=== PATIENT | male | born 1965 | race Caucasian/White ===

== ENCOUNTER 2016-09-16 16:54 | Observation (INO) | payer OTHER ==
[~2016-09-16] VITALS: Ht 177.8 cm; Wt 78.0 kg
[~2016-09-16 16:54] MED LIST: ALBU8.5H2 INHALATION; ALFU10TA11 PO; CHOL10008 PO; CYCL10TA9 PO; EZET10TA PO; GABA-504 PO; METO-272 PO; MORP15TA PO; MULT-1018 PO; OMEP40CA36 PO; OXYC-474 PO; PROC10TA PO; RANI150C4 PO; TAMS0.4C98 PO; WARF5TAB7 PO
[2016-09-16 18:36] VITALS: PULSE 100
[2016-09-16 19:05] VITALS: BP 127/88; PULSE 97; RESP 18; O2SAT 96
--- NOTE | 2016-09-16 19:05 | NUR ---
Arrived to unit Patient arrived to [facility] via [facility] transport. Patient sinus tach in the 100s on arrival. All other VSS. Patient is A&Ox3. Patient resting in bed, at bedside, call light within reach. MD notified of patients arrival.
[2016-09-16] MEDS ORDERED: [UNRECOGNIZED DRUG - OTHER] IV SCH (19:30)
[2016-09-16] MEDS ORDERED: KCL IV SCH (19:30)
[2016-09-16] MEDS ORDERED: NACL IV SCH (19:30)
[2016-09-16] MEDS ORDERED: NITR0.3T6 SL (19:55)
[2016-09-16] MEDS ORDERED: ONDA-53 PO (19:55)
[2016-09-16] MEDS ORDERED: DABI150C PO (19:57)
[2016-09-16] MEDS ORDERED: MORP30CA17 PO (19:58)
[2016-09-16] MEDS ORDERED: DILT-17 PO (20:01)
[2016-09-16] MEDS ORDERED: METO50TA3 PO (20:01)
[2016-09-16 20:42] LABS: TROPONIN T < 0.010 ug/L (0.0-0.011)
[2016-09-16 20:52] LABS: Phosphorus 3.1 mg/dL (2.5-4.9)
[2016-09-16 21:07] VITALS: BP 133/89; PULSE 91; RESP 20; O2SAT 94
[2016-09-16] MEDS: Dabigatran 150 mg Capsule PO SCH (21:15)
[2016-09-16] MEDS ORDERED: Azithromycin Inj 500 MG in Dextrose 5% w/Vial Mate 250 ML IV SCH ×2 (21:20→21:30)
--- NOTE | 2016-09-16 21:20 | PCM.HPMED ---
Subjective Date of Service Sep 16, 2016 Primary Provider: Admitting Physician: Cass Brooks MD Primary Care Physician: Other,Physician Attending Physician: Cass Brooks MD Chief Complaint: Transfer from [facility] due to ventricular tachycardia episodes [facility] History of present illness 51-year-old man with DM, chronic paradoxic atrial fibrillation, on Pradaxa/ diltiazem, presented to [facility] ER after nausea this morning proceeding to vomit and having diarrhea initially food then bile without blood in stool or vomitus then chest pain ensued and he was found to be in RVR 200s in the ER. Chest pain resolved as diltiazem drip was started and HR was controlled. Recent colonoscopy EGD have been normal per patient. Patient has had preceding cough for 2 weeks and green phlegm for 2 days. Children have been sick Last admitted 3 months ago [facility] for nausea vomiting diarrhea that had led to RVR. Peripheral neuropathy present but no gastroparesis diagnosis. No hx of small bowel obstruction and no abdominal operations. No constipation. No GERD sensation today. ate the same food last night and is not sick. Ambulatory. In the ER, pt also noted to have PVC episodes, [facility] transfer in anticipation for cardioversion/CAD[facility]. However, then the Afib converted to Sinus tachy by 5pm per ER doc, but due to vomiting / nausea, dilt gtt ongoing, since he vomited his dilt this am. In PCC, heart rate 99. Review of Systems - none of the following - F/C/ wt change/ / acid reflux / bleeding/bruising / leg swelling / change in voiding / rash FAMILY HX no irregular heartbeats SOCIAL HX current smoker 1 pack per day MEDICATIONS pradaxa, Zetia, not on decadron as listed on formerly [facility] notes, dilt, metoprolol morphine insulin Albuterol flomax alfuzosin Flexeril Gabapentin 400 3 times a day Omeprazole Ranitidine Past Medical/Surgical HX DM2 HTN afib BPH Dysphasia/GERD/colon polyps/weight loss significant 2015/constipation Hearing deficit AK I due to meds status post hemodialysis Allergies Coded Allergies: lisinopril (Verified Allergy, Unknown, 11/30/15) simvastatin (Verified Allergy, Unknown, 3/28/16) varenicline (Verified Allergy, Unknown, 11/30/15) PMH Social History Hx Alcohol Use: No Hx Substance Use: No Smoking Status: Current Some Day Smoker Exam Vital Signs Vital Sign - Last Date Time Temp Pulse Resp B/P Pulse Ox O2 Delivery O2 Flow Rate FiO2 09/16/16 19:05 36.5 97 18 127/88 96 Room Air Lab and Diagnostics Labs Exam on admission Fatigued appearance NAD A and O x 3 NC/AT no icterus no injected eyes EOMI PERRL /no pharyngeal lesions/ no oral lesions / hearing intact Supple neck CTAB equal chest rise / no accessory muscle use / speaks in full sentences / no rrw RRR S1 S2 / no mrg / 2+ radial pulses Soft nt nd + BS no hepatosplenomegaly No edema no cyanosis no ecchymosis of lower extremities No rash / no jaundice [facility] notes EKG QTC Troponin 0.04 WBC 21 Hemoglobin 15 LFTs normal except alkaline phosphatase 158 Creatinine 0.8 Potassium sodium magnesium normal 01/2016 echo Interpretation Summary The left ventricle is grossly normal size. The left ventricle is hyperdynamic. The ejection fraction is estimated to be 70-75%. The right ventricle is normal in size and function. No significant valvular pathology seen. 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 -- IV Dilts, held metoprolol for now, pradaxa, nothing by mouth, monitor electrolytes, serial trop Vomiting and diarrhea recurrent -- Consider gastroparesis, no known triggers Bronchitis -- Sputum culture pending, PCR viral strep screen pending, when necessary duo nebs, Rocephin and azithromycin -- Consider H CAP, since admitted 3 months ago for vomiting diarrhea RVR at [facility] Chronic issues known prior to admission, present on admission GERD DM chronic pain BPH --SSI, otherwise resume home medications Diet NPO DVT prophylaxis lovenox Code full Disposition inpt status Assessment and plan were discussed with patient Cass Brooks MD Sep 16, 2016 21:20
[2016-09-16] MEDS ORDERED: cefTRIAXone Inj 1,000 MG in IV Premix 1 EACH IV SCH (21:30)
[2016-09-16] MEDS: Famotidine Inj 20 MG in IV Premix 1 EACH IV SCH (22:21)
[2016-09-16 23:07] VITALS: BP 129/86; PULSE 95; RESP 20; O2SAT 97
--- NOTE | 2016-09-17 01:10 | NUR ---
Pain Pt has chronic back pain from many years. He is taking regularly at home large amounts of prescribed analgesics. Currently, HS provider ordered 6mg Morphine IV push q3h. Pt continues to rate pain between 8-9 with or without Morphine.
[2016-09-17] MEDS: Diltiazem 5 mg/mL 5 mL Inj IVPUSH SCH ×2 (02:30→08:03)
[2016-09-17] MEDS ORDERED: Insulin Human REGular 300 Unit/3 mL Inj SUBQ SCH ×2 (02:30→07:30)
[2016-09-17 03:24] VITALS: BP 129/82; PULSE 80; RESP 22; O2SAT 95
[2016-09-17 04:10] VITALS: BP 148/91; PULSE 83; RESP 20; O2SAT 98
[2016-09-17 05:06] VITALS: PULSE 94
[2016-09-17 07:57] VITALS: BP 147/98; PULSE 86; RESP 20; O2SAT 96
[2016-09-17] MEDS: Famotidine Inj 20 MG in IV Premix 1 EACH IV SCH (08:03)
[2016-09-17] MEDS: Dabigatran 150 mg Capsule PO SCH (08:04)
[2016-09-17 10:06] VITALS: PULSE 72
[2016-09-17] MEDS ORDERED: Glucose 40% Oral Gel 15 Gm Tube PO PRN (10:50)
[2016-09-17] MEDS ORDERED: Morphine ER 30 mg (MS Contin) Tablet PO SCH (11:15)
[2016-09-17] MEDS ORDERED: Diltiazem CD 120 mg ER24 Capsule PO SCH (12:01)
[2016-09-17] MEDS: Insulin LISPRO 300 Unit/3 mL Inj SUBQ SCH ×2 (12:15→17:30)
--- NOTE | 2016-09-17 12:28 | CONS ---
[address] [address] CONSULTATION REPORT PATIENT: RENA SHEPHERD : 1965 MR#: [id number] ADMIT: 09/16/2016 JOB ID: [id number] DATE OF SERVICE: 09/17/2016 CHIEF COMPLAINT: I was asked by Dr. Thomas to consult on this patient given admission with atrial fibrillation. HISTORY OF PRESENT ILLNESS: The patient is a 51-year-old man with past medical history significant for atrial fibrillation. He is followed by Dr. Stark in Cardiology. He has generally done very well on a dose of Cardizem as well as metoprolol. He is also on Pradaxa. He says over the past several months he has been having problems with intermittent stomach problems. He said that he has diabetes and apparently was worked up for gastroparesis which was unremarkable. He has had both endoscopy and colonoscopy in November 2015, which did not establish any significant diagnosis, although he had peptic duodenitis, chronic gastritis, and colon polyps. Yesterday he got up in the morning and just did not feel well. He had some nausea and vomiting. After that settled down he tried to take his a.m. meds which include the medications used to control his atrial fibrillation. He was not able to keep anything down and he promptly vomit up most of his medications as well. He went to lie down and see if things would settle down and then noticed that his heart rate was high and he also felt some tightness in his arm. He felt he had atrial fibrillation. He was seen at [facility] and he was found to be in AFIB with high rate. He was starting on a diltiazem drip where his heart rate was controlled and ultimately he converted to sinus rhythm. Since being here he has been in sinus rhythm. He describes his stomach symptoms as starting with hiccups followed by a lot of gas. He is trying to adjust his diet to control these symptoms, including his problems with significant GERD. For example, he has eliminated carvajal peppers from his diet. Since being admitted, he is now feeling well. He denies any nausea or vomiting. He is now in sinus rhythm. He denies chest pain, shortness of breath, orthopnea, PND, lower extremity edema. PAST MEDICAL HISTORY/PROBLEM LIST: 1. History of atrial fibrillation. 2. History of stomach issues. 3. History of diabetes mellitus. HOME MEDICATIONS: Include: 1. Pradaxa. 2. Cardizem 120 mg daily. 3. Metoprolol 50 mg b.i.d. 4. Omeprazole. 5. Zetia. ALLERGIES: INCLUDE LISINOPRIL, SIMVASTATIN, VARENICLINE. SOCIAL HISTORY: He is a smoker. No significant alcohol. FAMILY HISTORY: No early coronary disease. REVIEW OF SYSTEMS: Constitutional: No fevers, chills, night sweats, or weight loss. GI: Nausea and vomiting as noted. Issues with stomach upset, GERD. With recent workup by GI. Endocrine: Diabetes mellitus. No heat or cold intolerance. Musculoskeletal: No joint pain. No joint swelling. Heme: No easy bruising or bleeding. Neuro: No history of chronic headaches. ENT: No sore throat or difficulty swallowing. Ophtho: No vision changes. Derm: No rashes or skin breakdown. Psych: No acute issues. Renal: No history of dysuria or hematuria. Cardiac: As per HPI. No orthopnea, PND, or lower extremity edema. All other review of systems on a 12-point review of systems is negative. PHYSICAL EXAMINATION: Blood pressure is 147/98, heart rate 86, saturations are 96% on room air. Constitutional: In no acute distress. Speaking in full sentences without apparent shortness of breath. Head and neck: Normocephalic, atraumatic. Vascular: No carotid bruits appreciated, 2+ distal pulses. Heart: Regular rate and rhythm. I do not appreciate murmurs, gallops, or rubs. Lungs: Coarse breath sounds followed by a cough. He says he has had a somewhat chronic cough over the last month. Back: No CVA tenderness to palpation. Abdomen: Soft, with some diffuse tenderness but no rebound or guarding. Nondistended. Extremities: Warm. No appreciable edema. As noted, 2+ distal pulses. Skin: Without breakdown appreciated. Neuro: Alert and oriented x3. Gait is not tested. Psych: Appropriate mood and affect. ENT: Mucous membranes are moist. Heme: no bruising appreciated CURRENT MEDICATIONS: Include metoprolol 50 b.i.d., Zetia 10 mg daily, gabapentin 400 t.i.d., Pradaxa 150 mg b.i.d., tamsulosin 0.4 mg daily, diltiazem as needed, ceftriaxone and azithromycin for his lung issues, and insulin. I do not see a long-acting calcium channel kandace on his current med list. LABORATORY DATA: I do not have access to an EKG but telemetry shows sinus rhythm. Other more recent studies show an echocardiogram which was performed this year which showed normal LV size and systolic function. No significant structural disease. Current imaging from here shows a chest x-ray that showed no acute cardiopulmonary disease. Labs from yesterday show sodium 135, chloride and bicarb of 97 and 24 respectively, BUN and creatinine 10 and 0.49, glucose 296. Troponin less than 0.01. I do not have a hematology but I presume this was done at [facility]. IMPRESSION: The patient has had ongoing problems with stomach upset and other issues. He developed nausea and vomiting yesterday. He did try to take his a.m. meds, which include medications for control of his atrial fibrillation, but he vomited these up and he went into atrial fibrillation while he was feeling poorly. He was put on a diltiazem drip and promptly cardioverted. He is now back on the metoprolol, which is one of his home medications, but currently is not on his calcium channel kandace. RECOMMENDATIONS: 1. As the atrial fibrillation occurred in the setting of nausea and vomiting, and he did not have the medications in his system, I think it would be reasonable to place him back on his outpatient medications, so we need to add back his Cardizem CD. 2. Continue with Pradaxa. 3. I would have him walk around and see how he feels; see if he has any changes in rhythm or any other concerning symptoms such as shortness of breath. 4. Regarding his gastrointestinal issues, I think we should see if he can eat and tolerate food. If he can do so, and everything else remains stable, I will leave it to the hospital team as to whether he is ready for discharge. 50 minutes was spent reviewing the patient's chart (including old records), speaking with an examining the patient as well as writing orders. NEEL
[2016-09-17 12:53] VITALS: BP 153/93; PULSE 71; RESP 18; O2SAT 98
--- NOTE | 2016-09-17 15:04 | NUR ---
Activity Patient A&O x3 and is independent in the room. Tele SR in the 70s and all other VSS. Patient has been up ambulating in the ramires several times today. He has chronic back pain for which he takes routine and PRN morphine. Patient ate 100% of his lunch and is toelrating PO intake well. Denies N/V today. Patient sitting in bed, watching TV with at the bedside.
--- NOTE | 2016-09-17 17:26 | PCM.DIMED ---
LEEROY LIVINGSTON DO 09/17/16 1726: Discharge Instructions Date of Service Sep 17, 2016 Dates of Hospitalization Sep 16, 2016 at 18:32 Discharge Diagnosis Discharge Diagnosis 1. Atrial fibrillation with Rapid Ventricular Responses 2. Vomiting and diarrhea recurrent 3. Bronchitis 4. Hyperglycemia non-DKA 5.GERD 6.DM 7.chronic pain 8.BPH Diet No restrictions, Heart Healthy, Diabetic (Limit Carb intake Please refer to Dr. Juárez's the Diabetic Solution) Activity No restrictions Call your provider Fever or Chills, Shortness of breath, Bleeding, Chest pain, Vomitting Patient Instructions 1. Ventricular tachycardia episodes, Continue Home medications Follow up with PCP within one week Follow up with cardiology in 1-2 weeks 2. Vomiting and diarrhea recurrent - Follow up with your Primay care doctor in one week - Keep well hydrated 3. Bronchitis -Continue with home medications - 4. Hyperglycemia non-DKA -Diabetic diet low carb 45 g daily Please refer to Dr. Juárez's the Diabetic Solution - monitor blood sugars daily - Goal A1c less than 6.4 Resume home medications Follow-up plan See above Follow-up with PCP in: 1 week Deion Thomas MD 09/17/16 2123: Discharge Instructions Attending's Statement The patient was seen and examined together with Dr. Livingston on 09/17/2016 and I agree with the history, exam and plan as outlined in the note above. . LEEROY LIVINGSTON DO Sep 17, 2016 17:26 Deion Thomas MD Sep 17, 2016 21:23
--- NOTE | 2016-09-17 17:42 | PCM.DC.MED ---
Discharge Summary Date of Service Sep 17, 2016 Dates of Hospitalization Date of Hospital Admission Sep 16, 2016 at 18:32 Date of Discharge: Sep 17, 2016 Providers: Admitting Physician: Cass Brooks MD Primary Care Physician: Other,Physician Attending Physician: Cass Brooks MD Diagnosis at Time of Discharge Diagnosis at Time of Discharge 1. Atrial fibrillation with Rapid Ventricular Response 2. Vomiting and diarrhea recurrent 3. Bronchitis 4. Hyperglycemia non-DKA 5. GERD 6. DM 7. Chronic pain 8. BPH . Consultations Cardiology Procedures XRay, CTs & MRIs X-RAY CHEST IMPRESSION: No acute cardiopulmonary disease. Dictated by: Maury Sneed RRA Interpreted: Kelli Rangel MD on 12/22/2015 at 13: 55 Transcribed by: ANTWAN on 12/22/2015 at 13:55 Approved by: Kelli Rangel M.D. on 12/22/2015 at 14:56 . Brief History From the H&P performed by Dr. Cass Brooks MD on 09/16/16: 51-year-old man with DM, chronic paradoxic atrial fibrillation, on Pradaxa/ diltiazem, presented to [facility] ER after nausea this morning proceeding to vomit and having diarrhea initially food then bile without blood in stool or vomitus then chest pain ensued and he was found to be in RVR 200s in the ER. Chest pain resolved as diltiazem drip was started and HR was controlled. Recent colonoscopy EGD have been normal per patient. Patient has had preceding cough for 2 weeks and green phlegm for 2 days. Children have been sick Last admitted 3 months ago [facility] for nausea vomiting diarrhea that had led to RVR. Peripheral neuropathy present but no gastroparesis diagnosis. No hx of small bowel obstruction and no abdominal operations. No constipation. No GERD sensation today. ate the same food last night and is not sick. . Hospital Course 1. Afib with ventricular tachycardia episodes, present on admission. Resolved. - Known paroxysmal atrial fibrillation, with resolved RVR that was triggered by recurrent vomiting - NS 1 L IV fluid, completed - Continue home morphine for chronic pain, completed, continue as outpatient - Continue home diltiazem dose as outpatient - Continue metoprolol as outpatient - Continue Pradaxa as outpatient , - Serial trop Q6, negative - Cardiology consulted we appreciate their time and expertise 2. Vomiting and diarrhea recurrent, resolved - Consider gastroparesis, History of uncontrolled blood sugar last A1c 8.6 - Follow up with PCP 3. Hyperglycemia non-DKA - Continue Diabetic diet low carb 45 g daily - Monitor blood sugars daily - Follow up with PCP to adjust medication regimen . Exam Vital Signs (Last) Date Time Temp Pulse Resp B/P Pulse Ox O2 Delivery O2 Flow Rate FiO2 09/17/16 12:53 36.8 71 18 153/93 98 Room Air Exam General: Alert, Oriented X3, Cooperative, No Acute Distress Head: Normocephalic, atraumatic Eyes: PERRLA, EOMI. ENT: Mucous Membranes Moist/Mcgrath Chest & Lungs: Clear to auscultation bilaterally with no crackles, wheezes, or rhonchi. Cardiovascular: Regular Rate/Rhythm, Normal S1, Normal S2, No Murmurs/Rubs/ Gallops Abdomen: Non-tender, Non-distended, No masses, Normoactive bowel tones, Soft Extremities: No cyanosis/clubbing/edema bilaterally Neurological: Grossly Neurologically Intact Test 09/16/16 19:55 Sodium Level 135mEq/L (134-144) Potassium Level 4.4mEq/L (3.5-5.2) Chloride Level 97mEq/L (97-108) Carbon Dioxide Level 24mmol/L (18-29) Blood Urea Nitrogen 10mg/dL (6-24) Creatinine 0.49mg/dL (0.76-1.27) Estimat Glomerular Filtration Rate 189mL/min (>59) Glucose Level 296mg/dL (60-99) Calcium Level 8.7mg/dL (8.5-10.1) Phosphorus Level 3.1mg/dL (2.5-4.9) Magnesium Level 2.0mg/dL (1.6-2.6) Troponin T < 0.010ug/L (0.0-0.011) Thyroid Stimulating Hormone (TSH) 0.688uIU/mL (0.450-4.500) Free Thyroxine 1.58ng/dL (0.82-1.77) Hold Pisano Top Tube Received (Received) Discharge Medications Discharge Medications Dabigatran Etexilate Mesylate (Pradaxa) 150 Mg Capsule 150 MG PO BID (Reported) Diltiazem ER (Diltiazem ER) 120 Mg Cap.er.24h 120 MG PO DAILY (Reported) Ezetimibe (Zetia) 10 Mg Tablet 10 MG PO DAILY (Reported) Gabapentin (Gabapentin) 400 Mg Capsule 400 MG PO TID (Reported) Metoprolol Tartrate (Metoprolol Tartrate) 50 Mg Tablet 50 MG PO BID (Reported) Morphine Sulfate ER (Morphine Sulfate ER) 30 Mg Capsule 30 MG PO BID (Reported) Ranitidine (Ranitidine) 150 Mg Capsule 150 MG PO DAILY (Reported) Tamsulosin (Flomax) 0.4 Mg Capsule 0.4 MG PO DAILY (Reported) As needed Cyclobenzaprine (Cyclobenzaprine) 10 Mg Tablet 10 MG PO HS PRN PRN Spasm ( Reported) Morphine Sulfate (Morphine Sulfate) 15 Mg Tablet 15 MG PO TID PRN PRN For Pain ( Reported) Nitroglycerin (Nitroglycerin) 0.3 Mg Tab.subl 0.3 MG SL Q5MIN PRN PRN For Chest Pain (Reported) Prochlorperazine Maleate (Prochlorperazine) 10 Mg Tablet 10 MG PO Q8 PRN PRN For Nausea/Vomiting (Reported) Miscellaneous Medications Ondansetron (Ondansetron) 4 Mg Tablet 4 MG PO (Reported) Followup Plan Follow-up plan See above Discharge Diet: No restrictions, Heart Healthy, Diabetic (Limit Carb intake Please refer to Dr. Juárez's the Diabetic Solution) Discharge Activity: No restrictions Patient Instructions 1. Ventricular tachycardia episodes, - Continue home medications - Follow up with Primary Care Physician within one week - Follow up with Cardiology in 1-2 weeks 2. Vomiting and diarrhea recurrent - Follow up with your Primary Care doctor in one week - Keep well hydrated 3. Bronchitis - Continue with home medications 4. Hyperglycemia non-DKA - Diabetic diet, low carb, 45 g daily. Please refer to Dr. Juárez's The Diabetic Solution - Monitor blood sugars daily - Goal A1c less than 5.3 Resume home medications . Follow-up with PCP in: 1 week Time spent Greater than 30 minutes was spent in preparation of discharge with greater than 50% of that time dedicated to patient counseling and coordination of care. . Attending Statement The patient was seen and examined together with Dr. Livingston on 09/17/2016 and I agree with the history, exam and plan as outlined in the note above. . LEEROY LIVINGSTON 14, 2017 17:42 Deion Thomas MD Sep 18, 2016 08:17
--- NOTE | 2016-09-17 18:34 | NUR ---
Discharge Patient remains SR in the 70s all other VSS. Discharge instructions printed and reviewed verbally with patient. There were no medication changes this visit. IVs DC'd intact. Patient left unit via wc with all personal belongings accompanied by his . Discharged home via personal vehicle.
--- OUTSIDE RECORDS SUMMARY | 2016-09-28 08:12 | XMS | Continuity of Care Document ---
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 Name Role Phone Unavailable Unavailable Allergies, Adverse Reactions, Alerts Allergen Type Severity Reaction Last Updated Verified Status lisinopril Allergy Severe COMA September 22, 2016 Y Active Wxsljdi-Oof-Uar Reductase Inhibitor Allergy Severe COMA September 22, 2016 Y Active varenicline tartrate * Adverse Reaction Unknown September 22, 2016 Y Active INH Adverse Reaction Unknown September 22, 2016 Active Medications Active Medications Medication Dose Units Route Sig Qty Days Start Date Discontinued Date Status Instructions Ranitidine Hcl 150 MG ORAL TWICE A DAY January 04, 2013 Active Albuterol Sulfate 2 PUFFS INHALATION Q4H PRN For Wheezing March 18, 2015 Active Tamsulosin 0.4 MG ORAL DAILY January 20, 2016 Active Gabapentin 1200 MG ORAL THREE TIMES A DAY April 04, 2016 Active Dabigatran Etexilate Mesylate 150 MG ORAL TWICE A DAY June 25, 2016 Active Ezetimibe 10 MG ORAL DAILY June 25, 2016 Active Nitroglycerin 0.4 MG ORAL Q5M PRN For Chest Pain June 25, 2016 Active Morphine Ir 15 MG ORAL THREE TIMES A DAY PRN For Breakthrough Pain July 01, 2016 Active Morphine Er 30 MG ORAL TWICE A DAY July 01, 2016 Active Cyclobenzaprine 10 MG ORAL THREE TIMES A DAY PRN For NECK TIGHTNESS September 07, 2016 Active Acetaminophen 1000 MG ORAL BEFORE MEALS PRN For Pain September 21, 2016 Active Cholecalciferol (Vitamin D3) 2000 UNIT ORAL DAILY September 21, 2016 Active Metoprolol Tartrate 50 MG ORAL TWICE A DAY September 21, 2016 Active Multivitamin W/Minerals 1 TAB ORAL DAILY September 21, 2016 Active Ranitidine 150 MG ORAL TWICE A DAY September 21, 2016 Active Ondansetron Odt 4 MG TRANSLING FOUR TIMES DAILY PRN For Nausea / Vomiting September 21, 2016 Active Insulin Regular, Human 1 - 10 UNIT SUBCUTANEOUSLY .SLIDINGSCALE September 21, 2016 Active Insulin Glargine,Hum.Rec.Anlog 40 UNIT SUB-Q EVERY EVENING September 21, 2016 Active Promethazine 25 MG ORAL THREE TIMES A DAY PRN For Nausea / Vomiting September 21, 2016 Active Aspirin Chewable 81 MG ORAL DAILY September 22, 2016 Active Diltiazem Hcl 225 MG ORAL DAILY September 22, 2016 Active Discontinued Medications Medication Dose Units Route Sig Qty Days Start Date Discontinued Date Status Instructions Citalopram 40 MG ORAL DAILY January 04, 2013 October 28, 2015 Discontinued Gabapentin 1200 MG ORAL THREE TIMES A DAY January 04, 2013 November 01, 2015 Discontinued Metformin Hcl 850 MG ORAL THREE TIMES A DAY January 04, 2013October Discontinued Oxycodone 10 MG ORAL Q6H PRN For Pain January 04, 2013 July 01, 2016 Discontinued Trazodone 100 MG ORAL BEDTIME January 04, 2013 March 17, 2015 Discontinued Metoprolol Tartrate 50 MG ORAL TWICE A DAY March 17, 2015 January 20, 2016 Discontinued Promethazine 25 MG ORAL EVERY 8 HOURS PRN For Nausea / Vomiting March 17, 2015 October 28, 2015 Discontinued Warfarin 5 MG ORAL DAILY March 17, 2015 June 25, 2016 Discontinued Insulin Regular Human 21 UNIT SUBCUTANEOUSLY THREE TIMES A DAY March 17, 2015 October 28, 2015 Discontinued Insulin Glargine,Hum.Rec.Anlog 40 UNIT SUB-Q EVERY EVENING March 17, 2015 October 28, 2015 Discontinued Acetaminophen 1000 MG ORAL 3 TIMES DAILY BEF MEALS & BEDT PRN For Pain March 18, 2015 November 01, 2015 Discontinued Cholestyramine 4 GM ORAL DAILY March 18, 2015 October 28, 2015 Discontinued Mirtazapine 7.5 MG ORAL EVERY EVENING PRN For Insomnia March 18, 2015 October 28, 2015 Discontinued Multivit,Th Iron,Other Min 1 TAB ORAL DAILY March 18, 2015 January 20, 2016 Discontinued Niacin 1000 MG ORAL EVERY EVENING March 18, 2015 October 28, 2015 Discontinued Cholecalciferol (Vitamin D3) 1000 UNIT ORAL DAILY March 18, 2015 September 07, 2016 Discontinued Sertraline 25 MG ORAL DAILY March 18, 2015 October 28, 2015 Discontinued Warfarin 5 MG ORAL DAILY March 18, 2015 March 18, 2015 Discontinued Promethazine 25 - 50 MG ORAL Q6H PRN For Nausea / Vomiting 30 MarchOctober 28, 2015 Discontinued 1-2 Tabs Omeprazole 20 MG ORAL TWICE A DAY 60 October 31, 2015 November 01, 2015 Discontinued Sucralfate 1 GM ORAL BEFORE MEALS AND AT BEDTIME 120 October 31, 2015 January 20, 2016 Discontinued Ondansetron Odt 4 MG TRANSLING Q6H PRN For Nausea / Vomiting 10 October 31, 2015 February 29, 2016 Discontinued Omeprazole 1 CAP ORAL DAILY November 01, 2015 February 29, 2016 Discontinued Lidocaine Hcl 10 ML MUCOUS MEM Q6H PRN For Abdominal Pain 200 November 01, 2015 January 20, 2016 Discontinued Amoxicillin 1000 MG ORAL TWICE A DAY 40 November 01, 2015 February 29, 2016 Discontinued Clarithromycin 500 MG ORAL TWICE A DAY 20 November 01, 2015 February 29, 2016 Discontinued Ondansetron Hcl 4 MG ORAL Q6H PRN For Nausea / Vomiting 10 OctoberFebruary 29, 2016 Discontinued Albuterol 2.5 MG ORAL DAILY January 20, 2016 February 29, 2016 Discontinued Cyclobenzaprine 10 MG ORAL THREE TIMES A DAY January 20, 2016 July 22, 2016 Discontinued Diltiazem Cd 120 MG ORAL DAILY January 20, 2016 September 22, 2016 Discontinued Morphine Ir 15 MG ORAL DAILY PRN For Pain January 20, 2016 February 29, 2016 Discontinued Prochlorperazine 10 MG ORAL THREE TIMES A DAY PRN For Nausea / Vomiting January 20, 2016 July 22, 2016 Discontinued Ondansetron Odt 4 MG TRANSLING Q6H PRN For Nausea / Vomiting 10 JanuaryFebruary 29, 2016 Discontinued Alfuzosin Hcl 10 MG ORAL DAILY April 04, 2016 June 25, 2016 Discontinued Morphine Er 15 MG ORAL 5 TIMES DAILY April 04, 2016 April 06, 2016 Discontinued Multivitamin 1 TAB ORAL DAILY April 04, 2016 September 07, 2016 Discontinued Omeprazole 40 MG ORAL DAILY April 04, 2016 June 25, 2016 Discontinued Docusate Sodium 250mg Capsule 250 - 500 MG ORAL DAILY 30 April 06, 2016 July 22, 2016 Discontinued Hydromorphone 2 MG ORAL EVERY 6 HOURS PRN For Severe Pain 30 AprilJune 25, 2016 Discontinued Morphine Er 30 MG ORAL THREE TIMES A DAY 45 April 06, 2016June Discontinued Ondansetron Hcl 4 MG ORAL Q6H PRN For Nausea / Vomiting May 14, 2016 July 22, 2016 Discontinued Metoclopramide 10 MG ORAL BEFORE MEALS AND AT BEDTIME PRN For Nausea / Vomiting May 31, 2016 June 25, 2016 Discontinued Ondansetron Odt 4 MG TRANSLING Q6H PRN For Nausea / Vomiting June 25, 2016 September 21, 2016 Discontinued Sucralfate 1 GM ORAL BEFORE MEALS AND AT BEDTIME July 07, 2016 September 07, 2016 Discontinued Diltiazem Hcl 180 MG ORAL DAILY 30 September 22, 2016 September 22, 2016 Discontinued Problem List Active Problems Medical Problem Onset Date Status Abdominal pain Active Abnormal LFTs (liver function tests) Active Accidental fall Active Acute narcotic withdrawal Active Alkalosis Active Anticoagulant long-term use Active Atrial fibrillation Active Atrial fibrillation and flutter Active Atrial fibrillation with rapid ventricular response Active Cellulitis Active Chest pain Active Chest pain Active Chronic atrial fibrillation Active Chronic bilateral back pain Active Chronic pain Active Dehydration Active Epigastric pain Active Fluid overload Active GERD (gastroesophageal reflux disease) Active Gastritis Active Hallucinations Active Head contusion Active Headache Active Helicobacter pylori antibody positive Active Hyperglycemia Active Hyperlipidemia associated with type 2 diabetes mellitus Active Hypertension Active Hypertensive urgency Active Hypomagnesemia Active Intractable nausea and vomiting Active Left leg swelling Active Mixed acid base balance disorder Active Nausea & vomiting Active Nausea and vomiting in adult Active Nausea vomiting and diarrhea Active Paroxysmal a-fib Active Peripheral edema Active Pneumonia Active Pruritic erythematous rash Active Supratherapeutic INR Active T2DM (type 2 diabetes mellitus) Active Tachycardia Active Vomiting Active Warfarin anticoagulation Active Procedures Procedure Date Status Clostridium difficile (PCR) April 29, 2016 completed Blood Culture April 03, 2016 completed Relevant Diagnostic Tests and/or Laboratory Data Laboratory Results Test Date/Time Result Interp. Ref. Range Result Comment White Blood Count September 22, 2016 10:25pm 10.1 x10^3/uL 4.8-10.8 Red Blood Count September 22, 2016 10:25pm 4.75 10^6/uL 4.70-6.10 Hemoglobin September 22, 2016 10:25pm 13.4 g/dL Low 14.0-18.0 Hematocrit September 22, 2016 10:25pm 40.5 % Low 42.0-52.0 Mean Corpuscular Volume September 22, 2016 10:25pm 85.4 fL 80.0-94.0 Mean Corpuscular Hemoglobin September 22, 2016 10:25pm 28.2 pg 27.0-31.0 Mean Corpuscular Hemoglobin Concent September 22, 2016 10:25pm 33.0 g/dL 32.0-36.0 Red Cell Distribution Width September 22, 2016 10:25pm 14.4 % 12.0-15.0 Mean Platelet Volume September 22, 2016 10:25pm 8.1 fL 7.4-11.4 Neutrophils # (Auto) September 22, 2016 10:25pm 5.6 10^3/uL 1.5-6.6 Monocytes # (Auto) September 22, 2016 10:25pm 0.7 10^3/uL 0.0-1.0 Eosinophils # (Auto) September 22, 2016 10:25pm 0.2 10^3/uL 0.0-0.7 Basophils # (Auto) September 22, 2016 10:25pm 0.1 10^3/uL 0.0-0.1 Nucleated Red Blood Cells September 22, 2016 10:25pm 0.0 /100WBC Nucleated RBC Absolute Count (auto) September 22, 2016 10:25pm 0.00 x10^3/uL RBC Morphol Microscopic Appearance September 16, 2016 1:34pm 1+ ANISOCYTOSIS Erythrocyte Sedimentation Rate January 23, 2016 12:48am 20 mm/Hr 0-20 Prothrombin Time September 22, 2016 10:25pm 12.3 secs 9.9-12.6 Prothromb Time International Ratio September 22, 2016 10:25pm 1.1 0.8-1.2 Oral Anticoagulant Indication INR range Venous Thrombosis, P.E. 2.0 - 3.0 Mechanical Valve 2.5 - 3.5 Urine Color September 21, 2016 11:40am YELLOW Urine Clarity September 21, 2016 11:40am CLEAR Urine Leukocyte Esterase September 21, 2016 11:40am NEGATIVE Urine Nitrite September 21, 2016 11:40am NEGATIVE Urine Urobilinogen September 21, 2016 11:40am 0.2 (NORMAL) E.U./dL Urine Protein September 21, 2016 11:40am NEGATIVE mg/dL Urine pH September 21, 2016 11:40am 7.0 PH Urine Occult Blood September 21, 2016 11:40am NEGATIVE Urine Specific [place] September 21, 2016 11:40am 1.010 Urine Ketones September 21, 2016 11:40am TRACE mg/dL Urine Bilirubin September 21, 2016 11:40am NEGATIVE Urine Glucose (UA) September 21, 2016 11:40am >=1000 mg/dL High Urine Microscopic Review September 21, 2016 11:40am NOT INDICATED Urine WBC January 23, 2016 1:24am 0-3 /HPF Urine RBC January 23, 2016 1:24am None Seen /HPF Urine Squamous Epithelial Cells January 23, 2016 1:24am NONE SEEN Urine Bacteria January 23, 2016 1:24am Rare /HPF Urine Culture Comments September 21, 2016 11:40am NOT INDICATED Sodium Level September 22, 2016 10:25pm 130 mmol/L Low 135-145 Potassium Level September 22, 2016 10:25pm 4.1 mmol/L 3.5-5.0 Chloride Level September 22, 2016 10:25pm 91 mmol/L Low 101-111 Carbon Dioxide Level September 22, 2016 10:25pm 27 mmol/L 21-32 Anion Gap September 22, 2016 10:25pm 12.0 6-13 Blood Urea Nitrogen September 22, 2016 10:25pm 21 mg/dL High 6-20 Creatinine September 22, 2016 10:25pm 0.8 mg/dL 0.6-1.2 Estimated GFR (MDRD) September 22, 2016 10:25pm 101 89- The IDMS- traceable MDRD Study Equation has been validated extensively in and populations between the ages of 18 and 70 with impaired kidney function (eGFR < 60 mL/min/1.73m2) and has shown good performance for patients with all common causes of kidney disease. Although this equation has not been validated for patients older than 70, an MDRD-derived eGFR may still be a useful tool for providers caring for patients older than 70. References: http://www.nkdep.nih.gov/lab-evaluation/gfr/creatinine- standardization, last updated November 2011. Glucose Level September 22, 2016 10:25pm 441 mg/dL High 70-100 GLUCOSE REFERENCE RANGE: Fasting 70-100 mg/dL Random <200 mg/dL Glycated Hemoglobin September 21, 2016 9:45am 9.7 % High 4.6-6.2 Estimated Average Glucose (eAG) September 21, 2016 9:45am 232 High 70-100 Calcium Level September 22, 2016 10:25pm 9.1 mg/dL 8.5-10.3 Phosphorus Level September 16, 2016 1:34pm 3.1 mg/dL 2.5-4.6 Magnesium Level September 16, 2016 1:34pm 2.0 mg/dL 1.7-2.8 Total Bilirubin September 22, 2016 5:00am 0.6 mg/dL 0.2-1.0 Gamma Glutamyl Transpeptidase April 04, 2016 2:00am 23 IU/L 8-55 Aspartate Amino Transf (AST/SGOT) September 22, 2016 5:00am 18 IU/L 10-42 Alanine Aminotransferase (ALT/SGPT) September 22, 2016 5:00am 24 IU/L 10- 60 Alkaline Phosphatase September 22, 2016 5:00am 117 IU/L 42-121 Total Creatine Kinase June 25, 2016 8:00pm 268 IU/L 22-269 Creatine Kinase MB June 25, 2016 8:00pm 4.2 ng/mL 0.6-6.3 Troponin I September 22, 2016 10:25pm < 0.04 ng/mL A TROPONIN result of >=0.50 ng/mL is considered POSITIVE. C-Reactive Protein January 23, 2016 12:48am < 1.0 mg/dL Assay Limitation: samples should not be tested using this CRP Assay. B-Type Natriuretic Peptide April 03, 2016 10:45pm 47 pg/mL 5-100 Total Protein September 22, 2016 5:00am 7.0 g/dL 6.7-8.2 Albumin September 22, 2016 5:00am 4.0 g/dL 3.2-5.5 Globulin September 22, 2016 5:00am 3.0 g/dL 2.1-4.2 Albumin/Globulin Ratio September 22, 2016 5:00am 1.3 1.0-2.2 Amylase Level January 24, 2016 5:45am 17 U/L Low 28-100 Lipase September 21, 2016 6:46am 28 U/L 22-51 Thyroid Stimulating Hormone (TSH) June 29, 2016 7:10pm 0.56 uIU/mL 0.34-5.60 Microbiology Results Procedure Source Result Collection Date/Time Result Date/Time Blood Culture Blood NO GROWTH AFTER 5 DAYS April 03, 2016 11:00pm Blood Culture Blood NO GROWTH AFTER 5 DAYS April 03, 2016 11:00pm Clostridium difficile (PCR) Stool No results entered April 29, 2016 3:13pm Advance Directives Advance Directive Response Recorded Date/Time Advance Directives on file? No September 21, 2016 10:37am Code Status Attempt Resuscitation September 21, 2016 9:40am Chief Complaint and Reason for Visit Encounter Admit Date Chief Complaint Reason for Visit Discharged Inpatient September 21, 2016 9:25am AFIB W/RVR CHEST PAIN Atrial fibrillation with rapid ventricular response Hyperglycemia Hospital Discharge Instructions Additional Discharge Instructions See your PCP and follow up with Dr. Mi head. No Instructions/Education Provided Hospital Discharge Medications Medication Dose Units Route Sig Qty Days Order Date Status Instructions Citalopram 40 MG ORAL DAILY January 04, 2013 Discontinued Gabapentin 1200 MG ORAL THREE TIMES A DAY January 04, 2013 Discontinued Metformin Hcl 850 MG ORAL THREE TIMES A DAY January 04, 2013 Discontinued Oxycodone 10 MG ORAL Q6H PRN For Pain January 04, 2013 Discontinued Ranitidine Hcl 150 MG ORAL TWICE A DAY January 04, 2013 Active Trazodone 100 MG ORAL BEDTIME January 04, 2013 Discontinued Metoprolol Tartrate 50 MG ORAL TWICE A DAY March 17, 2015 Discontinued Promethazine 25 MG ORAL EVERY 8 HOURS PRN For Nausea / Vomiting March 17, 2015 Discontinued Warfarin 5 MG ORAL DAILY March 17, 2015 Discontinued Insulin Regular Human 21 UNIT SUBCUTANEOUSLY THREE TIMES A DAY March 17, 2015 Discontinued Insulin Glargine,Hum.Rec.Anlog 40 UNIT SUB-Q EVERY EVENING March 17, 2015 Discontinued Acetaminophen 1000 MG ORAL 3 TIMES DAILY BEF MEALS & BEDT PRN For Pain March 18, 2015 Discontinued Albuterol Sulfate 2 PUFFS INHALATION Q4H PRN For Wheezing March 18, 2015 Active Cholestyramine 4 GM ORAL DAILY March 18, 2015 Discontinued Mirtazapine 7.5 MG ORAL EVERY EVENING PRN For Insomnia March 18, 2015 Discontinued Multivit,Th Iron,Other Min 1 TAB ORAL DAILY March 18, 2015 Discontinued Niacin 1000 MG ORAL EVERY EVENING March 18, 2015 Discontinued Cholecalciferol (Vitamin D3) 1000 UNIT ORAL DAILY March 18, 2015 Discontinued Sertraline 25 MG ORAL DAILY March 18, 2015 Discontinued Warfarin 5 MG ORAL DAILY March 18, 2015 Discontinued Promethazine 25 - 50 MG ORAL Q6H PRN For Nausea / Vomiting 30 March Discontinued 1-2 Tabs Omeprazole 20 MG ORAL TWICE A DAY 60 October 31, 2015 Discontinued Sucralfate 1 GM ORAL BEFORE MEALS AND AT BEDTIME 120 October 31, 2015 Discontinued Ondansetron Odt 4 MG TRANSLING Q6H PRN For Nausea / Vomiting 10 October 31, 2015 Discontinued Omeprazole 1 CAP ORAL DAILY November 01, 2015 Discontinued Lidocaine Hcl 10 ML MUCOUS MEM Q6H PRN For Abdominal Pain 200 November 01, 2015 Discontinued Amoxicillin 1000 MG ORAL TWICE A DAY 40 November 01, 2015 Discontinued Clarithromycin 500 MG ORAL TWICE A DAY 20 November 01, 2015 Discontinued Ondansetron Hcl 4 MG ORAL Q6H PRN For Nausea / Vomiting 10 October Discontinued Albuterol 2.5 MG ORAL DAILY January 20, 2016 Discontinued Cyclobenzaprine 10 MG ORAL THREE TIMES A DAY January 20, 2016 Discontinued Diltiazem Cd 120 MG ORAL DAILY January 20, 2016 Discontinued Morphine Ir 15 MG ORAL DAILY PRN For Pain January 20, 2016 Discontinued Prochlorperazine 10 MG ORAL THREE TIMES A DAY PRN For Nausea / Vomiting January 20, 2016 Discontinued Tamsulosin 0.4 MG ORAL DAILY January 20, 2016 Active Ondansetron Odt 4 MG TRANSLING Q6H PRN For Nausea / Vomiting January Discontinued Alfuzosin Hcl 10 MG ORAL DAILY April 04, 2016 Discontinued Gabapentin 1200 MG ORAL THREE TIMES A DAY April 04, 2016 Active Morphine Er 15 MG ORAL 5 TIMES DAILY April 04, 2016 Discontinued Multivitamin 1 TAB ORAL DAILY April 04, 2016 Discontinued Omeprazole 40 MG ORAL DAILY April 04, 2016 Discontinued Docusate Sodium 250mg Capsule 250 - 500 MG ORAL DAILY April 06, 2016 Discontinued Hydromorphone 2 MG ORAL EVERY 6 HOURS PRN For Severe Pain April Discontinued Morphine Er 30 MG ORAL THREE TIMES A DAY April 06, 2016 Discontinued Ondansetron Hcl 4 MG ORAL Q6H PRN For Nausea / Vomiting May 14, 2016 Discontinued Metoclopramide 10 MG ORAL BEFORE MEALS AND AT BEDTIME PRN For Nausea / Vomiting May 31, 2016 Discontinued Dabigatran Etexilate Mesylate 150 MG ORAL TWICE A DAY June 25, 2016 Active Ezetimibe 10 MG ORAL DAILY June 25, 2016 Active Nitroglycerin 0.4 MG ORAL Q5M PRN For Chest Pain June 25, 2016 Active Ondansetron Odt 4 MG TRANSLING Q6H PRN For Nausea / Vomiting 10 June 25, 2016 Discontinued Morphine Ir 15 MG ORAL THREE TIMES A DAY PRN For Breakthrough Pain July 01, 2016 Active Morphine Er 30 MG ORAL TWICE A DAY July 01, 2016 Active Sucralfate 1 GM ORAL BEFORE MEALS AND AT BEDTIME July 07, 2016 Discontinued Cyclobenzaprine 10 MG ORAL THREE TIMES A DAY PRN For NECK TIGHTNESS September 07, 2016 Active Acetaminophen 1000 MG ORAL BEFORE MEALS PRN For Pain September 21, 2016 Active Cholecalciferol (Vitamin D3) 2000 UNIT ORAL DAILY September 21, 2016 Active Metoprolol Tartrate 50 MG ORAL TWICE A DAY September 21, 2016 Active Multivitamin W/Minerals 1 TAB ORAL DAILY September 21, 2016 Active Ranitidine 150 MG ORAL TWICE A DAY September 21, 2016 Active Ondansetron Odt 4 MG TRANSLING FOUR TIMES DAILY PRN For Nausea / Vomiting September 21, 2016 Active Insulin Regular, Human 1 - 10 UNIT SUBCUTANEOUSLY .SLIDINGSCALE September 21, 2016 Active Insulin Glargine,Hum.Rec.Anlog 40 UNIT SUB-Q EVERY EVENING September 21, 2016 Active Promethazine 25 MG ORAL THREE TIMES A DAY PRN For Nausea / Vomiting September 21, 2016 Active Aspirin Chewable 81 MG ORAL DAILY September 22, 2016 Active Diltiazem Hcl 180 MG ORAL DAILY September 22, 2016 Discontinued Diltiazem Hcl 225 MG ORAL DAILY September 22, 2016 Active Encounters Encounter Facility Location Admit Date Discharge Date Attending Provider Departed Emergency [facility] Emergency Department September 22, 2016 10:07pm September 23, 2016 12:50am Discharged Inpatient [facility] Medical / Surgical September 21, 2016 9:25am September 22, 2016 9:58am Dez Fuller Departed Clinical [facility] Emergency Medical Services September 21, 2016 5:50am September 21, 2016 5:51am Louis Ramires Departed Clinical [facility] Emergency Medical Services September 16, 2016 5:24pm September 16, 2016 5:25pm Louis Ramires Departed Emergency [facility] Emergency Department September 16, 2016 1:25pm September 16, 2016 5:31pm Departed Emergency [facility] Emergency Department September 07, 2016 11:01am September 07, 2016 1:39pm Departed Emergency [facility] Emergency Department August 24, 2016 3:25pm August 24, 2016 6:26pm Departed Emergency [facility] Emergency Department August 18, 2016 11:40am August 18, 2016 5:00pm Departed Emergency [facility] Emergency Department July 22, 2016 4:59am July 22, 2016 10:33am Departed Emergency [facility] Emergency Department July 07, 2016 7:13am July 07, 2016 12:00pm Departed Emergency [facility] Emergency Department July 01, 2016 6:45pm July 01, 2016 9:34pm Departed Emergency [facility] Emergency Department June 29, 2016 6:09pm June 29, 2016 11:17pm Departed Emergency [facility] Emergency Department June 26, 2016 5:15pm June 26, 2016 9:29pm Departed Emergency [facility] Emergency Department June 25, 2016 7:27pm June 26, 2016 1:08am Departed Emergency [facility] Emergency Department June 25, 2016 4:39am June 25, 2016 8:11am Departed Emergency [facility] Emergency Department May 31, 2016 4:52pm May 31, 2016 9:30pm Departed Emergency [facility] Emergency Department May 31, 2016 6:55am May 31, 2016 9:25am Departed Emergency [facility] Emergency Department May 14, 2016 3:10pm May 14, 2016 6:03pm Departed [facility] Lab Reference (non patient) April 29, 2016 8:00am April 29, 2016 8:01am Nubia Perez Departed Physician/Provider Office Visit [facility] April 28, 2016 12:58pm April 28, 2016 12:59pm Nubia Perez Departed Clinical [facility] Lab [facility] April 28, 2016 9:01am April 28, 2016 11:59pm Nubia Perez Discharged Inpatient [facility] Medical / Surgical April 04, 2016 12:57am April 06, 2016 1:30pm Estee Garcia Departed Emergency [facility] Emergency Department February 8:57pm March 01, 2016 10:11pm Departed Physician/Provider Office Visit [facility] March 01, 2016 9:58am March 01, 2016 9:59am Nubia Perez Departed Emergency [facility] Emergency Department February 4:56pm February 29, 2016 7:43pm Discharged Inpatient [facility] Medical / Surgical January 11:35pm January 24, 2016 1:30pm Nubia Kingsley Departed Emergency [facility] Emergency Department January 11:50am January 22, 2016 3:01pm Departed Emergency [facility] Emergency Department January 11:45am January 20, 2016 2:45pm Encounter Diagnosis Onset Date Atrial fibrillation with rapid ventricular response Hyperglycemia Functional Status No known functional status. Immunizations No known immunizations. Payers Payer Name Policy Type Covered Alliance Party Covered Alliance Party Id Relationship Subscriber Subscriber Id Medicare A and B Medicare Primary RENA SHEPHERD [id number] Self / Same as Patient RENA MARQUEZRO [id number] Plan of Care No known plan of care. Social History Query Response Date Recorded Comment Cellular September 21, 2016 10:37am April 04, 2016 3:03am Name Dr Dunn September 21, 2016 9:52pm Relationship Spouse September 21, 2016 10:37am Support Person Involved in the patient's Instructed about Reviewed plan of care September 21, 2016 10:00am of prior suicidal attempt Yes June 29, 2016 6:26pm Vital Signs Vital Reading Result Reference Range Collection Date/Time Height 5 ft 10 in September 22, 2016 10:25pm Weight 78.471 kg September 22, 2016 10:25pm Temperature 98.4 F 97.7 F-99.5 F September 22, 2016 10:25pm Pulse 94 BPM 60-100 September 23, 2016 12:49am Respiration 22 RPM -September 23, 2016 12:49am Pulse Oximetry 99 % 92-100 September 23, 2016 12:49am Blood Pressure Systolic 116 90-130 September 23, 2016 12:49am Blood Pressure Diastolic 73 60-80 September 23, 2016 12:49am Body Mass Index 26.2 September 21, 2016 10:37am
[2017-02-07] MEDS ORDERED: PROC-4 PO (18:24)
[2017-02-07] MEDS ORDERED: OMEP40CA36 PO (18:24)
[2017-02-07] MEDS ORDERED: FLEC100T2 PO (18:24)
[2017-02-07] MEDS ORDERED: ALFU10TA11 PO (18:24)
== END 2016-09-17 18:41 | disposition home or self-care (01) ==
LOC: PCC 18:32 → INTOOBSV 18:32
PROVIDERS: ADMIT Urology; ATTEND Urology
DX: I48.0 Paroxysmal atrial fibrillation (principal); I47.2 Ventricular tachycardia; R11.2 Nausea with vomiting, unspecified; R19.7 Diarrhea, unspecified; J40 Bronchitis, not specified as acute or chronic; E11.65 Type 2 diabetes mellitus with hyperglycemia; I10 Essential (primary) hypertension; E78.00 Pure hypercholesterolemia, unspecified; G89.29 Other chronic pain; K21.9 Gastro-esophageal reflux disease without esophagitis; N40.0 Benign prostatic hyperplasia without lower urinary tract symptoms; F17.210 Nicotine dependence, cigarettes, uncomplicated; Z87.442 Personal history of urinary calculi; Z79.01 Long term (current) use of anticoagulants
CPT/HCPCS: 36415; 80048; 83735; 84100; 84439; 84443; 84484; 96365; 96366; 96375; 96376; G0378; G0379; J0456; J0696; J1815; J2270; J3490

== ENCOUNTER 2016-11-18 09:11 | Inpatient (IN) | payer OTHER ==
[2016-11-18] VITALS (10 sets, daily range): BP systolic 153–205; BP diastolic 93–118; PULSE 97–134; RESP 16–26; O2SAT 93–98
[~2016-11-18] VITALS: Ht 177.8 cm; Wt 80.3 kg
[~2016-11-18 09:11] MED LIST changes: -ALBU8.5H2 INHALATION; -ALFU10TA11 PO; -CHOL10008 PO; +DABI150C PO; +DILT-17 PO; -METO-272 PO; +METO50TA3 PO; +MORP30CA17 PO; -MULT-1018 PO; +NITR0.3T6 SL; -OMEP40CA36 PO; +ONDA-53 PO; -OXYC-474 PO; -WARF5TAB7 PO
--- NOTE | 2016-11-18 09:30 | ED.REPORT ---
HPI-Chest Pain 40 and Over Date of Service Nov 18, 2016 ED Provider: Arnold Hernandez DO A 51 year old male with a history of Afib, diabetes, dementia, HTN, heart murmur , nephrolithiasis, and chronic back pain presents to the ED via EMS complaining of heart palpitations onset this morning that were accompanied by tight chest pain that radiates into the patient's arms. Per EMS, the patient was in Afib en route and was given 6 mg of Adenosine, 12 mg of Adenosine, Fentanyl, and then a cardioversion. Associated symptoms include vomitingx6 and nausea onset 0200 today. He reports abdominal pain related to the vomiting and reports chills diaphoresis, and loose stool. He is unsure if he has had a fever. He denies any hematemesis, hematochezia, or dysuria. The patient normally takes morphine 5 times per day to treat his chronic back pain, but the vomit has prevented the patient from keeping any medication down, the patient trying to take morphine doses at 0600 and 0400 with no success. The patient reports that this current episode of Afib is better than his past one that he was hospitalized for on September 17. He reports no history of IL but does state that at the last episode of Afib, providers thought that he was going to have a IL afterwards. The patient denies eating any questionable food lately and reports that there are no sick people in his home. Nursing Notes Stated Complaint: RAPID HEART RATE Nursing Notes Reviewed: Yes Allergies: Coded Allergies: lisinopril (Verified Allergy, Unknown, 11/30/15) simvastatin (Verified Allergy, Unknown, 11/30/15) varenicline (Verified Allergy, Unknown, 11/30/15) Scheduled Cyclobenzaprine (Cyclobenzaprine) 10 Mg Tablet 10 MG PO TID Dabigatran Etexilate Mesylate (Pradaxa) 150 Mg Capsule 150 MG PO BID Diltiazem ER (Diltiazem ER) 120 Mg Cap.er.24h 120 MG PO DAILY Ezetimibe (Zetia) 10 Mg Tablet 10 MG PO BID Gabapentin (Gabapentin) 400 Mg Capsule 1,200 MG PO TID Insulin Glargine (Lantus U100 Solostar Insulin Pen) 100 Unit/1 Ml Insuln.pen 40 UNIT SUBQ HS Metoprolol Tartrate (Metoprolol Tartrate) 50 Mg Tablet 50 MG PO BID Morphine Sulfate ER (MS Contin) 15 Mg Tablet.er 15 MG PO 5XD Ranitidine (Ranitidine) 150 Mg Capsule 150 MG PO DAILY Tamsulosin (Flomax) 0.4 Mg Capsule 0.4 MG PO DAILY Scheduled PRN Albuterol HFA (Proair HFA) 8.5 Gm Hfa.aer.ad 2 PUFFS INHALATION Q4H PRN PRN For Shortness of Breath Nitroglycerin SL (Nitrostat) 0.4 Mg Tab.subl 0.4 MG SL Q5MIN PRN PRN For Chest Pain Ondansetron (Ondansetron) 4 Mg Tablet 4 MG PO QID PRN PRN For Nausea Oxycodone (Roxicodone) 5 Mg Tablet 10 MG PO QID PRN PRN For Pain General Time Seen by MD: 09:28 Chief Complaint Other (Heart palpitations. ) Hx Obtained From: Patient, EMS Arrived By: Ambulance Sudden in Onset?: Yes Onset Occurred: 1 - 4 hours ago Symptom Duration: Since onset Radiation: : Arm left: Arm right Severity: Current: Moderate Severity: Maximum: Moderate Recent Healthcare: Recent doctor visit (was hospitalized for Afib in September. ) Similar Sx Previous: Yes Past Medical History Past Medical History Chronic back pain. HX of Afib. Dr. Louis Wood is their doctor . Reports: Diabetes mellitus, Hypertension Past Surgical History Vasectomyx2 09/16/16 Smoking History Current Some Day Smoker Social History Other Social History: Good social support Ambulatory Status Independent Review of Systems Review of Systems Note: loose stool. Constitutional: Reports: Chills GI: Reports: Abdominal pain, Nausea, Vomiting, Denies: Hematemesis, Hematochezia Skin: Reports Diaphoresis Complete sys rev & neg: except as marked. Male: Denies Dysuria Physical Exam Initial Vital Signs Vital Signs (First) Date Time Temp Pulse Resp B/P Pulse Ox O2 Delivery O2 Flow Rate FiO2 11/18/16 09:36 36.2 134 20 192/106 97 11/18/16 13:12 Room Air Initial VS: Reviewed General/Constitutional: Awake, Alert Patient is in mild distress. Respiratory / Chest: Atraumatic, Breath sounds NL, Breath sounds = bilat, No respiratory distress Heart Rate / Rhythm: Positive: Tachycardia Patient is hypertensive. Abdomen: Soft, Non-tender Neck: Atraumatic, Full range of motion Back: Atraumatic, Full range of motion Lower Extremity / Pelvis / MS: Atraumatic, Full range of motion Skin: Warm, Dry Neurologic: Oriented X3, Speech NL Head / Eyes: Atraumatic, Normocephalic, PERRL, EOMI ENT: Atraumatic, Mucous membranes moist Upper Extremity / MS: Atraumatic, Full range of motion Wrist / Hand: Atraumatic, Full range of motion Ankle / Foot: Atraumatic, Full range of motion Interpretation & Diagnostics Interpretation & Diagnostics: Patient has Anion gap of 20. BLOOD GAS REPORT pH 7.421 pCO2 46 pO2 44.0 cHCO3 -(P) 29.4 cBase (B) 4.6 Lab Results Interpretation Result Diagram: 11/18/16 0955 11/18/16 0955 Test 11/18/16 09:55 11/18/16 11:15 White Blood Count 13.8th/mm3 (3.8-10.1) Red Blood Count 5.08mil/mm3 (4.40-5.80) Hemoglobin 14.2g/dL (13.8-17.2) Hematocrit 41.5% (41.0-50.0) Mean Corpuscular Volume 81.7fL (81-100) Mean Corpuscular Hemoglobin 28.0pg (27.0-35.0) Mean Corpuscular Hemoglobin Concent 34.2% (32.0-37.0) Red Cell Distribution Width 14.1% (12.3-15.4) Platelet Count 425bil/L (150-400) Neutrophils (%) (Auto) 84.6% (40-74) Lymphocytes (%) (Auto) 10.4% (14-46) Monocytes (%) (Auto) 4.5% (4-12) Eosinophils (%) (Auto) 0.1% (0-5) Basophils (%) (Auto) 0.2% (0-3) Sodium Level 133mEq/L (134-144) Potassium Level 3.4mEq/L (3.5-5.2) Chloride Level 90mEq/L (97-108) Carbon Dioxide Level 23mmol/L (18-29) Blood Urea Nitrogen 8mg/dL (6-24) Creatinine 0.56mg/dL (0.76-1.27) Estimat Glomerular Filtration Rate 162mL/min (>59) Glucose Level 401mg/dL (60-99) Calcium Level 9.5mg/dL (8.5-10.1) Magnesium Level 1.8mg/dL (1.6-2.6) Total Bilirubin 0.5mg/dL (0.0-1.2) Aspartate Amino Transf (AST/SGOT) 13U/L (0-50) Alanine Aminotransferase (ALT/SGPT) 12U/L (0-44) Alkaline Phosphatase 174U/L (25-150) Troponin T 0.010ug/L (0.0-0.011) Total Protein 8.3g/dL (6.4-8.4) Albumin 4.7g/dL (3.4-5.0) Lipase 9U/L (13-60) Ketones Negative (Negative) Hold Urine Received (Received) ECG Interpretation ECG Interpretation: Rate is 139. Sinus tachycardia. Time: 09:52 Interpreted by: ED physician X-Ray Chest Interpretation Chest Xray Interpretation: IMPRESSION: No acute cardiopulmonary disease process. Dictated by: Suri Holloway MD, PhD on 11/18/2016 at 10:55 Approved by: Suri Holloway MD, PhD on 11/18/2016 at 10:56 View: Portable, 1 view Interpretation / Wet Read by: Interpret - Radiologist CT Chest Interpretation PROCEDURE: CT ANG CHEST/ABD W/WO CONTRAST ([id number]) IMPRESSION: 1. No evidence of aortic dissection, nor aneurysm. 2. No acute process. 3. Small left pulmonary nodules; followup is recommended as below. 4. Moderate gastric distention. Fleischner Society criteria for SOLID lung nodule followup. Nodule size (mm)Low-risk patientHigh-risk patient<6 (single or multiple)No routine followup.Optional CT at 12 months. 6-8 (single or multiple)CT at 6-12 months, then optional CT at 18-24 mo.CT at 6-12 months, then CT at 18-24 months. >8 (single)CT, PET-CT, or biopsy at 3 months. Same as for low-risk pts. >8 (multiple)CT at 3-6 months, then optional CT at 18-24 mo.CT at 3-6 months, then CT at 18-24 months. Recommendations do not apply to lung cancer screening, patients with immunosuppression, or patients with known primary cancer. Dictated by: Farzana Gurrola M.D. on 11/18/2016 at 13:08 Approved by: Farzana Gurrola M.D. on 11/18/2016 at 13:11 Interpretation / Wet Read by: Interpret - Radiologist Re-Eval/Medical Decision Med Decision/Clinical Course Patient is hypertensive crisis, persistent vomiting, hypertension, no evidence of DKA, acute IL, aortic dissection, however unable to control this patient's vomiting with parenteral medications. Initially requiring multiple doses of parenteral medication to control his blood pressure. She also noted he was in rapid A. fib prior to arrival there he was cardioverted by paramedics in the ambulance and has remained in sinus tachycardia. Source of Hx: Old records, EMS Time of Eval: 11:19 Re-Evaluation/Progress Note: Rechecked patient. Time of Eval: 11:57 Re-Evaluation/Progress Note: Discussed patient case with Nurse. Time of Eval: 12:10 Re-Evaluation/Progress Note: Rechecked patient who has vomited again. Time of Eval: 12:56 Re-Evaluation/Progress Note: Rechecked the patient. Consultation : Referral / Consult Name: Marco Cabral MD Consulted With: Hospitalist Call Returned at: 13:48 Note: Discussed patient case with Dr. Cabral who accepts patient admit. Counseled Regarding: Diagnosis, Lab results, Need for admission Discharge & Departure Primary Impression: Vomiting Disposition: ADMITTED TO HOSPITAL Discharge Condition All VS Reviewed: Yes Condition: Improved Referrals: OTHER,PHYSICIAN (PCP) (Family) Crit Care Except Billable Proc Time Spent: 30-74 minutes Services Performed: Patient management by me, Time spent at bedside, Reviewing test results Critical Care Notes: See MDM Scribe Attestation Portions of this note were transcribed by Hermilo Dumont. I, Dr. Hernandez personally performed the history, physical exam and medical decision-making; I reviewed and confirmed the accuracy of the information in the transcribed note. Signed by: Loren Leyva, 11/18/2016 [id number]. copies to: OTHER,PHYSICIAN Arnold Hernandez DO Nov 18, 2016 09:30 Hermilo Dumont Nov 18, 2016 09:42
[2016-11-18] MEDS ORDERED: Promethazine Inj 25 MG in 0.9% Sodium Chloride 50 ML IV ONE (09:35)
[2016-11-18] MEDS ORDERED: HYDROmorphone 1 mg/mL Inj IVPUSH PRN (09:35)
[2016-11-18] MEDS ORDERED: 0.9% Sodium Chloride 1,000 ML IV ONE (09:35)
[2016-11-18 10:15] LABS: BASOPHILS % (AUTO) 0.2 % (0-3); EOSINOPHILS % (AUTO) 0.1 % (0-5); MONOCYTES % (AUTO) 4.5 % (4-12); Mean Corpuscular Volume 81.7 fL (81-100); NEUTROPHILS % (AUTO) 84.6 % (40-74); Platelet Count 425 bil/L (150-400)
[2016-11-18 10:30] LABS: Magnesium 1.8 mg/dL (1.6-2.6)
[2016-11-18] MEDS ORDERED: Diltiazem CD 120 mg ER24 Capsule PO ONE (10:30)
[2016-11-18] MEDS ORDERED: Dabigatran 150 mg Capsule PO ONE (10:30)
--- NOTE | 2016-11-18 10:51 | ABG ---
DateTimeAnalyzed 10:47:00 -_ pH ____7.421 - pCO2 ___46.0__ -mmHg pO2 ___44.0__ -mmHg HCO3- ___29.4__ -mmol/L ABE ____4.6__ -mmol/L tHb ___14.0__ -g/dL O2Hb ___76.8__ -% COHb ____2.9__ -% MetHb ____1.1__ -% sO2 ___80.0__ -% FIO2 ___21.0__ -% Drawn By lab - Date/Time Notified____ 10:50:00 -_ Notified By cf - Notified Whom ___Dr. O'gisela - B 756 -mmHg tO2 ___15.1__ -Vol% Marco test N/A -
--- NOTE | 2016-11-18 10:57 | DRSVH ---
PROCEDURE: X-RAY CHEST ONE VIEW, PORTABLE ([id number]) INDICATIONS: rapid afib TECHNIQUE: One view of the chest was acquired. COMPARISON: [facility], LEDA, CHEST 1 VIEW, 05/14/2015, 20:23. [facility], CR, XR GENE ST 2VW, 12/22/2015, 11:15. FINDINGS: Surgical changes and devices: None. Lungs and pleura: No pleural effusions or pneumothorax. Lungs are clear. Mediastinum: Mediastinal contours appear normal. Heart size is normal. Bones and chest wall: No suspicious bony lesions. Overlying soft tissues appear unremarkable. IMPRESSION: No acute cardiopulmonary disease process. Dictated by: Suri Holloway MD, PhD on 11/18/2016 at 10:55 Approved by: Suri Holloway MD, PhD on 11/18/2016 at 10:56
[2016-11-18] MEDS ORDERED: Ondansetron 2 mg/mL 2 mL Inj IVPUSH PRN ×2 (11:00→13:50)
[2016-11-18] MEDS ORDERED: Labetalol 5 mg/mL 4 mL Inj IVPUSH ONE ×3 (11:20→12:55)
[2016-11-18] MEDS ORDERED: 0.9% Sodium Chloride 1,000 ML IV SCH (11:40)
[2016-11-18] MEDS ORDERED: Insulin Human REGular-Omnicell 100 Unit/mL SUBQ ONE (12:00)
[2016-11-18] MEDS: MeTOProlol 1 mg/mL 5 mL Inj IVPUSH SCH ×2 (12:06→15:47)
--- NOTE | 2016-11-18 13:13 | DRSVH ---
PROCEDURE: CT ANG CHEST/ABD W/WO CONTRAST ([id number]) INDICATIONS: hypertension, chest pain, back pain TECHNIQUE: Precontrast 5 mm thick sections acquired from the lung apices to the iliac crests. After the adminis tration of intravenous contrast, 3 mm thick sections again acquired from the lung apices to the iliac crests. 3-dimensional maximum intensity projection (MIP) oblique sagittal and coronal reformats wer e then acquired, and/or 3-dimensional volume rendering reformats. For radiation dose reduction, the following was used: automated exposure control. COMPARISON: None. FINDINGS: Image quality: Excellent. AORTA: The thoracoabdominal aorta is widely patent, with no evidence of aneurysm, dissection, or loyda nosis. Mild plaque within the infrarenal abdominal aorta is present. CHEST: Lungs and pleura: No acute airspace opacities. 3 mm diameter subpleural nodule within the left uppe r lobe posteriorly. Subpleural nodule within the left upper lobe posteriorly adjacent to the major fi ssure is present measuring 4 mm. No pleural effusions or pneumothorax. Central and peripheral airway s are patent and normal in caliber. Mediastinum: Heart size is normal. No pericardial effusion. No mediastinal or hilar adenopathy by size criteria. Central pulmonary arteries are normal in size. Esophagus is normal in caliber. No h iatal hernias. Bones and chest wall: No axillary adenopathy by size criteria. Thyroid gland is grossly unremarkabl e. No suspicious bony lesions. No vertebral body compression fractures. ABDOMEN: Vasculature: Celiac trunk and mesenteric arteries are patent. Renal arteries are also patent. Solid organs: Liver and spleen are normal in size. Gallbladder is grossly unremarkable. Biliary sy stem is non dilated. Pancreas enhances normally. No adrenal nodules. Both kidneys are normal in si ze and enhancement, without hydronephrosis. Peritoneum and bowel: No free fluid or air. Moderate gastric distention is present. Bowel loops are otherwise normal in caliber and wall thickness. Visualized portions of the appendix are normal. Nodes and vessels: No retroperitoneal or mesenteric adenopathy by size criteria. Inferior vena cava is normal in morphology. Bones: No suspicious bony lesions. No vertebral body compression fractures. Miscellaneous: No ventral hernias. IMPRESSION: 1. No evidence of aortic dissection, nor aneurysm. 2. No acute process. 3. Small left pulmonary nodules; followup is recommended as below. 4. Moderate gastric distention. Fleischner Society criteria for SOLID lung nodule followup. Nodule size (mm)Low-risk patientHigh-risk patient<6 (single or multiple)No routine followup.Optional CT at 12 months. 6-8 (single or multiple)CT at 6-12 months, then optional CT at 18-24 mo.CT at 6-12 m onths, then CT at 18-24 months. >8 (single)CT, PET-CT, or biopsy at 3 months. Same as for low-risk p ts. >8 (multiple)CT at 3-6 months, then optional CT at 18-24 mo.CT at 3-6 months, then CT at 18-24 m onths. Recommendations do not apply to lung cancer screening, patients with immunosuppression, or patients w ith known primary cancer. Dictated by: Farzana Gurrola M.D. on 11/18/2016 at 13:08 Approved by: Farzana Gurrola M.D. on 11/18/2016 at 13:11
[2016-11-18] MEDS ORDERED: ProchlorPERazine 5 mg/mL 2 mL Inj IVPUSH ONE ×2 (13:30→13:40)
[2016-11-18] MEDS ORDERED: NITR0.4T SL (13:44)
[2016-11-18] MEDS ORDERED: ALBU8.5H2 INHALATION (13:44)
[2016-11-18] MEDS ORDERED: MS15TCR PO (13:44)
[2016-11-18] MEDS ORDERED: INSU100I13 SUBQ (13:44)
[2016-11-18] MEDS ORDERED: OXYC-474 PO (13:44)
[2016-11-18] MEDS ORDERED: Alum-Mag Hydrox-Simeth 30 mL Suspension PO PRN (13:50)
[2016-11-18] MEDS: 0.9% Sodium Chloride 1,000 ML IV SCH ×4 (15:56→23:56)
[2016-11-18] MEDS ORDERED: Glucose 40% Oral Gel 15 Gm Tube PO PRN (16:00)
[2016-11-18] MEDS ORDERED: Polyethylene Glycol (PEG) 17 Gm Powder PO PRN (16:00)
[2016-11-18] MEDS ORDERED: Potassium Phos (mEq) Inj 40 MEQ in Dextrose 5% 500 ML IV ONE (16:30)
--- NOTE | 2016-11-18 17:15 | PCM.HPMED ---
Subjective Date of Service Nov 18, 2016 Primary Provider: Admitting Physician: Marco Cabral MD Primary Care Physician: Nopcp Attending Physician: Marco Cabral MD Admit Status: From the Emergency Department, Full Admit, Admit to [facility] Team, [facility] Telemetry Chief Complaint: Nausea, vomiting and diarrhea. Hyperglycemia, hypertensive crisis, and atrial fibrillation with RVR History of Present Illness: This is a 51-year-old patient with a history of diabetes mellitus, hypertension , chronic pain syndrome. He was doing well until last night when he developed acute nausea vomiting diarrhea. He had multiple episodes of both diarrhea and vomiting. No blood per rectum or hematemesis. He has some abdominal cramping. He did take his insulin and pain medications yesterday. This morning he had persistent symptoms and felt weak. He was brought to the ER he is found to be volume depleted and had a sinus tachycardia. The patient has a history of hypertension thought to have systolic blood pressures over 200 in the ER. He was given multiple doses of a bagel all up to a total of 60 mg with only transient improvement. He also was found to be in sinus tachycardia. There is concern about atrial fibrillation he was given multiple doses of adenosine with no change in rhythm. The patient was then bolused with 3 L of saline. He did have hyperglycemia with a blood glucose in the 400s upon arrival. He was given a small dose of 5 units of regular insulin in this with fluids improved the sugar to about 200. The patient is complaining of acute and chronic lumbar pain and has not had his pain medications since yesterday. He takes morphine long-acting 15 mg 5 times a day and oxycodone short acting 10 mg twice a day when necessary breakthrough pain. Pulses ill at home or work with nausea vomiting diarrhea. Review of Systems: He denies recent visual changes or hearing loss. No rhinorrhea cough or sore throat. No dyspnea. No active rash or lesions difficulty urinating. He does feel globally weak. Some abdominal cramping. No chest pain or palpitations. All else is reviewed and otherwise negative except as noted in history of present illness. Allergies Coded Allergies: lisinopril (Verified Allergy, Unknown, 11/30/15) simvastatin (Verified Allergy, Unknown, 11/30/15) varenicline (Verified Allergy, Unknown, 11/30/15) Home Medications Cyclobenzaprine (Cyclobenzaprine) 10 Mg Tablet 10 MG PO TID Dabigatran Etexilate Mesylate (Pradaxa) 150 Mg Capsule 150 MG PO BID Diltiazem ER (Diltiazem ER) 120 Mg Cap.er.24h 120 MG PO DAILY Ezetimibe (Zetia) 10 Mg Tablet 10 MG PO BID Gabapentin (Gabapentin) 400 Mg Capsule 1,200 MG PO TID Insulin Glargine (Lantus U100 Solostar Insulin Pen) 100 Unit/1 Ml Insuln.pen 40 UNIT SUBQ HS Metoprolol Tartrate (Metoprolol Tartrate) 50 Mg Tablet 50 MG PO BID Morphine Sulfate ER (MS Contin) 15 Mg Tablet.er 15 MG PO 5XD Ranitidine (Ranitidine) 150 Mg Capsule 150 MG PO DAILY Tamsulosin (Flomax) 0.4 Mg Capsule 0.4 MG PO DAILY Scheduled PRN Albuterol HFA (Proair HFA) 8.5 Gm Hfa.aer.ad 2 PUFFS INHALATION Q4H PRN PRN For Shortness of Breath Nitroglycerin SL (Nitrostat) 0.4 Mg Tab.subl 0.4 MG SL Q5MIN PRN PRN For Chest Pain Ondansetron (Ondansetron) 4 Mg Tablet 4 MG PO QID PRN PRN For Nausea Oxycodone (Roxicodone) 5 Mg Tablet 10 MG PO QID PRN PRN For Pain PMH 1. Essential hypertension 2. DM 2 3. Chronic lumbar pain 4. Continuous opiate dependence 5. Chronic atrial fibrillation. Surgical History vasectomy Family History grandmother with DM Social History Hx Alcohol Use: No Hx Substance Use: No Smoking Status: Current Every Day Smoker Living Arrangement: with Family Exam Vital Signs Vital Sign - Last Date Time Temp Pulse Resp B/P Pulse Ox O2 Delivery O2 Flow Rate FiO2 11/18/16 16:12 97 181/117 11/18/16 15:45 20 93 Room Air 11/18/16 15:30 36.4 Exam Alert and oriented , no distress, fluent speech. No distress. Normal skull. Normal external nose and ears. Anicteric sclerae, symmetric pupils. Her affect is unremarkable except dry mucosa. No facial droop. Neck is supple, normal thyroid, no adenopathy. Lungs are clear with normal effort and rate. Heart is tachycardic and regular without murmur gallop or rub Abdomen is nondistended and nontender with hypoactive bowel tones. Extremities are free of edema and good pedal and radial pulses. Skin is free of rash, lesions, ecchymosis. Joints are not swollen or deformed. Muscle tone and strength. Cranial nerves are grossly intact. Lab and Diagnostics Result Diagram: 11/18/1695411/[id number]/16954 X-Rays, CTs and MRIs CT Chest and Abdomen: 1. No evidence of aortic dissection, nor aneurysm. 2. No acute process. 3. Small left pulmonary nodules; followup is recommended as below. 4. Moderate gastric distention. Fleischner Society criteria for SOLID lung nodule followup. Nodule size (mm)Low-risk patientHigh-risk patient<6 (single or multiple)No routine followup.Optional CT at 12 months. 6-8 (single or multiple)CT at 6-12 months, then optional CT at 18-24 mo.CT at 6-12 months, then CT at 18-24 months. >8 (single)CT, PET-CT, or biopsy at 3 months. Same as for low-risk pts. >8 (multiple)CT at 3-6 months, then optional CT at 18-24 mo.CT at 3-6 months, then CT at 18-24 months. Recommendations do not apply to lung cancer screening, patients with immunosuppression, or patients with known primary cancer. CXR clear 12-lead ECG sinus tachycardia Additional Diagnostics: pH ____7.421 - pCO2 ___46.0__ -mmHg pO2 ___44.0__ -mmHg HCO3- ___29.4__ -mmol/L ABE ____4.6__ -mmol/L tHb ___14.0__ -g/dL O2Hb ___76.8__ -% COHb ____2.9__ -% MetHb ____1.1__ -% sO2 ___80.0__ -% FIO2 ___21.0__ -% Drawn By lab - Date/Time Notified____ 10:50:00 -_ Notified By cf - Notified Whom ___DrCarlos Ortiz - B 756 -mmHg tO2 ___15.1__ -Vol% Marco test N/A - Assessment & Plan 1. Nausea and diarrhea, POA. Possible gastroenteritis. Stool PCR> 2. Volume depletion with sinus tachycardia, POA. IVF repletion. 3. Lactic acidosis, POA. IVF as above. 4. DM with hyperglycemia, POA. SQ insulin (lantus and lispro) as well as IVF. No ketones. 5. Hypertensiove crisis, POA. hydralazine as needed. Metoprolol IV as needed. 6. Continuous opiate dependence, chronic lumbar pain, POA. Dilaudid IV prn pain. Full code. Inpatient status with LOS of 2 nights. Pain Evaluation: Pain not Controlled Resuscitation Status: CPR: Attempt Resuscitation Time spent 40 minutes Marco Cabral MD Nov 18, 2016 17:15
[2016-11-18] MEDS: Heparin 5,000 Unit/mL Inj SUBQ SCH (17:22)
[2016-11-18] MEDS: Ondansetron 2 mg/mL 2 mL Inj IVPUSH PRN ×2 (17:31→21:20)
--- NOTE | 2016-11-18 18:13 | NUR ---
Admit note Patient admitted from [facility] ER via michael, a/o x 3, c/o back spasm pain 04/13, IV Dilaudid given x 1. See vitals SBP 200's DBP 110's. IV Metoprolol x 1 given, SBP 150's DBP 80's post meds. Tele SR-ST 90-110's. Patient oriented to call light, phone, tv and bathroom. Up indep in room steady gait.
[2016-11-18] MEDS: Insulin LISPRO 300 Unit/3 mL Inj SUBQ SCH ×2 (18:31→21:22)
[2016-11-18] MEDS: hydrALAZINE 20 mg/mL Inj IV PRN (21:16)
[2016-11-18] MEDS: HYDROmorphone 1 mg/mL Inj IVPUSH PRN ×3 (21:16→23:48)
[2016-11-18] MEDS: Insulin GLARgine 100 Unit/mL Syringe SUBQ SCH (21:21)
[2016-11-18] MEDS: MeTOProlol 1 mg/mL 5 mL Inj IVPUSH PRN (23:48)
[2016-11-19] VITALS (10 sets, daily range): BP systolic 141–183; BP diastolic 91–110; PULSE 94–132; RESP 16–24; O2SAT 94–99
[2016-11-19] MEDS: 0.9% Sodium Chloride 1,000 ML IV SCH ×9 (01:12→23:56)
[2016-11-19] MEDS: Heparin 5,000 Unit/mL Inj SUBQ SCH ×3 (01:13→16:24)
[2016-11-19] MEDS: HYDROmorphone 1 mg/mL Inj IVPUSH PRN ×10 (03:20→23:28)
[2016-11-19] MEDS: Ondansetron 2 mg/mL 2 mL Inj IVPUSH PRN ×5 (03:20→20:59)
[2016-11-19 04:34] LABS: BASOPHILS % (AUTO) 0.1 % (0-3); EOSINOPHILS % (AUTO) 0.3 % (0-5); MONOCYTES % (AUTO) 7.3 % (4-12); Mean Corpuscular Hemoglobin 28.2 pg (27.0-35.0); Mean Corpuscular Volume 81.6 fL (81-100); NEUTROPHILS % (AUTO) 75.4 % (40-74); Platelet Count 427 bil/L (150-400)
--- NOTE | 2016-11-19 04:54 | NUR ---
Pain/BP Patient reporting back pain up to 8/10 on pain scale. Improves to 6/10 with 1 mg IV push dilauded. Patient states that he feels there is a significant improvement with the dilauded. BP continues to be elevated with systolic pressures in the 170s and 180s; IV hydralazine and IV metoprolol given with improvement to SBP of 155. Continue to monitor.
[2016-11-19] MEDS: hydrALAZINE 20 mg/mL Inj IV PRN (07:29)
[2016-11-19] MEDS ORDERED: Albuterol HFA 60 Puff 8 Gm Inhaler INHALATION PRN (08:40)
[2016-11-19] MEDS ORDERED: Insulin GLARgine 100 Unit/mL Syringe SUBQ ONE (08:40)
--- NOTE | 2016-11-19 08:43 | PCM.PNMED ---
Subjective Date of Service Nov 19, 2016 Subjective He is doing a little bit better. Less nausea. No vomiting or diarrhea since being admitted. He has some having some abdominal cramping. He is having a fair amount of acute and chronic lumbar pain. His headache is gone. His blood pressure is still high. No chest pain. No dyspnea. Exam Vital Signs Vital Sign - Last Date Time Temp Pulse Resp B/P Pulse Ox O2 Delivery O2 Flow Rate FiO2 11/19/16 08:34 130 11/19/16 07:23 36.9 18 183/107 98 Room Air Intake and Output 11/18/16 11/18/16 11/19/16 Cumulative From/Thru 15:00 23:00 07:00 11/18/16 09:36 - 11/19/16 05:41 Intake Total 60 ml 4656 ml 1948 ml 6664 ml Output Total 1655 ml 2155 ml 700 ml 4510 ml Balance -1595 ml 2501 ml 1248 ml 2154 ml Intake Oral 60 ml 460 ml 400 ml 920 ml IV Total 4196 ml 1548 ml 5744 ml Output Urine Total 1655 ml 2155 ml 700 ml 4510 ml # Voids 4 4 8 Exam Regards 3, no distress Anicteric sclera Neck supple Lungs are clear with normal effort and right. Heart is regular without murmur. Abdomen is somewhat tender with normal active bowel tones. Extremities are free of edema with good pedal and radial pulses. IVs and Medications Medications Reviewed: Medications were reviewed in detail Lab and Diagnostics Result Diagram: 11/19/16 0415 11/19/16 0415 X-Rays, CTs and MRIs CT Chest and Abdomen: 1. No evidence of aortic dissection, nor aneurysm. 2. No acute process. 3. Small left pulmonary nodules; followup is recommended as below. 4. Moderate gastric distention. Fleischner Society criteria for SOLID lung nodule followup. Nodule size (mm)Low-risk patientHigh-risk patient<6 (single or multiple)No routine followup.Optional CT at 12 months. 6-8 (single or multiple)CT at 6-12 months, then optional CT at 18-24 mo.CT at 6-12 months, then CT at 18-24 months. >8 (single)CT, PET-CT, or biopsy at 3 months. Same as for low-risk pts. >8 (multiple)CT at 3-6 months, then optional CT at 18-24 mo.CT at 3-6 months, then CT at 18-24 months. Recommendations do not apply to lung cancer screening, patients with immunosuppression, or patients with known primary cancer. CXR clear 12-lead ECG sinus tachycardia Additional Diagnostics pH ____7.421 - pCO2 ___46.0__ -mmHg pO2 ___44.0__ -mmHg HCO3- ___29.4__ -mmol/L ABE ____4.6__ -mmol/L tHb ___14.0__ -g/dL O2Hb ___76.8__ -% COHb ____2.9__ -% MetHb ____1.1__ -% sO2 ___80.0__ -% FIO2 ___21.0__ -% Drawn By lab - Date/Time Notified____ 10:50:00 -_ Notified By cf - Notified Whom ___Dr. Ortiz - B 756 -mmHg tO2 ___15.1__ -Vol% Marco test N/A - Assessment & Plan 1. Nausea and diarrhea, POA. Possible gastroenteritis. Stool PCR is pending as he is no diarrhea since admission. We will continue to treat him symptomatically and start his oral medications. 2. Volume depletion with sinus tachycardia, POA. IVF repletion. This is improved. Will continue IV fluids today. 3. Lactic acidosis, POA. IVF as above. Continue IV fluids and check lactic acid this morning. There is no clear source of infection was likely is related to volume depletion. 4. DM with hyperglycemia, POA. SQ insulin (lantus and lispro) as well as IVF. His blood sugars are still slightly high in the 250 range. Will add an additional dose of glargine 20 this morning. Continue IV fluids. . 5. Hypertensiove crisis, POA. hydralazine as needed. Metoprolol IV as needed. Well add back in his chronic medications metoprolol 50 twice a day diltiazem CD 240 Surgeon this morning. 6. Continuous opiate dependence, chronic lumbar pain, POA. Dilaudid IV prn pain. We will increase Dilaudid 2-2 mg every 2 for his continuous opiate dependence and tolerance as well as poor pain control and reinstitute his oral medications today. Full code. Inpatient status with LOS of 2 nights. Resuscitation Status: CPR: Attempt Resuscitation Time spent 30 minutes Marco Cabral MD Nov 19, 2016 08:43
[2016-11-19] MEDS: MeTOProlol 1 mg/mL 5 mL Inj IVPUSH PRN ×2 (08:44→16:24)
[2016-11-19] MEDS ORDERED: Albuterol 2.5 mg/3 mL Inhalation Solution NEB SCH (08:50)
[2016-11-19] MEDS: Insulin LISPRO 300 Unit/3 mL Inj SUBQ SCH ×4 (08:50→21:54)
[2016-11-19] MEDS ORDERED: Albuterol 2.5 mg/3 mL Inhalation Solution NEB PRN (08:50)
[2016-11-19] MEDS: Morphine ER 15 mg (MS Contin) Tablet PO SCH ×4 (10:00→22:00)
[2016-11-19] MEDS: MetoCLOpramide 5 mg/mL 2 mL Inj IVPUSH PRN ×2 (11:38→17:41)
[2016-11-19] MEDS: Dabigatran 150 mg Capsule PO SCH ×2 (14:15→20:30)
--- NOTE | 2016-11-19 15:46 | NUR ---
Social Work Note: Screen Note Data& Assessment: EMR reviewed. Patient is a 51y/o male admitted on 11/18/16 for Hypertension and Persistent vomiting. Pt has [employer] for insurance coverage and goes to [place] for primary care. Pt lives in [place] with family and is independent at baseline. Pt is currently independent in room. No discharge needs identified at this time. SW to continue to follow if any needs arise. Plan: Anticipated discharge home via POV when medically ready. No discharge needs identified at this time. SW to continue to follow if any needs arise. Jaclyn Moreira LMSW, ACM
[2016-11-19] MEDS: Diltiazem CD 120 mg ER24 Capsule PO SCH (16:38)
--- NOTE | 2016-11-19 17:05 | NUR ---
Pain/Vitals Patient a/o x 4, c/o nausea and back spasms 8/10, meds given with min effect, MD notified and new orders recieved. Pain improved with increase pain dosage to 5-6/10. patient cont to have nausea no emesis, taking min fluid intake and able to keep a few po meds down. See vitals, tele ST 110-130's, IV Metoprolol given x 2. Patient showered with assist of . Will cont poc.
[2016-11-19] MEDS: Insulin GLARgine 100 Unit/mL Syringe SUBQ SCH (21:54)
[2016-11-20] VITALS (10 sets, daily range): BP systolic 110–151; BP diastolic 76–102; PULSE 72–174; RESP 15–16; O2SAT 97–100
[2016-11-20] MEDS: Heparin 5,000 Unit/mL Inj SUBQ SCH ×2 (01:44→07:27)
[2016-11-20] MEDS: HYDROmorphone 1 mg/mL Inj IVPUSH PRN ×4 (01:45→12:15)
[2016-11-20] MEDS: MetoCLOpramide 5 mg/mL 2 mL Inj IVPUSH PRN (01:45)
[2016-11-20] MEDS: MeTOProlol 1 mg/mL 5 mL Inj IVPUSH PRN ×2 (02:08→02:36)
--- NOTE | 2016-11-20 02:11 | NUR ---
A-fib Patient up to bathroom at 0205; per quality assurance monitor, heart rate increased into the 170s and sustaining. Patient denies chest discomfort or shortness of breath, but admits feeling heart racing. IV metoprolol 5mg given; heart rate down to 130s. geotechnical engineer states patient now in A-fib. Continue close monitoring. Addendum: 11/20/16 at 0225 by TANG AUSTIN RN Night hospitalist isidoro.
[2016-11-20] MEDS ORDERED: MeTOProlol 1 mg/mL 5 mL Inj IV ONE (02:50)
[2016-11-20] MEDS: 0.9% Sodium Chloride 1,000 ML IV SCH ×4 (03:56→11:56)
--- NOTE | 2016-11-20 04:43 | NUR ---
Conversion to Sinus Rhythm Patient converted to sinus rhythm at 0437. Rates in the 80s-90s. Continue to monitor.
[2016-11-20] MEDS: Morphine ER 15 mg (MS Contin) Tablet PO SCH ×3 (06:00→14:21)
[2016-11-20] MEDS: Ondansetron 2 mg/mL 2 mL Inj IVPUSH PRN (07:24)
[2016-11-20] MEDS: Insulin LISPRO 300 Unit/3 mL Inj SUBQ SCH ×2 (07:39→12:19)
--- NOTE | 2016-11-20 09:29 | PCM.PNMED ---
Subjective Date of Service Nov 20, 2016 Subjective he has felt a lot better after fluid repletion. No bowel movement since arrival. No abdominal pain. Less nausea. His lower back is having a lot of pain from the hospital bed. No difficulties with urination, fevers or chills. No cough. Exam Vital Signs Vital Sign - Last Date Time Temp Pulse Resp B/P Pulse Ox O2 Delivery O2 Flow Rate FiO2 11/20/16 07:22 36.5 90 16 136/76 99 Room Air Intake and Output 11/19/16 11/19/16 11/20/16 Cumulative From/Thru 15:00 23:00 07:00 11/18/16 09:36 - 11/20/16 05:59 Intake Total 1500 ml 1520 ml 9684 ml Output Total 850 ml 1225 ml 6585 ml Balance 650 ml 295 ml 3099 ml Intake Oral 300 ml 350 ml 1570 ml IV Total 1200 ml 1170 ml 8114 ml Output Urine Total 850 ml 1225 ml 6585 ml # Voids 8 # Bowel Movements 0 0 Exam Alert and oriented 3, no distress. Anicteric sclera. Neck supple. Lungs are clear with normal effort rate. Heart is regular without murmur gallop or rub. Abdomen soft nontender. Extremities are free of edema edema. Good Pedal pulses IVs and Medications Medications Reviewed: Medications were reviewed in detail Lab and Diagnostics Result Diagram: 11/19/1641411/19/16414 X-Rays, CTs and MRIs CT Chest and Abdomen: 1. No evidence of aortic dissection, nor aneurysm. 2. No acute process. 3. Small left pulmonary nodules; followup is recommended as below. 4. Moderate gastric distention. Fleischner Society criteria for SOLID lung nodule followup. Nodule size (mm)Low-risk patientHigh-risk patient<6 (single or multiple)No routine followup.Optional CT at 12 months. 6-8 (single or multiple)CT at 6-12 months, then optional CT at 18-24 mo.CT at 6-12 months, then CT at 18-24 months. >8 (single)CT, PET-CT, or biopsy at 3 months. Same as for low-risk pts. >8 (multiple)CT at 3-6 months, then optional CT at 18-24 mo.CT at 3-6 months, then CT at 18-24 months. Recommendations do not apply to lung cancer screening, patients with immunosuppression, or patients with known primary cancer. CXR clear 12-lead ECG sinus tachycardia Additional Diagnostics pH ____7.421 - pCO2 ___46.0__ -mmHg pO2 ___44.0__ -mmHg HCO3- ___29.4__ -mmol/L ABE ____4.6__ -mmol/L tHb ___14.0__ -g/dL O2Hb ___76.8__ -% COHb ____2.9__ -% MetHb ____1.1__ -% sO2 ___80.0__ -% FIO2 ___21.0__ -% Drawn By lab - Date/Time Notified____ 10:50:00 -_ Notified By cf - Notified Whom ___Dr. Ortiz - B 756 -mmHg tO2 ___15.1__ -Vol% Marco test N/A - Assessment & Plan 1. Nausea and diarrhea, POA. Possible gastroenteritis. Stool PCR is pending as he is no diarrhea since admission. We will continue to treat him symptomatically and start his oral medications. His symptoms are improved. No stool for sample at this point. We will try a suppository this morning. 2. Volume depletion with sinus tachycardia, POA. IVF repletion. This is resolved. 3. Lactic acidosis, POA. IVF as above. This is resolved with IV fluids. 4. DM with hyperglycemia, POA. SQ insulin (lantus and lispro) as well as IVF. His blood sugars are still slightly high in the 250 range. Will add an additional dose of glargine 20 this morning. Continue IV fluids. . This is improved 5. Hypertensiove crisis, POA. hydralazine as needed. Metoprolol IV as needed. Well add back in his chronic medications metoprolol 50 twice a day diltiazem CD 240 This is improved 6. Continuous opiate dependence, chronic lumbar pain, POA. Dilaudid IV prn pain. We will increase Dilaudid 2-2 mg every 2 for his continuous opiate dependence and tolerance as well as poor pain control and reinstitute his oral medications today. He will try to resume his oral MS today. Full code. Inpatient status with LOS of 2 nights. Pain Evaluation: Adequate Pain Control Resuscitation Status: CPR: Attempt Resuscitation Time spent 30 minute Marco Cabral MD Nov 20, 2016 09:29
[2016-11-20 09:38] LABS: Mean Corpuscular Hemoglobin 27.8 pg (27.0-35.0); Mean Corpuscular Volume 83.3 fL (81-100)
[2016-11-20] MEDS: Dabigatran 150 mg Capsule PO SCH (09:45)
[2016-11-20] MEDS: Diltiazem CD 120 mg ER24 Capsule PO SCH (09:45)
--- NOTE | 2016-11-20 14:40 | PCM.DIMED ---
Discharge Instructions Date of Service Nov 20, 2016 Dates of Hospitalization Nov 18, 2016 at 13:58 Discharge Diagnosis Discharge Diagnosis 1. Nausea and diarrhea, POA. Possible gastroenteritis. Improved. 2. Volume depletion, POA.Improved. 3. Lactic acidosis, POA.. Resolved. 4. DM with hyperglycemia, POA. Improved. 5. Hypertensive crisis, POA. Improved. 6. Continuous opiate dependence, chronic lumbar pain, POA. 7. Mild opiate withdrawal syndrome. POA 8. PSVT, resolved. 9. PAF, on Pradaxa. POA Diet No restrictions Activity No restrictions Call your provider Shortness of breath, Chest pain Patient Instructions Follow-up with PCP in: 1 week Marco Cabral MD Nov 20, 2016 14:40
[2016-11-20] MEDS ORDERED: METO5TAB78 PO (14:41)
--- NOTE | 2016-11-20 14:45 | PCM.DC.MED ---
Discharge Summary Date of Service Nov 20, 2016 Dates of Hospitalization Date of Hospital Admission Nov 18, 2016 at 13:58 Date of Discharge: Nov 20, 2016 Providers: Admitting Physician: Felicita Cabral MD Primary Care Physician: Noplarry Attending Physician: Felicita Cabral MD Diagnosis at Time of Discharge Diagnosis at Time of Discharge 1. Nausea and diarrhea, POA. Possible gastroenteritis. Improved. 2. Volume depletion, POA.Improved. 3. Lactic acidosis, POA.. Resolved. 4. DM with hyperglycemia, POA. Improved. 5. Hypertensive crisis, POA. Improved. 6. Continuous opiate dependence, chronic lumbar pain, POA. 7. Mild opiate withdrawal syndrome. POA 8. PSVT, resolved. 9. PAF, on Pradaxa. POA Consultations None Procedures XRay, CTs & MRIs CT Chest and Abdomen: 1. No evidence of aortic dissection, nor aneurysm. 2. No acute process. 3. Small left pulmonary nodules; followup is recommended as below. 4. Moderate gastric distention. Fleischner Society criteria for SOLID lung nodule followup. Nodule size (mm)Low-risk patientHigh-risk patient<6 (single or multiple)No routine followup.Optional CT at 12 months. 6-8 (single or multiple)CT at 6-12 months, then optional CT at 18-24 mo.CT at 6-12 months, then CT at 18-24 months. >8 (single)CT, PET-CT, or biopsy at 3 months. Same as for low-risk pts. >8 (multiple)CT at 3-6 months, then optional CT at 18-24 mo.CT at 3-6 months, then CT at 18-24 months. Recommendations do not apply to lung cancer screening, patients with immunosuppression, or patients with known primary cancer. CXR clear ECG 12 Lead sinus tachycardia Other Diagnostics pH ____7.421 - pCO2 ___46.0__ -mmHg pO2 ___44.0__ -mmHg HCO3- ___29.4__ -mmol/L ABE ____4.6__ -mmol/L tHb ___14.0__ -g/dL O2Hb ___76.8__ -% COHb ____2.9__ -% MetHb ____1.1__ -% sO2 ___80.0__ -% FIO2 ___21.0__ -% Drawn By lab - Date/Time Notified____ 10:50:00 -_ Notified By cf - Notified Whom ___Dr. O'gisela - B 756 -mmHg tO2 ___15.1__ -Vol% Felicita test N/A - Brief History This is a 51-year-old patient with a history of diabetes mellitus, hypertension , chronic pain syndrome. He was doing well until last night when he developed acute nausea vomiting diarrhea. He had multiple episodes of both diarrhea and vomiting. No blood per rectum or hematemesis. He has some abdominal cramping. He did take his insulin and pain medications yesterday. This morning he had persistent symptoms and felt weak. He was brought to the ER he is found to be volume depleted and had a sinus tachycardia. The patient has a history of hypertension thought to have systolic blood pressures over 200 in the ER. He was given multiple doses of a bagel all up to a total of 60 mg with only transient improvement. He also was found to be in sinus tachycardia. There is concern about atrial fibrillation he was given multiple doses of adenosine with no change in rhythm. The patient was then bolused with 3 L of saline. He did have hyperglycemia with a blood glucose in the 400s upon arrival. He was given a small dose of 5 units of regular insulin in this with fluids improved the sugar to about 200. The patient is complaining of acute and chronic lumbar pain and has not had his pain medications since yesterday. He takes morphine long-acting 15 mg 5 times a day and oxycodone short acting 10 mg twice a day when necessary breakthrough pain. Pulses ill at home or work with nausea vomiting diarrhea. Hospital Course 1. Nausea and diarrhea, POA. Possible gastroenteritis. Stool PCR is pending as he is no diarrhea since admission. We will continue to treat him symptomatically and start his oral medications. His symptoms are improved. No stool for sample at this point. We will try a suppository this morning. 2. Volume depletion with sinus tachycardia, POA. IVF repletion. This is resolved. 3. Lactic acidosis, POA. IVF as above. This is resolved with IV fluids. 4. DM with hyperglycemia, POA. SQ insulin (lantus and lispro) as well as IVF. His blood sugars are still slightly high in the 250 range. Will add an additional dose of glargine 20 this morning. Continue IV fluids. . This is improved 5. Hypertensiove crisis, POA. hydralazine as needed. Metoprolol IV as needed. Well add back in his chronic medications metoprolol 50 twice a day diltiazem CD 240 This is improved 6. Continuous opiate dependence, chronic lumbar pain, POA. Dilaudid IV prn pain. We will increase Dilaudid 2-2 mg every 2 for his continuous opiate dependence and tolerance as well as poor pain control and reinstitute his oral medications today. He will try to resume his oral MS today. Full code. Inpatient status with LOS of 2 nights. Hospital course. This patient was admitted for nausea vomiting diarrhea. The time of admission he was fine depleted and had a pronounced lactic acidosis. This in context of his diabetes. He was also hyperglycemic. He did have negative ketones however. He was treated apparently with fluid resuscitation and serial lactic acid values resolved. The patient had no further stooling after admission. He did require IV Dilaudid for his acute on chronic lumbar back pain while he was vomiting. Antiemetics did improve him as well. His blood sugars normalize. Patient was initially very hypertensive and in fact hypertensive crisis was his primary concern was first admitted. He was treated with IV labetalol and hydralazine. These symptoms improved. The patient wondered if his nausea and vomiting led him in detail. Withdrawal because he is unable to take his morphine sulfate which she takes 15 mg 5 times a day. In retrospect seems likely that opiate withdrawal was at least part of his clinical symptoms. In any case the patient improved dramatically. He did have one run of PSVT which she has had many times in the past. In addition he has paroxysmal atrial fibrillation and is on per DEXA. He is very comfortable with discharge on the day of discharge and in fact requested it. He agrees to short- term follow-up. Exam Vital Signs (Last) Date Time Temp Pulse Resp B/P Pulse Ox O2 Delivery O2 Flow Rate FiO2 11/20/16 12:03 36.9 84 15 143/85 97 Room Air Exam Patient seen and examined on date of discharge Test 11/18/16 09:55 11/18/16 11:15 11/18/16 16:35 11/19/16 04:15 Hemoglobin A1c 12.5% (4.8-5.6) Magnesium Level 1.8mg/dL (1.6-2.6) Troponin T 0.010ug/L (0.0-0.011) Lipase 9U/L (13-60) Ketones Negative (Negative) Hold Urine Received (Received) Hold [place] Top Tube Received (Received) Hold [place] Top Tube Received (Received) Neutrophils (%) (Auto) 75.4% (40-74) Lymphocytes (%) (Auto) 16.6% (14-46) Monocytes (%) (Auto) 7.3% (4-12) Eosinophils (%) (Auto) 0.3% (0-5) Basophils (%) (Auto) 0.1% (0-3) Triglycerides Level 138mg/dL (0-149) Cholesterol Level 203mg/dL (100-199) LDL Cholesterol, Calculated 127.400mg/dL (0-99) VLDL Cholesterol 27.600mg/dL HDL Cholesterol 48mg/dL (>39) Cholesterol/HDL Ratio 4.23 (0.0-4.4) Test 11/19/16 09:21 11/20/16 09:26 Lactic Acid Level 0.9mmol/L (0.4-2.0) White Blood Count 9.7th/mm3 (3.8-10.1) Red Blood Count 4.50mil/mm3 (4.40-5.80) Hemoglobin 12.5g/dL (13.8-17.2) Hematocrit 37.5% (41.0-50.0) Mean Corpuscular Volume 83.3fL (81-100) Mean Corpuscular Hemoglobin 27.8pg (27.0-35.0) Mean Corpuscular Hemoglobin Concent 33.3% (32.0-37.0) Red Cell Distribution Width 14.5% (12.3-15.4) Platelet Count 365bil/L (150-400) Sodium Level 134mEq/L (134-144) Potassium Level 3.6mEq/L (3.5-5.2) Chloride Level 97mEq/L (97-108) Carbon Dioxide Level 24mmol/L (18-29) Blood Urea Nitrogen 10mg/dL (6-24) Creatinine 0.45mg/dL (0.76-1.27) Estimat Glomerular Filtration Rate 209mL/min (>59) Glucose Level 215mg/dL (60-99) Calcium Level 8.3mg/dL (8.5-10.1) Total Bilirubin 0.4mg/dL (0.0-1.2) Aspartate Amino Transf (AST/SGOT) 14U/L (0-50) Alanine Aminotransferase (ALT/SGPT) 9U/L (0-44) Alkaline Phosphatase 115U/L (25-150) Total Protein 6.1g/dL (6.4-8.4) Albumin 3.7g/dL (3.4-5.0) Discharge Medications Discharge Medications Cyclobenzaprine (Cyclobenzaprine) 10 Mg Tablet 10 MG PO TID (Reported) Dabigatran Etexilate Mesylate (Pradaxa) 150 Mg Capsule 150 MG PO BID (Reported) Diltiazem ER (Diltiazem ER) 120 Mg Cap.er.24h 120 MG PO DAILY (Reported) Ezetimibe (Zetia) 10 Mg Tablet 10 MG PO BID (Reported) Gabapentin (Gabapentin) 400 Mg Capsule 1,200 MG PO TID (Reported) Insulin Glargine (Lantus U100 Solostar Insulin Pen) 100 Unit/1 Ml Insuln.pen 40 UNIT SUBQ HS (Reported) Metoprolol Tartrate (Metoprolol Tartrate) 50 Mg Tablet 50 MG PO BID (Reported) Morphine Sulfate ER (MS Contin) 15 Mg Tablet.er 15 MG PO 5XD (Reported) Ranitidine (Ranitidine) 150 Mg Capsule 150 MG PO DAILY (Reported) Tamsulosin (Flomax) 0.4 Mg Capsule 0.4 MG PO DAILY (Reported) As needed Albuterol HFA (Proair HFA) 8.5 Gm Hfa.aer.ad 2 PUFFS INHALATION Q4H PRN PRN For Shortness of Breath (Reported) Metoclopramide (Reglan) 5 Mg Tablet 5 MG PO QID PRN PRN For Nausea Prescribed by: FELICITA CABRAL MD Nitroglycerin SL (Nitrostat) 0.4 Mg Tab.subl 0.4 MG SL Q5MIN PRN PRN For Chest Pain (Reported) Ondansetron (Ondansetron) 4 Mg Tablet 4 MG PO QID PRN PRN For Nausea (Reported) Oxycodone (Roxicodone) 5 Mg Tablet 10 MG PO QID PRN PRN For Pain (Reported) Followup Plan Disposition: Home Discharge Diet: No restrictions Discharge Activity: No restrictions Follow-up with PCP in: 1 week Time spent 40 min Felicita Cabral MD Nov 20, 2016 14:45
--- NOTE | 2016-11-20 15:35 | NUR ---
Discharge note Patient a/o x 4, c/o chronic back pain 03/13, scheduled and prn meds given with moderate effect. Patient amb indep steady gait. Zofran x 1 given prior to breakfast and patient able to yanelis approx 33% of breakfast. Tele SR-ST 90-100's. See vitals. IV SL and tele removed intact. Patient given discharge instructions, medication reconciliation, info on HTN, Reglan, Atrial Tachycardia and new prescriptions. All questions answered. Patient amb to main entrance and waited for to transport home.
[2017-02-07] MEDS ORDERED: OMEP40CA36 PO (18:24)
[2017-02-07] MEDS ORDERED: PROC-4 PO (18:24)
[2017-02-07] MEDS ORDERED: ALFU10TA11 PO (18:24)
[2017-02-07] MEDS ORDERED: FLEC100T2 PO (18:24)
== END 2016-11-20 15:41 | disposition home or self-care (01) | DRG 392 ==
LOC: EDBD 09:11 → SED 09:11 → PCC 13:58 → OBSVTOIN 13:58
PROVIDERS: ADMIT Hospitalist; ATTEND Hospitalist
PROC: 4A033B1 Measurement of Arterial Pressure, Peripheral, Percutaneous Approach (ICD-10-PCS; principal; 2016-11-18)
PROC: 3E0D7RZ Introduction of Antiarrhythmic into Mouth and Pharynx, Via Natural or Artificial Opening (ICD-10-PCS; 2016-11-18)
DX: K52.9 Noninfective gastroenteritis and colitis, unspecified (principal); F11.20 Opioid dependence, uncomplicated; E87.2 Acidosis; I16.9 Hypertensive crisis, unspecified; F03.90 Unspecified dementia, unspecified severity, without behavioral disturbance, psychotic disturbance, mood disturbance, and anxiety; I10 Essential (primary) hypertension; F17.200 Nicotine dependence, unspecified, uncomplicated; E11.65 Type 2 diabetes mellitus with hyperglycemia; E86.0 Dehydration; I48.0 Paroxysmal atrial fibrillation; G89.4 Chronic pain syndrome; Z79.51 Long term (current) use of inhaled steroids; Z79.4 Long term (current) use of insulin; Z79.01 Long term (current) use of anticoagulants

== ENCOUNTER 2016-12-20 19:21 | Observation (INO) | payer OTHER ==
[~2016-12-20] VITALS: Ht 177.8 cm; Wt 86.6 kg
[~2016-12-20 19:21] MED LIST changes: +ALBU8.5H2 INHALATION; +INSU100I13 SUBQ; +METO5TAB78 PO; -MORP15TA PO; -MORP30CA17 PO; +MS15TCR PO; -NITR0.3T6 SL; +NITR0.4T SL; +OXYC-474 PO; -PROC10TA PO
[2016-12-20 19:26] VITALS: BP 123/75; PULSE 98; RESP 18; O2SAT 93
--- NOTE | 2016-12-20 19:35 | ED.REPORT ---
HPI-General Illness Date of Service Dec 20, 2016 ED Provider: Boone Ayoub MD Nursing Notes Stated Complaint: AFIB Chief Complaint: Chest Pain Allergies: Coded Allergies: HUMBERTO Inhibitors (Verified Allergy, Severe, 12/20/16) lisinopril (Verified Allergy, Unknown, 12/20/16) simvastatin (Verified Allergy, Unknown, 11/30/15) varenicline (Verified Allergy, Unknown, 11/30/15) Scheduled Cyclobenzaprine (Cyclobenzaprine) 10 Mg Tablet 10 MG PO TID Dabigatran Etexilate Mesylate (Pradaxa) 150 Mg Capsule 150 MG PO BID Diltiazem ER (Diltiazem ER) 120 Mg Cap.er.24h 120 MG PO DAILY Ezetimibe (Zetia) 10 Mg Tablet 10 MG PO BID Gabapentin (Gabapentin) 400 Mg Capsule 1,200 MG PO TID Insulin Glargine (Lantus U100 Solostar Insulin Pen) 100 Unit/1 Ml Insuln.pen 40 UNIT SUBQ HS Metoprolol Tartrate (Metoprolol Tartrate) 50 Mg Tablet 50 MG PO BID Morphine Sulfate ER (MS Contin) 15 Mg Tablet.er 15 MG PO 5XD Ranitidine (Ranitidine) 150 Mg Capsule 150 MG PO DAILY Tamsulosin (Flomax) 0.4 Mg Capsule 0.4 MG PO DAILY Scheduled PRN Albuterol HFA (Proair HFA) 8.5 Gm Hfa.aer.ad 2 PUFFS INHALATION Q4H PRN PRN For Shortness of Breath Metoclopramide (Reglan) 5 Mg Tablet 5 MG PO QID PRN PRN For Nausea Nitroglycerin SL (Nitrostat) 0.4 Mg Tab.subl 0.4 MG SL Q5MIN PRN PRN For Chest Pain Ondansetron (Ondansetron) 4 Mg Tablet 4 MG PO QID PRN PRN For Nausea Oxycodone (Roxicodone) 5 Mg Tablet 10 MG PO QID PRN PRN For Pain General Time Seen by MD: 19:30 Past Medical History Past Medical History Chronic back pain. HX of Afib. Dr. Louis Wood is their doctor . Reports: Diabetes mellitus, Hypertension Past Surgical History Vasectomyx2 09/16/16 Smoking History Current Every Day Smoker Social History Other Social History: Good social support Ambulatory Status Independent Physical Exam Vital Signs Vital Signs Date Time Temp Pulse Resp B/P Pulse Ox O2 Delivery O2 Flow Rate FiO2 12/20/16 19:26 36.7 98 18 123/75 93 Room Air Discharge & Departure Referrals: NOPCP (PCP) (Family) Boone Ayoub MD Dec 20, 2016 19:35 Yamel Marcos Dec 20, 2016 19:43
--- NOTE | 2016-12-20 19:43 | ED.REPORT ---
HPI-Chest Pain 40 and Over Date of Service Dec 20, 2016 ED Provider: Aldair Cooley DO Patient is a 51 year old male with a history of paroxysmal atrial fibrillation on Pradaxa, PSVT, diabetes mellitus, hypertension, and chronic back pain with opiate dependence who presents to the ED via EMS complaining of a rapid heart rate and chest pressure that began just prior to arrival. Patient states that his symptoms were sudden in onset, with 8/10 chest pressure. EMS found the patient to be in atrial fibrillation, with a rate in the 170s. He was given a total of 50mg Cardizem, which dropped his rate to the 100-120s. Patient has converted to a NSR on arrival to the ED, with chest pressure improved to 2/10. He reports having 5-6 episodes of atrial fibrillation since September of this year. He denies shortness of breath, fever, nausea, or vomiting. Patient admits to being anxious. Nursing Notes Stated Complaint: AFIB Chief Complaint: Chest Pain Nursing Notes Reviewed: Yes Allergies: Coded Allergies: HMUBERTO Inhibitors (Verified Allergy, Severe, 12/20/16) simvastatin (Verified Allergy, Severe, Renal failure, 12/20/16) lisinopril (Verified Allergy, Unknown, 12/20/16) varenicline (Verified Allergy, Unknown, 12/20/16) Scheduled Aspirin Chew (Aspirin Chew) 81 Mg Chew 81 MG PO QAM Cholecalciferol (Vitamin D3) (Vitamin D3) 2,000 Unit Tablet 2,000 UNIT PO QAM Cyclobenzaprine (Cyclobenzaprine) 10 Mg Tablet 10 MG PO TID Dabigatran Etexilate Mesylate (Pradaxa) 150 Mg Capsule 150 MG PO BID Diltiazem ER (Diltiazem ER) 120 Mg Cap.er.24h 120 MG PO QAM Ezetimibe (Zetia) 10 Mg Tablet 10 MG PO QAM Gabapentin (Gabapentin) 400 Mg Capsule 1,200 MG PO TID Insulin Glargine (Lantus U100 Solostar Insulin Pen) 100 Unit/1 Ml Insuln.pen 20 UNIT SUBQ BID Metoprolol Tartrate (Metoprolol Tartrate) 50 Mg Tablet 50 MG PO BID Morphine Sulfate ER (MS Contin) 15 Mg Tablet.er 15 MG PO 5XD 0400,0900,1400,1800,2300 Multivit with Calcium,Iron,Min (Therapeutic M) 1 Each Tablet 1 EACH PO QAM Oxycodone (Roxicodone) 5 Mg Tablet 10 MG PO BID Ranitidine (Ranitidine) 150 Mg Capsule 150 MG PO BIDAC Tamsulosin (Flomax) 0.4 Mg Capsule 0.4 MG PO QAM Scheduled PRN Acetaminophen (Acetaminophen) 325 Mg Tablet 650 MG PO Q4H PRN PRN For Headache Albuterol HFA (Proair HFA) 8.5 Gm Hfa.aer.ad 2 PUFFS INHALATION Q4H PRN PRN For Shortness of Breath Metoclopramide (Reglan) 5 Mg Tablet 5 MG PO QID PRN PRN For Nausea Nitroglycerin SL (Nitrostat) 0.4 Mg Tab.subl 0.4 MG SL Q5MIN PRN PRN For Chest Pain Ondansetron (Ondansetron) 4 Mg Tablet 4 MG PO QID PRN PRN For Nausea General Time Seen by MD: 19:40 Chief Complaint Chest pain, Other (palpitations) Hx Obtained From: Patient, EMS Arrived By: Ambulance Sudden in Onset?: Yes Onset Occurred: Just prior to arrival Symptom Duration: Since onset Location: : Chest left: Chest right Quality: Pressure Severity: Current: Pain level 2 out of 10 Severity: Maximum: Pain level 8 out of 10 Recent Healthcare: No recent doctor visit, No recent hospitalization Similar Sx Previous: Yes Past Medical History Past Medical History Notes: Dr. Louis Wood is their doctor . Past Medical History Chronic back pain with opiate dependence Paroxysmal atrial fibrillation on Pradaxa PSVT BPH Reports: Diabetes mellitus, Hypertension Past Surgical History Vasectomyx2 09/16/16 Smoking History Current Every Day Smoker Social History Other Social History: Good social support, Local resident Ambulatory Status Independent Review of Systems Constitutional: Denies: Chills, Fever Respiratory: Denies: Shortness of breath Cardiovascular: Reports: Chest pain, Palpitations GI: Denies: Nausea, Vomiting Psychiatric: Reports: Anxiety Complete sys rev & neg: except as marked. Physical Exam Initial Vital Signs Vital Signs (First) Date Time Temp Pulse Resp B/P Pulse Ox O2 Delivery O2 Flow Rate FiO2 12/20/16 19:26 36.7 98 18 123/75 93 Room Air Initial VS: Reviewed Head / Eyes: Atraumatic, Normocephalic, PERRL ENT: Conjunctiva normal, No scleral icterus Skin: Warm, Dry, No cyanosis Neurologic: Alert, Oriented, Nonfocal Psychiatric: Mood/affect normal, Behavior normal, Normal thought content General/Constitutional: Awake, Alert, No acute distress Respiratory / Chest: Breath sounds NL, Breath sounds = bilat, No respiratory distress, No rales, No rhonchi, No wheezing Cardiovascular: Heart rate NL, Regular rhythm, Heart sounds NL, No murmurs Abdomen: Soft, Non-tender Neck: Supple, No JVD Lower Extremity / Pelvis / MS: No swelling, No edema Upper Extremity / MS: No swelling, No edema Interpretation & Diagnostics Lab Results Interpretation Result Diagram: 12/20/16 1924 12/20/16 1924 Test 12/20/16 19:24 White Blood Count 10.0th/mm3 (3.8-10.1) Red Blood Count 4.65mil/mm3 (4.40-5.80) Hemoglobin 13.0g/dL (13.8-17.2) Hematocrit 38.7% (41.0-50.0) Mean Corpuscular Volume 83.2fL (81-100) Mean Corpuscular Hemoglobin 28.0pg (27.0-35.0) Mean Corpuscular Hemoglobin Concent 33.6% (32.0-37.0) Red Cell Distribution Width 14.0% (12.3-15.4) Platelet Count 419bil/L (150-400) Neutrophils (%) (Auto) 58.7% (40-74) Lymphocytes (%) (Auto) 30.0% (14-46) Monocytes (%) (Auto) 6.9% (4-12) Eosinophils (%) (Auto) 3.9% (0-5) Basophils (%) (Auto) 0.3% (0-3) Sodium Level 132mEq/L (134-144) Potassium Level 4.2mEq/L (3.5-5.2) Chloride Level 91mEq/L (97-108) Carbon Dioxide Level 22mmol/L (18-29) Blood Urea Nitrogen 10mg/dL (6-24) Creatinine 0.69mg/dL (0.76-1.27) Estimat Glomerular Filtration Rate 127mL/min (>59) Glucose Level 598mg/dL (60-99) Lactic Acid Level 2.5mmol/L (0.4-2.0) Calcium Level 9.3mg/dL (8.5-10.1) Magnesium Level 1.9mg/dL (1.6-2.6) Total Bilirubin 0.2mg/dL (0.0-1.2) Aspartate Amino Transf (AST/SGOT) 11U/L (0-50) Alanine Aminotransferase (ALT/SGPT) 9U/L (0-44) Alkaline Phosphatase 140U/L (25-150) Troponin T < 0.010ug/L (0.0-0.011) Total Protein 7.1g/dL (6.4-8.4) Albumin 4.0g/dL (3.4-5.0) Ketones Negative (Negative) ECG Interpretation ECG Interpretation: Normal Sinus Rhythm, Rate 96 probable left atrial enlargement Time: 19:46 Interpreted by: ED physician X-Ray Chest Interpretation Chest Xray Interpretation: IMPRESSION: The left hilum was normal 11/18/16. The mild prominence of the left hilum and this plain film imaging likely represents mild venous congestion. The clinical history includes atrial fibrillation. No definite pneumonia found. Dictated by: Arcenio Sherman M.D. on 12/20/2016 at 20:19 Approved by: Arcenio Sherman M.D. on 12/20/2016 at 20:21 View: Portable Interpretation / Wet Read by: Interpret - Radiologist Re-Eval/Medical Decision Source of Hx: Old records Time of Eval: 20:25 Re-Evaluation/Progress Note: Rechecked the patient. He reports ongoing chest pain but he remains in a NSR. Time of Eval: 21:00 Re-Evaluation/Progress Note: Patient reports ongoing pain, now 09/13. Discussed the results of his labs, EKG, and chest x-ray. Patient will be admitted to the hospital for further care, including a cardiac stress test. Patient understands and agrees with this plan. All questions were addressed. 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 Denise, hospitalist, who agrees to accept admit. His blood glucose will need to be under 500 to be admitted to the PCU. 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 I, Dr. Cooley personally performed the history, physical exam and medical decision-making; I reviewed and confirmed the accuracy of the information in the transcribed note. Signed by: Loren Velasco, 12/20/2016 2125 Aldair Cooley DO Dec 20, 2016 19:43 Yamel Marcos Dec 20, 2016 19:47
[2016-12-20] MEDS ORDERED: 0.9% Sodium Chloride 1,000 ML IV ONE (19:45)
[2016-12-20 20:04] LABS: BASOPHILS % (AUTO) 0.3 % (0-3); EOSINOPHILS % (AUTO) 3.9 % (0-5); MONOCYTES % (AUTO) 6.9 % (4-12); Mean Corpuscular Volume 83.2 fL (81-100); NEUTROPHILS % (AUTO) 58.7 % (40-74); Platelet Count 419 bil/L (150-400)
--- NOTE | 2016-12-20 20:22 | DRSVH ---
PROCEDURE: X-RAY CHEST ONE VIEW, PORTABLE ([id number]) INDICATIONS: afib/cp TECHNIQUE: One view of the chest was acquired. COMPARISON: [facility], CR, XR CHEST 1VW (PORTABLE), 11/18/2016, 10:24. [facility], CT, CT ANGIO CHEST ABD, 11/18/2016, 12:16. FINDINGS: Surgical changes and devices: None. Lungs and pleura: No pleural effusions or pneumothorax. Lungs are clear. Mediastinum: Mediastinal contours appear normal except for mild prominence of the left hilum, in an area previously normal during recent CT scanning 11/18/16.. Heart size is normal. Bones and chest wall: No suspicious bony lesions. Overlying soft tissues appear unremarkable. IMPRESSION: The left hilum was normal 11/18/16. The mild prominence of the left hilum and this plain film imaging likely represents mild venous congestion. The clinical history includes atrial fibrill ation. No definite pneumonia found. Dictated by: Arcenio Sherman M.D. on 12/20/2016 at 20:19 Approved by: Acrenio Sherman M.D. on 12/20/2016 at 20:21
[2016-12-20 20:24] LABS: TROPONIN T < 0.010 ug/L (0.0-0.011)
[2016-12-20] MEDS ORDERED: Nitroglycerin 2% 1 Gm Ointment TOPICAL ONE (20:25)
[2016-12-20] MEDS ORDERED: MeTOProlol 1 mg/mL 5 mL Inj IVPUSH ONE (20:25)
[2016-12-20 20:34] LABS: Magnesium 1.9 mg/dL (1.6-2.6)
[2016-12-20] MEDS ORDERED: Insulin Human REGular 300 Unit/3 mL Inj IV ONE (21:10)
[2016-12-20] MEDS ORDERED: 0.9% Sodium Chloride 500 ML IV ONE (21:15)
[2016-12-20] MEDS ORDERED: CHOL200025 PO (21:51)
[2016-12-20] MEDS ORDERED: ASPI81TA3 PO (21:52)
[2016-12-20] MEDS ORDERED: MULT-140 PO (21:52)
[2016-12-20] MEDS ORDERED: ACET325T51 PO (21:52)
[2016-12-20] MEDS ORDERED: Alum-Mag Hydrox-Simeth 30 mL Suspension PO PRN (22:20)
[2016-12-20] MEDS ORDERED: Polyethylene Glycol (PEG) 17 Gm Powder PO PRN (22:20)
[2016-12-20] MEDS ORDERED: Atropine 1 mg/10 mL (Code) Syringe IVPUSH PRN (22:20)
[2016-12-20] MEDS ORDERED: Senna-Docusate 8.6-50 mg Tablet PO PRN (22:20)
[2016-12-20] MEDS ORDERED: Ondansetron 2 mg/mL 2 mL Inj IVPUSH PRN (22:20)
[2016-12-20 22:50] VITALS: BP 128/64; PULSE 91; RESP 20; O2SAT 98
[2016-12-20] MEDS ORDERED: Morphine ER 30 mg (MS Contin) Tablet PO SCH (22:55)
[2016-12-20] MEDS ORDERED: oxyCODONE ER 10 mg ER12 Tablet PO PRN (22:55)
[2016-12-20 23:08] VITALS: PULSE 89
[2016-12-20 23:11] VITALS: BP 135/84; PULSE 76; RESP 16; O2SAT 97
--- NOTE | 2016-12-20 23:12 | PCM.HPMED ---
Subjective Date of Service Dec 20, 2016 Primary Provider: Admitting Physician: Jessie Denise DO Primary Care Physician: Carolann Reyes DO Attending Physician: Jessie Denise DO Admit Status: From the Emergency Department Chief Complaint: Chest Pain, Palpitations History of Present Illness: 51yo male war with chronic back pain since injury in the [place], 2 year history of paroxysmal AFib on Pradaxa, also history of PSVT, DM2 on insulin , HTN presented to our ED via EMS today with complaint of palpitations and chest pressure. Patient states that his symptoms were sudden in onset, with 8/ 10 chest pressure. EMS found the patient to be in atrial fibrillation, with a rate in the 170s. He was given a total of 50mg Cardizem, which dropped his rate to the 100-120s. Patient converted to a NSR on arrival to the ED, with chest pressure improved to 2/10 and now resolved. He reports having 5-6 episodes of atrial fibrillation since September of this year. He denies shortness of breath, fever, nausea, or vomiting. Patient admits to being anxious. Review of Systems: 14point ROS is negative except as noted above in the HPI. Allergies Coded Allergies: HUMBERTO Inhibitors (Verified Allergy, Severe, 12/20/16) simvastatin (Verified Allergy, Severe, Renal failure, 12/20/16) lisinopril (Verified Allergy, Unknown, 12/20/16) varenicline (Verified Allergy, Unknown, 12/20/16) Home Medications Scheduled Aspirin Chew (Aspirin Chew) 81 Mg Chew 81 MG PO QAM Cholecalciferol (Vitamin D3) (Vitamin D3) 2,000 Unit Tablet 2,000 UNIT PO QAM Cyclobenzaprine (Cyclobenzaprine) 10 Mg Tablet 10 MG PO TID Dabigatran Etexilate Mesylate (Pradaxa) 150 Mg Capsule 150 MG PO BID Diltiazem ER (Diltiazem ER) 120 Mg Cap.er.24h 120 MG PO QAM Ezetimibe (Zetia) 10 Mg Tablet 10 MG PO QAM Gabapentin (Gabapentin) 400 Mg Capsule 1,200 MG PO TID Insulin Glargine (Lantus U100 Solostar Insulin Pen) 100 Unit/1 Ml Insuln.pen 20 UNIT SUBQ BID Metoprolol Tartrate (Metoprolol Tartrate) 50 Mg Tablet 50 MG PO BID Morphine Sulfate ER (MS Contin) 15 Mg Tablet.er 15 MG PO 5XD 0400,0900,1400,1800,2300 Multivit with Calcium,Iron,Min (Therapeutic M) 1 Each Tablet 1 EACH PO QAM Oxycodone (Roxicodone) 5 Mg Tablet 10 MG PO BID Ranitidine (Ranitidine) 150 Mg Capsule 150 MG PO BIDAC Tamsulosin (Flomax) 0.4 Mg Capsule 0.4 MG PO QAM Scheduled PRN Acetaminophen (Acetaminophen) 325 Mg Tablet 650 MG PO Q4H PRN PRN For Headache Albuterol HFA (Proair HFA) 8.5 Gm Hfa.aer.ad 2 PUFFS INHALATION Q4H PRN PRN For Shortness of Breath Metoclopramide (Reglan) 5 Mg Tablet 5 MG PO QID PRN PRN For Nausea Nitroglycerin SL (Nitrostat) 0.4 Mg Tab.subl 0.4 MG SL Q5MIN PRN PRN For Chest Pain Ondansetron (Ondansetron) 4 Mg Tablet 4 MG PO QID PRN PRN For Nausea PMH Chronic back pain with opiate dependence Paroxysmal atrial fibrillation on Pradaxa PSVT BPH Reports: Diabetes mellitus, Hypertension Surgical History Vasectomy reversed and unreversed Family History Father of lung cancer at age 60 Mother has COPD, still living Social History Hx Alcohol Use: No Hx Substance Use: Yes Smoking Status: Current Every Day Smoker (1ppd) Years of Smokin Living Arrangement: with Family Exam Vital Signs Vital Sign - Last Date Time Temp Pulse Resp B/P Pulse Ox O2 Delivery O2 Flow Rate FiO2 12/20/16 22:50 36.8 91 20 128/64 98 Nasal Cannula 2 Exam General: Alert, Oriented X3, Cooperative, No Acute Distress Head: Normocephalic, atraumatic. External ears normal. Eyes: PERRLA, EOMI. Anicteric sclerae. Mouth: Mouth Normal, Mucous Membranes Moist/[place], dentures upper and lower Neck: Neck supple with full range of motion. Chest & Lungs: Clear to auscultation bilaterally with no crackles, wheezes, or rhonchi. Cardiovascular: Regular Rate/Rhythm, Normal S1, Normal S2, No Murmurs/Rubs/ Gallops Abdomen: Non-tender, Non-distended, No masses, Normoactive bowel tones, Soft Musculoskeletal: overview of extremities is normal Extremities: No cyanosis/clubbing/edema bilaterally Neurological: Grossly Neurologically Intact, Cranial Nerves 2-12 Intact, Normal Speech Lab and Diagnostics Labs Laboratory Tests Test 12/20/16 19:24 White Blood Count 10.0th/mm3 (3.8-10.1) Red Blood Count 4.65mil/mm3 (4.40-5.80) Hemoglobin 13.0g/dL (13.8-17.2) Hematocrit 38.7% (41.0-50.0) Mean Corpuscular Volume 83.2fL (81-100) Mean Corpuscular Hemoglobin 28.0pg (27.0-35.0) Mean Corpuscular Hemoglobin Concent 33.6% (32.0-37.0) Red Cell Distribution Width 14.0% (12.3-15.4) Platelet Count 419bil/L (150-400) Neutrophils (%) (Auto) 58.7% (40-74) Lymphocytes (%) (Auto) 30.0% (14-46) Monocytes (%) (Auto) 6.9% (4-12) Eosinophils (%) (Auto) 3.9% (0-5) Basophils (%) (Auto) 0.3% (0-3) Sodium Level 132mEq/L (134-144) Potassium Level 4.2mEq/L (3.5-5.2) Chloride Level 91mEq/L (97-108) Carbon Dioxide Level 22mmol/L (18-29) Blood Urea Nitrogen 10mg/dL (6-24) Creatinine 0.69mg/dL (0.76-1.27) Estimat Glomerular Filtration Rate 127mL/min (>59) Glucose Level 598mg/dL (60-99) Lactic Acid Level 2.5mmol/L (0.4-2.0) Calcium Level 9.3mg/dL (8.5-10.1) Magnesium Level 1.9mg/dL (1.6-2.6) Total Bilirubin 0.2mg/dL (0.0-1.2) Aspartate Amino Transf (AST/SGOT) 11U/L (0-50) Alanine Aminotransferase (ALT/SGPT) 9U/L (0-44) Alkaline Phosphatase 140U/L (25-150) Troponin T < 0.010ug/L (0.0-0.011) Total Protein 7.1g/dL (6.4-8.4) Albumin 4.0g/dL (3.4-5.0) Ketones Negative (Negative) Result Diagram: 12/20/16192312/20/161923 Microbiology blood culture pending X-Rays, CTs and MRIs CXR IMPRESSION: The left hilum was normal 11/18/16. The mild prominence of the left hilum and this plain film imaging likely represents mild venous congestion. The clinical history includes atrial fibrillation. No definite pneumonia found. 12-lead ECG NSR with rate of 96 Probably LAE Assessment & Plan 51yo man with history of chronic back pain on chronic opioid therapy since the [place] and paroxysmal AFib that started two years ago presents with chest pain and palpitations. His Afib has been more frequent since September requiring around 7 treatments, both electrocardioversion and pharmacological, also self- converting without treatment twice he reports. [facility] getting [facility] with [facility]. Chest pain, acute, POA -potentially a/w atrial fibrillation -first troponin was negative -repeat -consider stress test 1. Paroxysmal Atrial Fibrillation, POA, resolved with EMS giving Cardizem in the field. -ECHO ordered -Cardiology consult placed -Continuing home medications until Cardiology makes a recommendation: Metoprolol tartrate 50mg BID, Diltiazem 180mg daily, Pradaxa 150mg PO BID 2. Hypertension, POA, -continue home medications as above 3. DM2, POA, on insulin -Lantus given qhs at 8 units which is half of his usual dose -Low Dose correctional scale Insulin ordered. 4. Hyperlipidemia, POA. Patient did not tolerate statin medications in the past. -Continue Zetia 10mg PO daily 5. Low backpain with Sciatica, POA -Continue Gabapentin 1200mg TID and cyclobenzaprine 10mg PO TID -Change narcotic pain meds to: Oxycodone 10-15mg qrh PO PRN and MSContin 10mg to be given once scheduled this morning. -Call patient pharmacy and confirm what he reported as his home doses if MS Contin and oxycodone.. 6. GERD, POA -Continue Raniditide 7. Chronic Nausea, POA -Ondansetron PRN and Reglan if Ondansetron not effective. 8. BPH, POA -Continue Tamsulosin 9. Tobacco Abuse, POA. No mention or history of COPD or asthma that we have seen. -Nicotine patch availble -may be reason patient has need of Albuterol Nebuliaze, will continue. PRN for constipation: senna and miralax Pain Evaluation: Adequate Pain Control VTE Prophylaxis: Other (Pradaxa 150mg BID) Resuscitation Status: CPR: Attempt Resuscitation Attending Statement The patient was seen and examined together with house staff on 12/21/2016 and I have added additional information to the note above. Giovany Abraham DO Dec 20, 2016 23:12 Jessie Denise DO Dec 21, 2016 06:58
[2016-12-21] VITALS (8 sets, daily range): BP systolic 139–164; BP diastolic 89–101; PULSE 60–85; RESP 16–20; O2SAT 85–99
[2016-12-21] MEDS: Dabigatran 150 mg Capsule PO SCH ×3 (00:01→20:17)
[2016-12-21] MEDS: 0.9% Sodium Chloride 1,000 ML IV SCH ×3 (00:01→23:16)
[2016-12-21] MEDS: Sodium Chloride LOK Flush 10 mL Syringe IVFLUSH SCH ×3 (00:05→16:08)
--- NOTE | 2016-12-21 00:28 | NUR ---
Admit note: Pt admitted from ER, ambulated to bed independently; steady on feet. Denies chest pain/pressure upon arrival. Denies shortness of breath. Is on 2L of oxygen with SpO2 97%. Tele SR 80s. Medicated for chronic back pain with Oxycodone. Alert and oriented x3. Aware of NPO status. Instructed to use call light for needs.
[2016-12-21 06:51] LABS: Mean Corpuscular Hemoglobin 28.2 pg (27.0-35.0); Mean Corpuscular Volume 83.8 fL (81-100)
[2016-12-21] MEDS ORDERED: Albuterol 2.5 mg/3 mL Inhalation Solution NEB PRN (07:00)
[2016-12-21] MEDS ORDERED: Morphine ER 15 mg (MS Contin) Tablet PO ONE (07:00)
[2016-12-21] MEDS: Insulin GLARgine 100 Unit/mL Syringe SUBQ SCH ×2 (07:43→21:50)
[2016-12-21] MEDS: Insulin LISPRO 300 Unit/3 mL Inj SUBQ SCH ×4 (07:45→21:49)
[2016-12-21] MEDS: Diltiazem CD 180 mg ER24 Capsule PO SCH (12:13)
--- NOTE | 2016-12-21 12:22 | NUR ---
stress test/meds per Nuc med, okay to give metoprolol and diltiazem prior to stress test today. meds given.
[2016-12-21] MEDS ORDERED: DILT180C83 PO (13:01)
--- NOTE | 2016-12-21 13:17 | NUR ---
going to stress test at 1320hrs
--- NOTE | 2016-12-21 15:24 | PCM.PNMED ---
Subjective Date of Service Dec 21, 2016 Subjective no further chest pain over night. no palpitation, nausea, vomiting Exam Vital Signs Vital Sign - Last Date Time Temp Pulse Resp B/P Pulse Ox O2 Delivery O2 Flow Rate FiO2 12/21/16 11:30 79 20 98 Room Air 12/21/16 10:58 36.5 142/89 12/21/16 04:05 1.00 Intake and Output 12/20/16 12/20/16 12/21/16 Cumulative From/Thru 15:00 23:00 07:00 12/20/16 19:26 - 12/21/16 06:27 Intake Total 1500 ml 386 ml 1886 ml Output Total 1000 ml 450 ml 1450 ml Balance 500 ml -64 ml 436 ml Intake Oral 0 ml 0 ml IV Total 1500 ml 386 ml 1886 ml Output Urine Total 1000 ml 450 ml 1450 ml # Voids 2 2 # Bowel Movements 0 0 General: Alert, Cooperative, No Acute Distress Head: Normal Eyes: Scleral Anicteric Nose: Mucous Membr Moist/[place] Neck: Supple Chest & Lungs: Chest Wall Normal, Clear to auscultation & percussion Cardiovascular: Regular Rate/Rhythm Abdomen: Non-tender, Non-distended, Normoactive bowel tones, Soft Extremities: No cyanosis/clubbing/edma bilat Neurological: Grossly Neurologically Intact, Normal Speech IVs and Medications Medications Reviewed: Medications were reviewed in detail Lab and Diagnostics Result Diagram: 12/21/16 0542 12/21/16 0542 Microbiology blood culture pending X-Rays, CTs and MRIs CXR IMPRESSION: The left hilum was normal 11/18/16. The mild prominence of the left hilum and this plain film imaging likely represents mild venous congestion. The clinical history includes atrial fibrillation. No definite pneumonia found. 12-lead ECG NSR with rate of 96 Probably LAE Assessment & Plan 51yo man with history of chronic back pain on chronic opioid therapy since the War and paroxysmal A-Fib that started two years ago presents with chest pain and palpitations. His Afib has been more frequent since September requiring around 7 treatments, both electrocardioversion and pharmacological, also self- converting without treatment twice he reports. # Chest pain, acute, POA -potentially due to atrial fibrillation -ACS ruled out with negative Trop -stress test ordered this morning -cardiology consulted this morning as well and will followup with further recommendations pending stress test result. # Paroxysmal Atrial Fibrillation, back to sinus rhythm with EMS giving Cardizem in the field. -followup pending ECHO -cardiology consult as noted above -continue with current Metoprolol tartrate 50mg BID, Diltiazem 180mg daily, Pradaxa 150mg PO BID for now # Chronic Hypertension, under control -continue home medications as above # DM2, on insulin -continue with current coverage including Lantus and ISS # Hyperlipidemia, POA. Patient did not tolerate statin medications in the past. -continue Zetia 10mg PO daily # Chronic low back pain with Sciatica, POA -continue Gabapentin and cyclobenzaprine -continue with supportive care including pain control as needed # GERD, stable -continue Raniditide # Chronic Nausea, stable -Ondansetron PRN and Reglan if Ondansetron not effective. # BPH, stable -continue Tamsulosin # Tobacco Abuse, POA. No mention or history of COPD or asthma that we have seen. -Nicotine patch available Dispo: possibly home later today vs tomorrow pending cardiac workup and consult noted above. VTE Prophylaxis: Other (Pradaxa 150mg BID) Resuscitation Status: CPR: Attempt Resuscitation Mal Locke Dec 21, 2016 15:24
--- NOTE | 2016-12-21 16:56 | DRSVH ---
PROCEDURE: 1 DAY PHARMACOLOGICAL STRESS TEST Rest and pharmacological stress myocardial perfusion SPECT with gated imaging and ejection fraction RADIOPHARMACEUTICAL: 9.2 mCi Tc-99m tetrafosmin IV at rest and 26.9 mCi Tc-99m tetrafosmin IV at peak effect of pharmacological stress. A [id number] was performed. INDICATIONS: 51-year-old man with chest pain. Patient has diabetes, hypertension, hyperlipidemia and smoking as risk factors for coronary artery disease. He also has atrial fibrillation. TECHNIQUE: Radiopharmaceutical was injected at peak stress test, and also at rest. SPECT images wer e obtained. SPECT myocardial perfusion images were displayed in short axis, horizontal long axis, an d vertical long axis views. Gated images were reviewed using RunteqQUANT software. COMPARISON: None. CARDIAC STRESS: A pharmacologic stress test was performed under the supervision of an attending staff, using an infus ion of Lexiscan. Hemodynamic data: There is normal blood pressure and heart rate response to pharmacologic stress. Symptoms: The patient experienced mild transient chest pressure during Lexiscan infusion. Aminophylline: 100 mg IV EKG: No diagnostic changes of ischemia; no ectopy. FINDINGS: Raw data: There is good myocardial uptake of radiotracer. No significant motion artifacts. Left ventricle function: Gated images demonstrate normal left ventricular wall thickening. No segme ntal wall motion abnormalities. No transient ischemic dilation. Left ventricle resting end diastoli c volume is normal. Left ventricle stress ejection fraction is greater than 70%; normal range is abo ve 45%. Myocardial perfusion: There is normal distribution of activity in the right and left ventricular jalen cardium. No fixed or reversible perfusion defects. IMPRESSION: 1. Normal myocardial perfusion images. 2. Normal left ventricular volume and systolic function. 3. The patient experienced mild, transient chest pressure during Lexiscan infusion. No diagnostic EKG changes for ischemia. PQRS ATTESTATIONS: Measure 322 - Is this imaging test primarily performed on a low-risk surgery patient for preoperative evaluation within 30 days preceding their low-risk non-cardiac surgery? Low-risk surgery is defined as cardiac or myocardial infarction less than 1%, including (but not limited to) endoscopic pr ocedures, superficial procedures, cataract surgery, and excisional breast surgery: Answer: No Measure 323 - Is this imaging test performed primarily for the monitoring of an asymptomatic patient who had percutaneous coronary intervention on the visit date or within 2 years of the visit date? An swer: No Measure 324 - Is this imaging test performed primarily for the initial detection and risk assessment on an asymptomatic, low coronary heart disease patient? Low CHD risk definition = clinicians should consider the maximum number of available patient factors used to estimate risk based on [place] (A TP III criteria), typically age, gender, diabetes, smoking status, and use of blood pressure medicati on, and integrate age appropriate estimates for missing elements, such as LDL or standard blood press ure. Answer: No Dictated by: Camron Norwood M.D. on 12/21/2016 at 16:50 Approved by: Camron Norwood M.D. on 12/21/2016 at 16:54
--- NOTE | 2016-12-21 18:36 | NUR ---
Cardiac patient completed stress test and echo today, results still pending. patient tolerated well. denies CP/pressure or SOB. patient c/o low back pain, that has been chronic, pain medication has been effective. has been sinus rhythm throughout shift. continue to monitor.
[2016-12-21] MEDS ORDERED: Morphine ER 15 mg (MS Contin) Tablet PO SCH (20:15)
--- NOTE | 2016-12-21 20:30 | NUR ---
Pain Pt is very anxious about his pain medication. He has chronic back pain and wants his MS Contin reordered. I spoke with the night MD. MS Contin dose ordered for tonight. Pt aware that AM nurse and AM MD will [facility]. Pt reassured that he has short acting oxycodone ordered thru the night on a PRN basis.
--- NOTE | 2016-12-22 00:32 | NUR ---
Pain Pt found curled up on the couch, holding a pillow, crying. When I asked him why he was crying he stated, "I don't want to be a problem but my back hurts so much." The pt rated his pain at a 9 I reminded the patient that when he is in this much pain to use his call light and notify the nurse. Pt administered oxycodone and one tylenol tablet. He appeared to be less tearful. Plan to reassess pain level in 1/2 hour.
[2016-12-22 00:44] VITALS: BP 133/75; PULSE 81; RESP 20; O2SAT 96
[2016-12-22] MEDS: Sodium Chloride LOK Flush 10 mL Syringe IVFLUSH SCH ×2 (00:54→08:16)
--- NOTE | 2016-12-22 01:59 | CONS ---
[address] [address] CONSULTATION REPORT PATIENT: RENA SHEPHERD : 1965 MR#: [id number] ADMIT: 12/20/2016 JOB ID: [id number] DATE OF SERVICE: 12/21/2016 CHIEF COMPLAINT: Paroxysmal AFib. HISTORY OF PRESENT ILLNESS: The patient is a 51-year-old man with history of paroxysmal AFib diagnosed about two years ago, status post DC cardioversion in the past, oral anticoagulation, diabetes, hypertension, hyperlipidemia and ongoing smoking. He tells me he has been cardioverted multiple times and he said that he would like some help in controlling his AFib symptoms. He says that in the past four months he has been hospitalized and/or evaluated in the emergency department for paroxysmal AFib six times; some at [facility] and some at [facility]. During this particular hospitalization, he was admitted December 20 through the emergency department complaining of sudden onset of chest pain. He had AFib with RVR. Heart rate was 170 beats per minute. He converted chemically with diltiazem. No obvious triggers. He says he does not drink alcohol and he is compliant with medical therapy. He does not have history of AFib in his family. PAST MEDICAL HISTORY: 1. Paroxysmal AFib diagnosed three years ago. 2. Diabetes type 2. a. Most recent hemoglobin A1c is 12.5 as of November 18, 2016. 3. Hyperlipidemia, uncontrolled for diabetic. Most recent lipids December 21, 2016, total cholesterol 193, triglycerides 137, HDL 37, LDL 129. 4. Chronic pain syndrome, on narcotic contract at the [place]. FAMILY HISTORY: Father at age 66. Mother alive and well. SOCIAL HISTORY: He is a current everyday smoker and has been smoking since he was years old. ALLERGIES: 1. LISINOPRIL. 2. SIMVASTATIN. 3. CHANTIX. HOME MEDICATIONS: 1. Diltiazem 180 mg daily. 2. Metoprolol succinate 50 mg twice a day. 3. Pradaxa 150 mg daily. 4. Zetia 10 mg daily. 5. Albuterol metered-dose inhaler. 6. Tamsulosin 0.4 mg daily. 7. Aspirin 81 mg daily. 8. Gabapentin 400 mg 3 times a day. 9. MS Contin 15 mg 5 times a day. 10. Oxycodone 10 mg twice daily. 11. Reglan 5 mg 4 times a day as needed for nausea. 12. Zofran 4 mg daily as needed for nausea. 13. Zantac 150 mg twice a day. 14. Lantus 20 units twice a day. HOSPITAL MEDICATIONS: 1. Oxycodone every 4 hours as needed for pain. 2. MS Contin 15 mg, . 3. Ambien as needed for sleep. 4. Lantus 10 units twice a day. 5. Lispro sliding scale insulin. 6. Diltiazem 180 mg daily. 7. Metoprolol tartrate 50 mg twice a day. 8. Pradaxa 150 mg daily. 9. Gabapentin 1200 mg 3 times a day. 10. Famotidine 20 mg twice a day. 11. Zetia 10 mg daily. 12. Aspirin 81 mg daily. 13. Tamsulosin 0.4 mg daily. 14. Various p.r.n.'s including Reglan, albuterol and oral bowel regimen. REVIEW OF SYSTEMS: Significant for palpitations and chest pain associated with lightheadedness. He also reports feelings of severe anxiety about possible cardioversion in the future, and believes he had posttraumatic stress disorder after multiple cardioversions. Additionally, patient reports easy bruising. Otherwise, 10 point review of systems is negative. PHYSICAL EXAMINATION: Vital signs: Temperature 36.2. Blood pressure 139/89, up to 164/101. Pulse 60, up to 85 beats per minute. He is satting 95%, up to 99% on 1 L nasal cannula. Well-nourished man in no apparent distress. Eyes: No scleral icterus. Neck: Supple. No lymphadenopathy. No carotid bruits. Heart: Normal S1, S2. No murmurs, rubs, gallops. Lungs: Clear to auscultation anterior. Abdomen: Soft with positive bowel sounds. No hepatosplenomegaly. Extremities: Warm, well perfused with no clubbing, cyanosis or edema. Skin: No rashes or lesions. Labs were reviewed. His hematocrit is stable at 36%. Creatinine 0.5. Of note on admission, when he was in the throws of AFib recent potassium was 4.2, magnesium 1.9, glucose was very high at 598. Troponin T was negative x4. Laboratory and radiology review: Pharmacologic stress test with myocardial perfusion imaging demonstrated normal perfusion images, normal wall motion and LV systolic function. No significant ST-segment changes. Echocardiogram performed on December 21, 2016, is reassuring. Prior echo January 21, 2016, likewise was reassuring, showed normal LV size, wall thickness, wall motion, and systolic function. No significant valvular abnormalities. ASSESSMENT AND PLAN: 1. Hyperlipidemia, continue Zetia. Unable to tolerate statin in the past. 2. Diabetes. Patient is working with his primary care provider to achieve better glycemic control. His most recent A1c was greater than 11% and he is normally on Lantus at home, he is not on any oral hypoglycemics, and I defer that to his primary care provider. 3. Ischemic evaluation and management is reassuring. 4. Paroxysmal atrial fibrillation. The patient is eligible for class 1c antiarrhythmics because he has normal stress test. He did not do well with a combination of diltiazem and metoprolol because he continued to have multiple episodes of AFib. It is interesting that a lot of them are triggered by leaning forward, but there is no structural basis for this based on echocardiogram. I recommend to try class 1C antiarrhythmic and see how he responds to that. Continue diltiazem and add flecainide 50 mg by mouth twice a day. The patient has had multiple adverse reactions to medications in the past so I think it is reasonable to monitor him overnight and see how he does on the new medication. If he does well, he can be discharged on diltiazem, flecainide 50 twice a day, and Pradaxa for stroke prevention with close outpatient followup with primary visual designer, Dr. Stark. Thank you very much for the opportunity to evaluate him.
--- NOTE | 2016-12-22 02:22 | NUR ---
Pain relief Pt came out of his room to find RN in [facility] Pt stated, "I want you to know that I'm doing better." I assured him that he can cont to have his oxycodone every four hours as needed for pain relief Pt verbalized understanding and returned to his room
[2016-12-22 05:37] VITALS: BP 149/87; PULSE 74; RESP 20; O2SAT 95
[2016-12-22 05:54] LABS: Mean Corpuscular Hemoglobin 27.6 pg (27.0-35.0); Mean Corpuscular Volume 84.6 fL (81-100)
[2016-12-22 06:03] VITALS: PULSE 74
[2016-12-22 06:11] LABS: Magnesium 1.8 mg/dL (1.6-2.6)
[2016-12-22 08:00] VITALS: PULSE 101
[2016-12-22] MEDS: Diltiazem CD 180 mg ER24 Capsule PO SCH (08:11)
[2016-12-22] MEDS: Dabigatran 150 mg Capsule PO SCH (08:12)
[2016-12-22] MEDS: Insulin LISPRO 300 Unit/3 mL Inj SUBQ SCH ×2 (08:12→11:48)
--- NOTE | 2016-12-22 09:10 | DRSVH ---
[facility] [address] [place] [address] Echocardiogram Report Name: RENA SHEPHERD Study Date: 12/21/2016 Height: 70 in Hospital Exam Location: [facility] Weight: 183 lb Gender: Male BSA: 2.0 m2 : 1965 Age: 51 yrs BP: 139/89 mm Hg Reason For Study: Chest pain Ordering Physician: HOSPITALIST [facility] Performed By: Derick Rae Referring Physician: YADIEL SANCHEZ Interpretation Summary 1. Normal left ventricular size, wall thickness and systolic function with an estimated EF of 65 to 70% 2. Normal right ventricular size and systolic function. 3. No evidence for valvular pathology Compared to the previous study of 2016, no appreciable change Procedure: A two-dimensional transthoracic echocardiogram with color flow and Doppler was performed. The study quality was technically adequate. Comparison is made with the echocardiogram of 01/21/16. The patient was in normal sinus rhythm during the exam. Left Ventricle: There is normal left ventricular wall thickness. The left ventricle is normal in size. Mildly elevated outflow tract velocities. The ejection fraction is estimated to be 65-70%. No obvious wall motion abnormalities appreciated. Right Ventricle: The right ventricle is normal size. The right ventricular systolic function is normal. Atria: The left atrium is mildly dilated. Right atrial size is normal. Mitral Valve: The mitral valve is normal. There is trace mitral regurgitation. Aortic Valve: The aortic valve is trileaflet. The aortic valve opens well. No aortic regurgitation is present. Tricuspid Valve: The tricuspid valve leaflets are thin and pliable. There is a trace or physiologic amount of tricuspid regurgitation. Pulmonary artery pressures cannot be estimated because of the lack of a measurable TR jet velocity. Pulmonic Valve: The pulmonic valve is not well seen, but is grossly normal. Great Vessels: The aortic root is normal size. The ascending aorta is mildly enlarged. The IVC is of normal diameter and collapses greater than 50% with a sniff. This suggests a low right atrial pressure of 3 mm Hg. Pericardium/ Pleura There is no pericardial effusion. There is no pleural effusion. MMode/2D Measurements & Calculations LVIDd: 4.2 cm RA long axis LVOT diam: 2.3 cm LVIDs: 2.3 cm LA A2 area: 26.1 cm AoV Opening FS: 44.1 % LA A4 area: 20.0 cm RA area EPSS: 0.07 cm LA length (vol) Ao root diam IVSd: 0.98 cm : 18.2 cm LVPWd: 0.85 cm LA vol: 76.6 ml RA vol asc Aorta Diam LA vol index : 51.3 ml RA Ao Arch Diam (Prox : 25.5 mm2 Trans): 2.9 cm IVC diam: 1.6 cm LV hall. diameter/BSA LV sys. diameter/BSA TAPSE: 2.6 cm (cm/m^2): 2.1 (cm/m^2): 1.2 Doppler Measurements & Calculations Ao V2 max: 138.3 cm/secMV E max jared MV E/A: 1.4 PA V2 max Ao max P.6 mmHg : 102.7 cm/sec Med Peak E' Jared : 94.4 cm/sec Ao mean P.0 mmHg MV A max jared PA mean PG LVOT Max Jared : 72.1 cm/sec E/E' med: 12.9 : 2.1 mmHg : 115.2 cm/sec Lat Peak E' Jared LINNEA(I,D): 3.5 cm E/E' lat: 11.3 sev ratio: 0.85 E/e' average MV dec time: 0.14 sec Ao V2 mean LV V1 max PG PA V2 mean : 95.4 cm/sec : 69.4 cm/sec Ao V2 VTI: 27.0 cm LV V1 VTI: 22.9 cmPA pr(Accel) : 44.7 mmHg LINNEA(V,D): 3.4 cm2 LINNEA indexed to BSA (cm^2/m^2): 1.7 Reading Physician:09:09 AM
[2016-12-22 09:34] VITALS: BP 118/83; PULSE 93; RESP 18; O2SAT 97
[2016-12-22] MEDS: Insulin GLARgine 100 Unit/mL Syringe SUBQ SCH (10:49)
--- NOTE | 2016-12-22 11:08 | NUR ---
Social Work: Screening Data: Pt is on day 2 of hospitalization. Pt is a 51 y/o male admitted for afib with RVR, chest pain, hyperglycemia. Pt's PCP is Dr Reyes, pt's insurance is [facility]. MD states possible d/c for pt today. No BOXING PROMOTER needs identified. BOXING PROMOTER will continue to follow if needs arise. Assessment: Pt who is independent at baseline. Plan: Pt will d/c home via POV when medically stable, possibly today per MD. No BOXING PROMOTER needs identified. BOXING PROMOTER will continue to follow if needs arise. RORY Avendano
[2016-12-22] MEDS ORDERED: FLC50T PO (12:09)
--- NOTE | 2016-12-22 12:10 | NUR ---
Social Work: Discharge Data: Pt is on day 2 of hospitalization. EMR reviewed. D/C orders are in. No d/c planning needs at this time. VACCINE CUSTOMER REPRESENTATIVE will continue to follow if needs arise. Assessment: Pt who is independent at baseline. Plan: Pt will d/c home via POV today. No d/c planning needs at this time. VACCINE CUSTOMER REPRESENTATIVE will continue to follow if needs arise. RORY Avendano
--- NOTE | 2016-12-22 12:22 | PCM.DIMED ---
Roxanna Rose DO 12/22/16 1222: Discharge Instructions Date of Service Dec 22, 2016 Dates of Hospitalization Dec 20, 2016 at 21:08 Discharge Diagnosis Discharge Diagnosis 1. Paroxysmal atrial fibrillation 2. Hypertension 3. Diabetes mellitus, type M2, insulin dependent 4. Hyperlipidemia 5. Chronic low back pain with Sciatica 6. Gastroesophageal reflex disorder 7. Benign prostatic hypertrophy 9. Nicotine dependence Medication Instructions 1. Stop taking metoprolol 2. Continue diltiazem, 180 mg daily 3. Stat taking flecainide, 50 mg twice a day 4. Continue pradaxa, 150 mg twice a day Diet Heart Healthy Activity No restrictions Call your provider Fever or Chills, Shortness of breath, Bleeding, Chest pain, Vomitting, Excessive diarrhea, Weakness (unilateral) Patient Instructions Follow-up Provider: Carolann Reyes DO Follow-up with PCP in: 1 week Additional Information Please keep your scheduled appointment with your butcher head. Deion Thomas MD 12/23/16 0529: Discharge Instructions Attending's Statement The patient was seen and examined together with Dr. Rose on 12/22/2016 and I agree with the history, exam and plan as outlined in the note above. . Roxanna oRse DO Dec 22, 2016 12:22 Deion Thomas MD Dec 23, 2016 05:29
--- NOTE | 2016-12-22 13:08 | NUR ---
Discharge: Patient discharged to home @ approx 1300. IV d/c'd intact, telemetry removed, athletic monitor notified. Personal belongings sent home w/patient. Reviewed new prescriptions, home medication list, d/c instructions and follow up appointments. Verbalized understanding. Patient ambulated to [place] to meet and was accompanied by DOMESTIC LAUNDRY WORKER.
--- NOTE | 2016-12-22 13:21 | PCM.DC.MED ---
Discharge Summary Date of Service Dec 22, 2016 Dates of Hospitalization Date of Hospital Admission Dec 20, 2016 at 21:08 Date of Discharge: Dec 22, 2016 Providers: Admitting Physician: Jessie Denise DO Primary Care Physician: Carolann Reyes DO Attending Physician: Jessie Denise DO Diagnosis at Time of Discharge Diagnosis at Time of Discharge 1. Paroxysmal atrial fibrillation 2. Hypertension 3. Diabetes mellitus, type M2, insulin dependent 4. Hyperlipidemia 5. Chronic low back pain with Sciatica 6. Gastroesophageal reflex disorder 7. Benign prostatic hypertrophy 9. Nicotine dependence Consultations Cardiology, Dr. Marvin Procedures XRay, CTs & MRIs CXR IMPRESSION: The left hilum was normal 11/18/16. The mild prominence of the left hilum and this plain film imaging likely represents mild venous congestion. The clinical history includes atrial fibrillation. No definite pneumonia found. ECG 12 Lead NSR with rate of 96 Probably LAE Cardiac Echo Impression Echocardiogram Report Interpretation Summary 1. Normal left ventricular size, wall thickness and systolic function with an estimated EF of 65 to 70% 2. Normal right ventricular size and systolic function. 3. No evidence for valvular pathology Compared to the previous study of 2015, no appreciable change Other Diagnostics 1 DAY PHARMACOLOGICAL STRESS TEST IMPRESSION: 1. Normal myocardial perfusion images. 2. Normal left ventricular volume and systolic function. 3. The patient experienced mild, transient chest pressure during Lexiscan infusion. No diagnostic EKG changes for ischemia. Dictated and approved by: Camron Norwood M.D. on 12/21/2016 at 16:50 Brief History Per Admitting Physician: Jessie Denise DO: History of Present Illness: 51yo male war with chronic back pain since injury in the [place], 2 year history of paroxysmal AFib on Pradaxa, also history of PSVT, DM2 on insulin , HTN presented to our ED via EMS today with complaint of palpitations and chest pressure. Patient states that his symptoms were sudden in onset, with 8/ 10 chest pressure. EMS found the patient to be in atrial fibrillation, with a rate in the 170s. He was given a total of 50mg Cardizem, which dropped his rate to the 100-120s. Patient converted to a NSR on arrival to the ED, with chest pressure improved to 2/10 and now resolved. He reports having 5-6 episodes of atrial fibrillation since September of this year. He denies shortness of breath, fever, nausea, or vomiting. Patient admits to being anxious. Hospital Course Barrett Zeng is a [age] year old man with history of chronic back pain on chronic opioid therapy since the [place] and paroxysmal atrial fibrillation that started two years ago presents with chest pain and palpitations. His atrial fibrillation has been more frequent since September requiring around 7 treatments, both electrocardioversion and pharmacological, also self-converting without treatment twice he reports. 1. Paroxysmal Atrial Fibrillation, back to sinus rhythm with EMS giving cardizem in the field. -ECHO within normal limits -Cardiology, Dr. Marvin consulted -Discharged with the instructions to stop metoprolol tartrate, continue diltiazem 180mg daily, pradaxa 150mg twice a day and start flecainide 50 mg twice a day by mouth 2. Chronic Hypertension, stable -Continued home medications 3. Diabetes mellitus, type 2, insulin dependent, stable -Continued with current coverage including Lantus and ISS 4. Hyperlipidemia, present on admission. - Patient did not tolerate statin medications in the past - Continued zetia 10mg orally daily 5. Chronic low back pain with sciatica, present on admission, stable -Patient on morphine sulfate ER 15 mg tablet by mouth up to five times a day at home -Continued gabapentin and cyclobenzaprine -Continued with supportive care including pain control as needed 6. Gastroesophageal reflex disease, stable -Continued ranitidine 7. Benign prostatic hyperplasia, stable -Continue tamsulosin 8. Nicotine dependence, present on admission. Active -Nicotine patch provided Disposition: Patient was discharged home in a stable condition Exam Vital Signs (Last) Date Time Temp Pulse Resp B/P Pulse Ox O2 Delivery O2 Flow Rate FiO2 12/22/16 09:34 36.7 93 18 118/83 97 Room Air 12/21/16 04:05 1.00 Exam General: Alert, Oriented X3, Cooperative, No Acute Distress Head: Normocephalic, atraumatic. External ears normal. Eyes: Anicteric sclerae. Mouth: Mouth Normal, Mucous Membranes Moist/[place], dentures upper and lower Neck: Neck supple with full range of motion. Chest & Lungs: Clear to auscultation bilaterally with no crackles, wheezes, or rhonchi. Cardiovascular: Regular Rate/Rhythm, Normal S1, Normal S2, No Murmurs/Rubs/ Gallops Abdomen: Non-tender, Non-distended, No masses, Normoactive bowel tones, Soft Musculoskeletal: overview of extremities is normal Extremities: No cyanosis/clubbing/edema bilaterally Neurological: Grossly Neurologically Intact, Cranial Nerves 2-12 Intact, Normal Speech Test 12/20/16 19:24 12/21/16 05:42 12/21/16 23:30 12/22/16 05:15 Neutrophils (%) (Auto) 58.7% (40-74) Lymphocytes (%) (Auto) 30.0% (14-46) Monocytes (%) (Auto) 6.9% (4-12) Eosinophils (%) (Auto) 3.9% (0-5) Basophils (%) (Auto) 0.3% (0-3) Lactic Acid Level 2.5mmol/L (0.4-2.0) Total Bilirubin 0.2mg/dL (0.0-1.2) Aspartate Amino Transf (AST/SGOT) 11U/L (0-50) Alanine Aminotransferase (ALT/SGPT) 9U/L (0-44) Alkaline Phosphatase 140U/L (25-150) Total Protein 7.1g/dL (6.4-8.4) Albumin 4.0g/dL (3.4-5.0) Ketones Negative (Negative) Triglycerides Level 137mg/dL (0-149) Cholesterol Level 193mg/dL (100-199) LDL Cholesterol, Calculated 128.600mg/dL (0-99) VLDL Cholesterol 27.400mg/dL HDL Cholesterol 37mg/dL (>39) Cholesterol/HDL Ratio 5.22 (0.0-4.4) Troponin T 0.010ug/L (0.0-0.011) White Blood Count 9.4th/mm3 (3.8-10.1) Red Blood Count 4.67mil/mm3 (4.40-5.80) Hemoglobin 12.9g/dL (13.8-17.2) Hematocrit 39.5% (41.0-50.0) Mean Corpuscular Volume 84.6fL (81-100) Mean Corpuscular Hemoglobin 27.6pg (27.0-35.0) Mean Corpuscular Hemoglobin Concent 32.7% (32.0-37.0) Red Cell Distribution Width 14.0% (12.3-15.4) Platelet Count 401bil/L (150-400) Sodium Level 139mEq/L (134-144) Potassium Level 4.4mEq/L (3.5-5.2) Chloride Level 100mEq/L (97-108) Carbon Dioxide Level 26mmol/L (18-29) Blood Urea Nitrogen 7mg/dL (6-24) Creatinine 0.56mg/dL (0.76-1.27) Estimat Glomerular Filtration Rate 162mL/min (>59) Glucose Level 133mg/dL (60-99) Calcium Level 9.9mg/dL (8.5-10.1) Magnesium Level 1.8mg/dL (1.6-2.6) Microbiology Results blood culture pending Discharge Medications Discharge Medications Aspirin Chew (Aspirin Chew) 81 Mg Chew 81 MG PO QAM (Reported) Cholecalciferol (Vitamin D3) (Vitamin D3) 2,000 Unit Tablet 2,000 UNIT PO QAM ( Reported) Cyclobenzaprine (Cyclobenzaprine) 10 Mg Tablet 10 MG PO TID (Reported) Dabigatran Etexilate Mesylate (Pradaxa) 150 Mg Capsule 150 MG PO BID (Reported) Diltiazem ER (Diltiazem ER) 180 Mg Cap.er.24h 180 MG PO DAILY (Reported) Ezetimibe (Zetia) 10 Mg Tablet 10 MG PO QAM (Reported) Flecainide Acetate (Flecainide Acetate) 50 Mg Tablet 50 MG PO BID Prescribed by: LADONNA HARRIS DO Gabapentin (Gabapentin) 400 Mg Capsule 1,200 MG PO TID (Reported) Insulin Glargine (Lantus U100 Solostar Insulin Pen) 100 Unit/1 Ml Insuln.pen 20 UNIT SUBQ BID (Reported) Morphine Sulfate ER (MS Contin) 15 Mg Tablet.er 15 MG PO 5XD (Reported) 0400,0900,1400,1800,2300 Multivit with Calcium,Iron,Min (Therapeutic M) 1 Each Tablet 1 EACH PO QAM ( Reported) Oxycodone (Roxicodone) 5 Mg Tablet 10 MG PO BID (Reported) Ranitidine (Ranitidine) 150 Mg Capsule 150 MG PO BIDAC (Reported) Tamsulosin (Flomax) 0.4 Mg Capsule 0.4 MG PO QAM (Reported) As needed Acetaminophen (Acetaminophen) 325 Mg Tablet 650 MG PO Q4H PRN PRN For Headache ( Reported) Albuterol HFA (Proair HFA) 8.5 Gm Hfa.aer.ad 2 PUFFS INHALATION Q4H PRN PRN For Shortness of Breath (Reported) Metoclopramide (Reglan) 5 Mg Tablet 5 MG PO QID PRN PRN For Nausea Prescribed by: FELICITA RIOS MD Nitroglycerin SL (Nitrostat) 0.4 Mg Tab.subl 0.4 MG SL Q5MIN PRN PRN For Chest Pain (Reported) Ondansetron (Ondansetron) 4 Mg Tablet 4 MG PO QID PRN PRN For Nausea (Reported) Additional med instructions 1. Stop taking metoprolol 2. Continue diltiazem, 180 mg daily 3. Stat taking flecainide, 50 mg twice a day 4. Continue pradaxa, 150 mg twice a day Followup Plan Discharge Diet: Heart Healthy Discharge Activity: No restrictions Follow-up Provider: Carolann Reyes DO Follow-up with PCP in: 1 week Attending Statement The patient was seen and examined together with Dr. Harris on 12/22/2016 and I agree with the history, exam and plan as outlined in the note above. . copies to: Carolann Reyes Oksana S DO Dec 22, 2016 13:21 Deion Thomas MD Dec 23, 2016 05:31
[2017-02-07] MEDS ORDERED: OMEP40CA36 PO (18:24)
[2017-02-07] MEDS ORDERED: PROC-4 PO (18:24)
[2017-02-07] MEDS ORDERED: FLEC100T2 PO (18:24)
[2017-02-07] MEDS ORDERED: ALFU10TA11 PO (18:24)
== END 2016-12-22 13:05 | disposition home or self-care (01) ==
LOC: SED 19:21 → MPC 21:08
PROVIDERS: ADMIT Internal Medicine; ATTEND Internal Medicine
DX: I48.0 Paroxysmal atrial fibrillation (principal); I10 Essential (primary) hypertension; E11.9 Type 2 diabetes mellitus without complications; E78.5 Hyperlipidemia, unspecified; M54.40 Lumbago with sciatica, unspecified side; K21.9 Gastro-esophageal reflux disease without esophagitis; N40.0 Benign prostatic hyperplasia without lower urinary tract symptoms; I47.1 Supraventricular tachycardia; F17.210 Nicotine dependence, cigarettes, uncomplicated; Z79.4 Long term (current) use of insulin; Z79.891 Long term (current) use of opiate analgesic; Z79.82 Long term (current) use of aspirin; Z79.51 Long term (current) use of inhaled steroids; Z79.01 Long term (current) use of anticoagulants
CPT/HCPCS: 36415; 71010; 78452; 80048; 80053; 80061; 82009; 82948; 83605; 83735; 84484; 85025; 85027; 93005; 93017; 94799; 96361; 96374; 96375; 99285; A9502; C8929; G0378; J0280; J1815; J2060; J2270; J2785; J7030; J7040

== ENCOUNTER 2017-02-08 00:41 | Day surgery (SDC) | payer OTHER ==
[~2017-02-08] VITALS: Ht 177.8 cm; Wt 94.2 kg
[2017-02-08] VITALS (12 sets, daily range): BP systolic 129–179; BP diastolic 76–103; PULSE 84–96; RESP 11–18; O2SAT 93–100
[~2017-02-08 00:41] MED LIST changes: +ACET325T51 PO; +ALFU10TA11 PO; +CHOL200025 PO; -DILT-17 PO; +DILT180C83 PO; +FLEC100T2 PO; -INSU100I13 SUBQ; -METO50TA3 PO; -METO5TAB78 PO; +MULT-140 PO; +OMEP40CA36 PO; -ONDA-53 PO; +PROC-4 PO
[2017-02-08] MEDS ORDERED: Ondansetron 2 mg/mL 2 mL Inj ONE (00:42)
[2017-02-08] MEDS ORDERED: Rocuronium 10 mg/mL 5 mL Inj ONE (00:42)
[2017-02-08] MEDS ORDERED: Protamine Sulfate 10 mg/mL 5 mL Inj ONE ×3 (00:42→17:06)
[2017-02-08] MEDS ORDERED: Propofol 10,000 mCg/mL 20 mL Inj ONE (00:42)
[2017-02-08] MEDS ORDERED: MetoCLOpramide 5 mg/mL 2 mL Inj ONE (00:42)
[2017-02-08] MEDS ORDERED: Benzoc-Butamben-Tetraca Spray 20 Gm Spray TOPICAL ONE (06:00)
[2017-02-08 11:37] LABS: BASOPHILS % (AUTO) 0.4 % (0-3); EOSINOPHILS % (AUTO) 4.6 % (0-5); MONOCYTES % (AUTO) 8.4 % (4-12); Mean Corpuscular Hemoglobin 28.2 pg (27.0-35.0); Mean Corpuscular Volume 85.8 fL (81-100); NEUTROPHILS % (AUTO) 60.3 % (40-74); Platelet Count 369 bil/L (150-400)
[2017-02-08] MEDS ORDERED: INSU100I13 SUBQ (11:56)
[2017-02-08] MEDS ORDERED: ONDA-53 PO (11:56)
--- NOTE | 2017-02-08 11:56 | NUR ---
[facility] admit Admitted to [facility] about 1030. VSS. States chronic pain controlled at 02/11. Difficult IV start. IVT notified. IVs started and labs sent. See EMR for further info and assessment. Tele SR. Procedure and recovery reviewed and verbalizes understanding. at bedside. Awaiting clinical laboratory science professor.
[2017-02-08 11:58] LABS: INR 0.94 ratio
[2017-02-08] MEDS ORDERED: Insulin Human REGular-Omnicell 100 Unit/mL ONE (12:48)
[2017-02-08] MEDS ORDERED: Heparin 1,000 Units/500 mL NS Premix IV ONE (12:49)
[2017-02-08] MEDS ORDERED: Heparin 1,000 Unit/mL 10 mL Inj ONE ×2 (12:49→15:18)
[2017-02-08] MEDS ORDERED: 0.9% Sodium Chloride 5,000 ML ONE (12:49)
[2017-02-08] MEDS ORDERED: Heparin 10,000 Unit/1,000 mL NS Premix IV ONE (12:49)
--- NOTE | 2017-02-08 12:49 | PCM.HPANE ---
Patient Data Surgeon Admitting Provider: Attending Provider:Nick Maciel MD Primary Care Physician:Carolann Reyes DO Other Provider: Reason for Visit Paroxysmal Atrial Fibrillation Ht/WT & BMI Height (Feet): 5 Height (Inches): 10.00 Weight (Kilograms): 81.800 Body Mass Index 25.82 Allergies Coded Allergies: HUMBERTO Inhibitors (Verified Allergy, Severe, 02/08/17) isoniazid (Verified Allergy, Severe, Liver Failure, 02/08/17) simvastatin (Verified Allergy, Severe, Renal failure, 02/08/17) lisinopril (Verified Allergy, Unknown, 02/08/17) varenicline (Verified Allergy, Unknown, 02/08/17) Past Anesthesia History Anesthesia History: Denies:: Abnormal Airway, Anesthesia Reactions, Difficult Intubation, Fam Anesthesia Reaction, Fam Malignant Hypertherm, Malignant Hyperthermia Diabetes History Hx Diabetes?: Yes MRSA MRSA: No Medications Blood Thinner: Coumadin Hypertension Medication: Yes Home Meds Incl Beta Nolan: No Reported Medications Insulin Glargine (Lantus U100 Solostar Insulin Pen)100 Unit/1 Ml Insuln.pen20 Unit SUBQ BID #1 PENINJ Ref 0 02/08/17 Ondansetron 4 Mg Tablet4 Mg PO QID PRN For Nausea 02/08/17 Flecainide Acetate 100 Mg Acecmk759 Mg PO BID 02/07/17 Diltiazem ER 180 Mg Cap.er.23b245 Mg PO DAILY Ref 0 12/21/16 Acetaminophen 325 Mg Ywttlv621 Mg PO Q4H PRN For Headache Ref 0 12/20/16 Albuterol HFA (Proair HFA)8.5 Gm Hfa.aer.ad2 Puffs INHALATION Q4H PRN For Shortness of Breath 11/18/16 Oxycodone (Roxicodone)5 Mg Xjybua47 Mg PO BID PAIN 11/18/16 Nitroglycerin SL (Nitrostat)0.4 Mg Tab.subl0.4 Mg SL Q5MIN PRN For Chest Pain 11/18/16 Morphine Sulfate ER (MS Contin)15 Mg Tablet.er15 Mg PO 5XD 0400,0900,1400,1800,2300 11/18/16 Dabigatran Etexilate Mesylate (Pradaxa)150 Mg Wzixpin888 Mg PO BID 09/16/16 Tamsulosin (Flomax)0.4 Mg Capsule0.4 Mg PO QAM 12/01/15 Ranitidine 150 Mg Frpumfk796 Mg PO BIDAC 12/01/15 Ezetimibe (Zetia)10 Mg Gutgxc21 Mg PO QAM Ref 0 11/30/15 Gabapentin 400 Mg Capsule1,200 Mg PO TID 11/30/15 Cyclobenzaprine 10 Mg Wezvct01 Mg PO TID 11/30/15 Discontinued Reported Medications Prochlorperazine Maleate (Compazine)10 Mg Zsmjhr29 Mg PO 02/07/17 Omeprazole 40 Mg Capsule.dr40 Mg PO DAILY Ref 0 02/07/17 Alfuzosin ER 10 Mg Tab.er.24h10 Mg PO DAILY 02/07/17 Multivit with Calcium,Iron,Min (Therapeutic M)1 Each Tablet1 Each PO QAM 12/20/16 Cholecalciferol (Vitamin D3) (Vitamin D3)2,000 Unit Tablet1,000 Unit PO QAM 12/20/16 Aspirin Chew 81 Mg Chew81 Mg PO QAM Ref 0 12/20/16 Insulin Glargine (Lantus U100 Solostar Insulin Pen)100 Unit/1 Ml Insuln.pen20 Unit SUBQ BID 11/18/16 Ondansetron 4 Mg Tablet4 Mg PO QID PRN For Nausea 09/16/16 Discontinued Scripts Flecainide Acetate 50 Mg [place]quilo56 Mg PO BID #60 TABLET Prov:Roxanna Rose DO 12/22/16 Metoclopramide (Reglan)5 Mg Tablet5 Mg PO QID PRN For Nausea #30 TABLET Ref 0 Prov:Marco Cabral MD 11/20/16 History History of ENT Problems?: Yes HEENT History: Positive for:: Dysphagia (WITH PILLS) Hearing Problem Denies:: Abnormal Airway Cataracts Difficult Intubation Glaucoma Sinus Problem Denture Type: None Full- Upper Full- Lower Teeth Condition: Within Normal Limits Other HEENT Pertinent History: Upper and lower dentures Hx of Heart Problems?: Yes Cardiovascular History: Positive for:: Atrial Fibrillation Chest Pain Edema Heart Murmur Hypertension Irregular Heartbeat (afib) Denies:: AICD Cardiac Surgery Congestive Heart Failure Pacemaker Peripheral Vascular Thrombophlebitis Valvular Heart Disease Hx of Respiratory Problem?: Yes Respiratory History: Positive for:: Pneumonia (3x) Denies:: Asthma COPD Chest Surgery Dyspnea Emphysema Hemoptysis Tuberculosis (PPD reactive) Hx Neurologic Problems?: No Neurological History: Denies:: Alzheimer's Disease CVA Dementia Dizziness Headaches Parkinson's Disease Seizures Hx of GI Problems?: Yes Hx of Problems?: Yes Genitourinary History: Positive for:: HX of Hemodialysis (In the past after medication reaction) Kidney Stones Urinary Tract Infection HX of Peritoneal Dialysis: No Male Hx: Positive for:: Prostate Problems (BPH) Testicular Surgery (vasectomy) Denies:: Scrotal Mass Hx Musculoskeletal Problems?: Yes Musculoskeletal History: Positive for:: Back Injury (chronic pain) Denies:: Joint Replacement Musculoskeletal Trauma Hx of Psycho/Social Problems?: Yes Psycho Social History: Positive for:: Anxiety Hx Depression Denies:: Bipolar Disorder Suicide Attempt Hx Surgeries?: Yes Hx Any Other Health Problems?: Yes Other History: Positive for:: Hospitalization (A fib ) Denies:: Cancer Thyroid Disease History Blood Transfusions: Positive for:: Accept Blood Products? Denies:: Blood Transfuse Reaction Blood Transfusions Hx Diabetes: Yes Hx Alcohol Use: NoHx Substance Use: Yes Smoking Status: Current Every Day Smoker Have You Smoked inLast 12 mo: YesApprox How Many Cigarettes/day: 15 Stop/Bang Treated for Sleep Apnea?: No Do You Have a CPAP Machine?: No [place] Risk Assessment: Low Risk, <3 Yes Risk Assessment Category Category 1A: Patient has history of documented sleep apnea, and HAS NOT received any narcotic, sedative or anesthesia administration during this stay. Category 1B: Patient has history of documented sleep apnea, and HAS received any narcotic , sedative or anesthesia administration during this stay Category 2: Patient has SUSPECTED Obstructive Sleep Apnea, and HAS received any narcotic , sedative or anesthesia administration during this stay. Category 3: Patient has SUSPECTED Obstructive Sleep Apnea and HAS NOT received narcotic, sedative or anesthesia administration during this stay. Category 4: Outpatient in Procedural Areas with known sleep apnea or who screen positive for High Risk via the STOP/BANG questionnaire. Exam Exam Vital Signs Vital Signs Date Time Temp Pulse Resp B/P Pulse Ox O2 Delivery O2 Flow Rate FiO2 02/08/17 11:25 35.5 87 18 131/76 95 Room Air General Appearance: Oriented X3 HEENT/AIRWAY: MP 2 Lungs: Normal Air Movement Heart: Regular Rate/Rhythm Meds/Labs/Diagnostics Labs Test 02/08/17 11:15 White Blood Count 10.6th/mm3 (3.8-10.1) Red Blood Count 4.29mil/mm3 (4.40-5.80) Hemoglobin 12.1g/dL (13.8-17.2) Hematocrit 36.8% (41.0-50.0) Mean Corpuscular Volume 85.8fL (81-100) Mean Corpuscular Hemoglobin 28.2pg (27.0-35.0) Mean Corpuscular Hemoglobin Concent 32.9% (32.0-37.0) Red Cell Distribution Width 13.7% (12.3-15.4) Platelet Count 369bil/L (150-400) Neutrophils (%) (Auto) 60.3% (40-74) Lymphocytes (%) (Auto) 26.1% (14-46) Monocytes (%) (Auto) 8.4% (4-12) Eosinophils (%) (Auto) 4.6% (0-5) Basophils (%) (Auto) 0.4% (0-3) Prothrombin Time 10.0sec (8.1-12.5) Prothromb Time International Ratio 0.94ratio Sodium Level 136mEq/L (134-144) Potassium Level 4.1mEq/L (3.5-5.2) Chloride Level 97mEq/L (97-108) Carbon Dioxide Level 27mmol/L (18-29) Blood Urea Nitrogen 7mg/dL (6-24) Creatinine 0.50mg/dL (0.76-1.27) Estimat Glomerular Filtration Rate 185mL/min (>59) Glucose Level 201mg/dL (60-99) Calcium Level 9.3mg/dL (8.5-10.1) Plan Impression Patient chart reviewed, patient interviewed and anesthestic plan with risks, benefits, and alternatives discussed, and informed consent obtained. ASA Physical Status: ASA3 Severe Disease Anesthetic Support Modalities: Arterial Line Anesthetic Plan: GA Bene/Risks/Altern/Consents: Yes HP Complete Prior to Induction: Yes Matt Sanchez MD Feb 08, 2017 12:49
[2017-02-08] MEDS ORDERED: Heparin 25,000 Unit/500 mL 0.45% NS Premix IV ONE (12:50)
[2017-02-08] MEDS ORDERED: Lactated Ringer's 500 ML IV PRN (14:03)
[2017-02-08] MEDS ORDERED: Lactated Ringer's 1,000 ML IV SCH (14:03)
[2017-02-08] MEDS ORDERED: Dexamethasone 4 mg/mL Inj IVPUSH PRN (14:05)
[2017-02-08] MEDS ORDERED: Ondansetron 2 mg/mL 2 mL Inj IVPUSH PRN (14:05)
[2017-02-08] MEDS ORDERED: MetoCLOpramide 5 mg/mL 2 mL Inj IVPUSH PRN (14:05)
[2017-02-08] MEDS ORDERED: EPHEDrine Sulfate 50 mg/mL Inj IVPUSH PRN (14:05)
[2017-02-08] MEDS ORDERED: Phenylephrine 10,000 mCg/mL Inj IVPUSH PRN (14:05)
[2017-02-08] MEDS ORDERED: HYDROmorphone 1 mg/mL Inj IVPUSH PRN (14:05)
--- NOTE | 2017-02-08 17:00 | DRSVH ---
[facility] [address] [place] [address] Echocardiogram Report Name: RENA SHEPHERD Study Date: 02/08/2017 Hospital Exam Location: [facility] Gender: Male : 1965 Age: 51 yrs BP: 131/76 mmHg Reason For Study: AFIB Ordering Physician: Dr. Josh Maciel Performed By: Gutierrez Bangura Interpretation Summary No left atrial mass or thrombus visualized. No thrombus is detected in the left atrial appendage. There is trace mitral regurgitation. The aortic valve opens well. No tricuspid regurgitation. Procedure: Informed consent for Transesophageal Echocardiogram, and use of a contrast agent as needed, was obtained prior to the procedure. The patient was brought to the cardiac catheterization lab in a fasting state. Sedation was managed by anesthesiologist; see anesthesiology notes for details. A multifrequency, multiplane transesopheageal echocardiographic endoscope was inserted and manipulated in the standard fashion to achieve multiplane views. The transesophageal probe was passed without difficulty. A 2D transesophageal echocardiogram with spectral and color flow Doppler was performed. Limited views were obtained. The patient's vital signs, including blood pressure, heart rate, pulse oximetry and cardiac rhythm were monitored throughout the procedure and remained stable. The patient tolerated the procedure well without evidence of orophangeal or esophageal trauma. Comparison is made with the echocardiogram of 12/21/16. There were no complications. Left Ventricle: The left ventricular ejection fraction is grossly normal. Atria: No left atrial mass or thrombus visualized. No thrombus is detected in the left atrial appendage. Mitral Valve: The mitral valve is normal. There is trace mitral regurgitation. Aortic Valve: The aortic valve opens well. No aortic regurgitation is present. Tricuspid Valve: The tricuspid valve is normal. No tricuspid regurgitation. Electronically signed by: Chintan Williamson on Reading Physician:02/08/2017 04:59 PM
[2017-02-08] MEDS: fentaNYL-PF 50 mCg/mL 2 mL Inj IVPUSH PRN ×3 (17:54→22:24)
[2017-02-08] MEDS: 0.9% Sodium Chloride 1,000 ML IV SCH ×4 (17:55→18:25)
[2017-02-08] MEDS: Dabigatran 150 mg Capsule PO SCH (19:37)
[2017-02-08] MEDS ORDERED: Albuterol 2.5 mg/3 mL Inhalation Solution NEB PRN (19:55)
--- NOTE | 2017-02-08 20:02 | NUR ---
[facility]/Received/Recovery/Transfer To [facility] house laborer about 1300. Returned at 1740. VSS. BG 148. Tele SR. Bilateral groins without bleeding or hematoma. Moaning, restless and grimacing c/o 7/[address] Sanchez states no narcotics given during case. Last MS contin 15mg at 0600 at home. Normally pt takes 75mg in divided doses plus oxycodone. Total of Fentanyl 100mcg, Morphine Sulphate 8mg and Dilaudid 1mg IV given in divided doses, see eMAR for exact times and amounts. Only reported becoming tolerable after dilaudid. SPO2 92-93% on room air dozing so po pain meds not restarted in ANDREW. at bedside and updated. All meds, orders, and interventions explained to pt. and and they verbalize understanding. EKG done. Right arterial line discontinued intact and pressure held x 10minutes. No bleeding or hematoma. Pradaxa 150mg po given per MD order. Taking ice chips and po fluid without nausea. Report called to Chela Keen RN. Pt. transferred to 2026 via bed with all belongings in no acute distress. Reported pain starting to increase on arrival to floor. Bedside check done and RN informed. No other change in assessment.
[2017-02-08] MEDS ORDERED: Morphine ER 15 mg (MS Contin) Tablet PO PRN (20:25)
[2017-02-08] MEDS ORDERED: Glucose 40% Oral Gel 15 Gm Tube PO PRN (20:30)
[2017-02-08] MEDS: Insulin LISPRO Low-Dose Scale SUBQ SCH (20:34)
[2017-02-08] MEDS: Insulin GLARgine 100 Unit/mL Syringe SUBQ SCH (23:10)
--- NOTE | 2017-02-09 00:09 | PROCED ---
[address] [address] PROCEDURE NOTE PATIENT: RENA SHEPHERD : 1965 MR#: [id number] ADMIT: 02/08/2017 JOB ID: [id number] DATE OF SERVICE: 02/08/2017 PREOPERATIVE DIAGNOSIS(ES): 1. Paroxysmal drug-refractory atrial fibrillation. 2. Paroxysmal drug-refractory atrial flutter. POSTOPERATIVE DIAGNOSIS(ES): 1. Paroxysmal drug-refractory atrial fibrillation. 2. Paroxysmal drug-refractory atrial flutter. PROCEDURES PERFORMED: 1. Comprehensive electrophysiology study with left atrial pacing recording. 2. Three-dimensional electroanatomic mapping. 3. Atrial fibrillation ablation with pulmonary vein isolation. 4. Atrial flutter ablation (cavotricuspid isthmus ablation; supraventricular tachycardia ablation; additional atrial focus ablation). 5. Transseptal puncture x2. 6. Intracardiac echocardiography. 7. Barium esophagram. 8. Fluoroscopy. SURGEON: Nick Maciel MD BAR WAITER/WAITRESS: 1. Rex Streeter 2. Kaitlynn Tobar 3. Sterling Natarajan PA-C ANESTHESIA: General endotracheal anesthesia was undertaken for this case. INDICATION: The patient is a pleasant 51-year-old man with recurrent, highly symptomatic atrial fibrillation and flutter. After discussion of the risks and benefits of catheter-based mapping ablation for both, he opted to proceed. PROCEDURAL DESCRIPTION: Following informed signed consent, the patient was taken to the EP laboratory in a fasting, nonsedated state, where he was prepped and draped in the usual sterile fashion. He underwent a preprocedural transesophageal echocardiogram by Dr. Williamson, confirming lack of intracardiac thrombus. Please see separate dictated report for the details of that procedure. The bilateral groins were then infiltrated with 1% lidocaine. Then, using modified Seldinger technique, two 8-Senegalese sheaths were inserted in the right femoral vein. A 7 and 10-Senegalese sheath were inserted in the left femoral vein. Under fluoroscopic guidance, a deflectable decapolar catheter was advanced to the coronary sinus with the most proximal bipolar at the os of the sinus. An intracardiac echocardiography probe was advanced to the RV outflow tract, used to visualize the pericardial space. No effusion was noted. The ICE probe was pulled back into the right atrium and used to visualize the interatrial septum in assistance of transseptal puncture. Two transseptal punctures were performed in an identical fashion. Each of the short 8-Senegalese sheaths in the right groin were exchanged over a long wire for a Frey sheath dilator and [place] needle. The entire system was used to engage the interatrial septum. Then, under fluoroscopic pressure and ICE guidance, the septum was traversed twice to deploy the two Frey sheaths into the left atrium. The patient was heparinized for a goal ACT of 350 to 400 seconds for the entire time we were in the left atrium following the first and preceding the second transseptal puncture. A re-survey of the pericardial space showed no evidence of effusion. Through the two Frey sheaths, an FJ curved bidirectional SmartTouch ablation catheter was passed, as was a 20-pole PentaRay catheter. A three-dimensional electroanatomic map of the left atrium and four pulmonary veins was created using the Torrent LoadingSystems 3 system. Circumferential ablation lesions were then placed along the antrum of the four pulmonary veins, starting with the left upper and then the left lower, right upper and right lower pulmonary veins, achieving entrance and exit block in all four pulmonary veins. Once this was achieved, we disengaged from the left atrium. A re-survey of the pericardial space showed no evidence of effusion. The two Frey sheaths were exchanged over a long wire for short 9-Senegalese sheaths. Through these sheaths, the ablation catheter was re-deployed, as was a Livewire 20-pole catheter which was used to encircle the tricuspid anulus. Pacing was undertaken from the coronary sinus os while monitoring the atrial activation pattern on the Livewire catheter. A linear series of ablations was performed from the ventricular to the IVC aspect of the cavotricuspid isthmus at the 6 o'clock position, ultimately leading to medial to lateral block. Lateral to medial block was confirmed. During the 20-minute waiting period, bidirectional block was reconfirmed. The patient was given protamine to reverse heparin. All catheters and sheaths were removed. Manual pressure was held for hemostasis. The patient was transferred to the [facility] for monitoring and bedrest. During the course of this study, we did complete a comprehensive electrophysiology study with right atrial pacing recording, right ventricular pacing recording and His bundle recording and left atrial pacing recording. COMPLICATIONS: None. ESTIMATED BLOOD LOSS: 10 cc. FINDINGS: 1. Baseline rhythm was sinus with an RR interval of 772 msec, AL 159 msec, QRS 73 msec, QT 317 msec. 2. Intracardiac intervals: AH interval 76 msec, HV 56 msec. 3. Retrograde conduction: VA Wenckebach 480 msec, concentric atrial activation. 4. Atrial fibrillation ablation as described above with entrance and exit block in all four pulmonary veins. Of note, a barium esophagram was performed prior to the onset of ablation and the esophagus coursed closest to the posterior aspect of the left lower pulmonary vein. Lower wattage jason were placed in this region for shorter duration. 5. Cavotricuspid isthmus ablation as described above with bidirectional block. Specifically, trans-isthmus time was 142 msec in the medial to lateral direction and 143 msec in the lateral to medial direction. IMPRESSION: Successful pulmonary vein isolation and cavotricuspid isthmus ablation. PLAN: 1. Bed rest x4 hours. 2. Continue current medication regimen including flecainide, diltiazem, anticoagulation and ranitidine. 3. Monitoring overnight. 4. Follow up with Sterling Natarajan in clinic in 3-4 weeks and with me in 3 months. ATTENDING STATEMENT: Nick Maciel MD, electrophysiology attending, was present for and supervised/performed all aspects of this procedure.
[2017-02-09 03:01] VITALS: BP 163/100; PULSE 92; RESP 20; O2SAT 95
[2017-02-09 03:55] VITALS: PULSE 90
[2017-02-09] MEDS: fentaNYL-PF 50 mCg/mL 2 mL Inj IVPUSH PRN (05:13)
--- NOTE | 2017-02-09 07:32 | NUR ---
Back Pain/Chest Pain Pt c/o severe back pain at 7/10. Medicated PRN per orders. Pt also hypertensive, states this is r/t his pain level. Pt continues to report pain level as 7/10 or just above tolerable. Pt begins c/o chest pain this am, EKG obtained, shows NSR. Medicated with morphine and encouraged pt to get OOB. Pt ambulated around bed. States CP increases and sharpens with inspiration. Pt breathing in short rapid breaths. Sats stable on RA. Page to Dr. Maciel. Stat chest CT ordered, Negative for PE. states he suspects inflammation to be causing pain. Orders received for Solu Medrol IV. Hand off given to Elinor AGUIAR RN.
--- NOTE | 2017-02-09 07:50 | PCM.ANEP1 ---
Post Anesthesia PACU Phase 1 Assessment Vital Signs Vital Signs Date Time Temp Pulse Resp B/P Pulse Ox O2 Delivery O2 Flow Rate FiO2 02/09/17 03:55 90 02/09/17 03:01 36.9 92 20 163/100 95 Room Air Anesthetic Administered: GA Level of Alertness: Awake, talking Pain: No Pain Scale Score: 7 Nausea or Vomiting: No CV Function & Hydration Stable: Yes Airway Device: Lungs: Normal Air Movement PACU Phase 2 Assessment Patient Instructions Provided: N/A Matt Sanchez MD Feb 09, 2017 07:50
[2017-02-09 07:51] VITALS: PULSE 105
--- NOTE | 2017-02-09 08:00 | NUR ---
Deep breaths Pt states having hard time taking deep breaths. Listened encouraged relaxational breathing. Waiting for Solumedrol order in [facility]. Care continues.
[2017-02-09 08:27] VITALS: BP 171/115; PULSE 108; O2SAT 92
[2017-02-09] MEDS ORDERED: Diltiazem CD 180 mg ER24 Capsule PO SCH (08:30)
--- NOTE | 2017-02-09 08:50 | DRSVH ---
PROCEDURE: CT ANGIO CHEST PULMONARY EMBOLISM ([id number]) INDICATIONS: chest pain, difficulty breathing, R/O PE TECHNIQUE: After the administration of intravenous contrast, 2 mm thick sections acquired from the pulmonary api ashwini to the posterior costophrenic angles. 3-dimensional maximum intensity projection (MIP) coronal a nd sagittal reformats were then acquired through the thorax. For radiation dose reduction, the follo wing was used: automated exposure control, adjustment of mA and/or kV according to patient size. COMPARISON: [facility], CT, CT ANGIO CHEST, 02/01/2017, 10:12. FINDINGS: Image quality: Excellent. Pulmonary arteries: Pulmonary arteries are normal in size, and demonstrate no intraluminal filling d efects to suggest central pulmonary embolism. Lungs and pleura: There is a small groundglass opacity in the right middle lobe. Bibasilar opacities are likely atelectasis. There is tracer it effusion. No pneumothorax. Central and peripheral airway s are patent. Mediastinum: Heart size is normal. There is small pericardial effusion. No mediastinal or hilar ellis nopathy. Thoracic aorta is normal in caliber and enhancement. Esophagus is normal in caliber. Tiny hiatal hernia. Bones and chest wall: No suspicious bony lesions. Ribs and thoracic spine appear intact throughout. Thyroid gland is normal. No axillary or supraclavicular adenopathy. Abdomen: Visualized upper abdominal solid organs appear normal in the early arterial phase of enhanc ement. IMPRESSION: 1. No evidence for central pulmonary embolism. 2. Trace right effusion and bibasilar atelectasis. 3. Small pericardial effusion. 4. Small groundglass opacity may be mild pneumonia or pneumonitis. Dictated by: Camron Norwood M.D. on 02/09/2017 at 8:37 Approved by: Camron Norwood M.D. on 02/09/2017 at 8:49
[2017-02-09] MEDS ORDERED: MethylprednisoLONE Sodium Succinate 40 mg/mL Inj IVPUSH ONE (09:00)
[2017-02-09] MEDS: Insulin LISPRO Low-Dose Scale SUBQ SCH ×2 (09:07→13:58)
[2017-02-09] MEDS: Insulin GLARgine 100 Unit/mL Syringe SUBQ SCH (09:08)
[2017-02-09] MEDS: Dabigatran 150 mg Capsule PO SCH (10:11)
[2017-02-09] MEDS: Morphine ER 15 mg (MS Contin) Tablet PO SCH ×2 (10:11→14:16)
--- NOTE | 2017-02-09 11:44 | DRSVH ---
[facility] [address] [place] [address] Echocardiogram Report Name: RENA SHEPHERD Study Date: 02/09/2017 Height: 70 in Hospital Exam Location: [facility] Weight: 208 lb Gender: Male BSA: 2.1 m2 : 1965 Age: 51 yrs BP: 171/115 mmHg Reason For Study: PERICARDIAL EFFUSION Ordering Physician: VIKY STEVENSON Performed By: Gutierrez Bangura Interpretation Summary The left ventricle is normal in size. The ejection fraction is estimated to be 60-65%. There is no pericardial effusion. There is no significant valvular heart disease. Procedure: A limited 2D, color and Doppler echocardiogram was performed to assess for pericardial effusion. The study quality was technically adequate. Comparison is made with the echocardiogram of 02/08/17. The patient was in normal sinus rhythm during the exam. The patient was tachycardic with a heart rate of 100-105 beats per minute. Left Ventricle: The left ventricle is normal in size. There is normal left ventricular wall thickness. The ejection fraction is estimated to be 60-65%. There are no focal wall motion abnormalities. Right Ventricle: The right ventricle is normal in size and function. Atria: The left atrial size is normal. Borderline right atrial enlargement. Mitral Valve: The mitral valve is normal. There is trace mitral regurgitation. Aortic Valve: The aortic valve is trileaflet. The aortic valve opens well. Tricuspid Valve: The tricuspid valve is normal. No tricuspid regurgitation. Pulmonary artery pressures cannot be estimated because of the lack of a measurable TR jet velocity. Great Vessels: The ascending aorta is normal in size. The IVC is of normal diameter and collapses less than 50% with a sniff. This suggests a right atrial pressure of 8 mm Hg. Pericardium/ Pleura There is no pericardial effusion. There is an anterior echo-free space consistent with a fat pad. There is no pleural effusion. MMode/2D Measurements & Calculations LVIDd: 4.9 cm RA long axis asc Aorta LVIDs: 3.3 cm LA A2 area: 19.0 cm Diam: 3.3 cm FS: 33.2 % LA A4 area: 23.7 cm RA area IVSd: 0.92 cm LA length (vol): 6.2 cm LVPWd: 0.79 cm LA vol: 61.4 ml : 19.6 cm LA vol index RA vol: 67.7 ml RA : 31.9 mm2 IVC diam: 2.0 cm LV hall. diameter/BSA LV sys. diameter/BSA RVD1 (basal) RVD2 (mid) (cm/m^2): 2.3 (cm/m^2): 1.5 : 3.2 cm Doppler Measurements & Calculations MV E max jared: 85.9 cm/sec MV E/A: 1.3 MV dec time: 0.15 sec MV A max jared: 65.4 cm/sec Med Peak E' Jared: 8.5 cm/sec E/E' med: 10.2 MV A dur: 0.11 sec Electronically signed by: Chintan Williamson on Reading Physician:02/09/2017 11:44 AM
--- NOTE | 2017-02-09 12:40 | PCM.DIMED ---
Discharge Instructions Date of Service Feb 09, 2017 Dates of Hospitalization Discharge Diagnosis Discharge Diagnosis Paroxysmal Atrial Fibrillation with Rapid Ventricular Rates Diet Discharge Diet: Heart Healthy Activity Discharge Activity: Other (To prevent infection, do not sit in a bath tub, hot tub or pool for 5 days. To prevent bleeding, do not lift, push or pull more than 10 lbs for 5 days.) Call your provider Call your provider for: Fever or Chills, Bleeding, Excessive diarrhea, Weakness (unilateral) Patient Instructions Mid-level Provider (F9): Sterling Natarajan PA-C Follow-up with Mid-level in: 5 weeks Sterling Natarajan PA-C Feb 09, 2017 12:40
[2017-02-09] MEDS ORDERED: MTH4T PO (13:57)
--- NOTE | 2017-02-09 15:03 | NUR ---
Discharge Pt discharged to home at approximately 1450. Pt waiting for to sheepskin pickler. Patient given educational material for Atrial Fibrillation. Pt educated on no hot tubs, swimming or pools for 5 days. Pt reminded to prevent bleeding no push, lift, pull more than 10 lbs for 5 days. Per notes in discharge papers. Bilateral groin sites present with no bleeding, swelling or hematomas. Pt stated right groin site tender to palpation. Pt acknowledged and understood information. 3 IV's DC'd with catheter intact, tele DC'd engine monitor notified. Pt left with all personal belongings. Escorted by EMERGENCY VEHICLE DISPATCHER to lobby, pt stated too hot in room to wait for , asked to wait in lobby.
[2017-02-09 15:26] VITALS: BP 152/98; PULSE 106; RESP 19; O2SAT 95
--- NOTE | 2017-02-09 22:38 | DIS ---
[address] [address] DISCHARGE SUMMARY PATIENT: RENA SHEPHERD : 1965 MR#: [id number] ADMIT: 02/08/2017 JOB ID: [id number] DIS: 02/09/2017 DATE OF SERVICE: 02/09/2017 REASON FOR ADMISSION: Atrial fibrillation ablation procedure. CHIEF COMPLAINT: Recurrent episodes of rapid heartbeat. HISTORY OF PRESENT ILLNESS: The patient is a pleasant 51-year-old man with a structurally normal heart and a negative exercise stress test recently. He was referred to Dr. Maciel for recurrent episodes of atrial fibrillation. These episodes began about two years ago, and he has been highly symptomatic and required multiple visits to the ED and then cardioverted six times. He had been placed on flecainide and a calcium channel kandace and is anticoagulated with Pradaxa. He still has recurrent episodes of atrial fibrillation with ventricular response rates over 200 bpm. He was admitted for an ablation procedure. COURSE IN THE HOSPITAL: The patient was admitted through the [facility] and taken to the cardiac cath lab manager where he was first placed under general anesthesia by the anesthesiologist. He then had a CADENCE performed which showed no evidence of left atrial thrombus. The ablation procedure was undertaken and completed without incident. Because he has also had documented atrial flutter, a right atrial flutter procedure was also performed. At the end the procedure, the catheters and sheaths were removed, hemostasis was obtained, and he was awakened from anesthesia. He was transferred back to the [facility] for further recovery and then taken up to the [facility] for overnight care. He did well overnight until the assembler latches and springs when he began having chest pain. CT of the chest was performed that showed no evidence of pericardial effusion or pulmonary embolism. He was given increased doses of morphine and by noon he felt well to go home. His vital signs remained stable, he did not have recurrent arrhythmia and was not lightheaded or short of breath. DISPOSITION: The patient was discharged home in good condition with a follow-up appointment at the [facility] office in one month. He was asked to not lift, push or pull more than 10 pounds to prevent bleeding and to not sit in a hot tub, bathtub, or pool for five days to prevent infection. He will follow his usual heart healthy diet and take medications as prescribed. DISCHARGE MEDICATIONS: 1. Acetaminophen 650 mg q.4 h. p.r.n. 2. Albuterol inhaler two puffs q.4 h. p.r.n. 3. Cyclobenzaprine 10 mg t.i.d. 4. Pradaxa 150 mg b.i.d. 5. Diltiazem ER 180 mg daily. 6. Zetia 10 mg daily. 7. Flecainide 100 mg b.i.d. 8. Gabapentin 1200 mg t.i.d. 9. Insulin 20 units subcu b.i.d. 10. Morphine sulfate ER (MS Contin) 15 mg five times daily. 11. Nitroglycerin 0.4 mg sublingual tablets q.5 h. minutes p.r.n. chest pain. 12. Ondansetron 4 mg q.i.d. p.r.n. nausea. 13. Oxycodone 10 mg b.i.d. for pain. 14. Ranitidine 150 mg b.i.d. 15. Tamsulosin 0.4 mg daily. FINAL DIAGNOSES: 1. Paroxysmal atrial fibrillation. 2. Atrial flutter.
== END 2017-02-09 14:58 | disposition home or self-care (01) ==
LOC: SOUO 00:41 → PCC 19:27 → SOUO 02-09 14:58
PROVIDERS: ATTEND Internal Medicine Cardiovascular Disease
DX: I48.0 Paroxysmal atrial fibrillation (principal); I48.92 Unspecified atrial flutter; Z79.01 Long term (current) use of anticoagulants; Z79.899 Other long term (current) drug therapy; R07.9 Chest pain, unspecified; R06.00 Dyspnea, unspecified
CPT/HCPCS: 36415; 71275; 80048; 85025; 85610; 93005; 93613; 93655; 93656; 93662; C1730; C1731; C1732; C1759; C1769; C1893; C1894; C8924; C8925; J1170; J1644; J1815; J2270; J2405; J2720; J2765; J2920; J3010; J7030; Q9967